=== PATIENT | female | born 1985 | race Caucasian/White ===

== ENCOUNTER 2016-09-26 00:20 | Inpatient (IN) ==
[2016-09-26 00:37] LABS: URINE SOURCE VOIDED
[2016-09-26 00:46] LABS: BILIRUBIN URINE NEGATIVE (NEGATIVE); BLOOD URINE 4+ (NEGATIVE); GLUCOSE URINE NEGATIVE (NEGATIVE); LEUKOCYTES URINE 2+ (NEGATIVE); NITRITE URINE NEGATIVE (NEGATIVE); PH URINE 6.5; PROTEIN URINE 1+(30 mg/dL) mg/dL (NEGATIVE); SP GRAVITY URINE 1.005; UROBILINOGEN URINE NORMAL
[2016-09-26 00:47] LABS: CLARITY SLIGHTLY CLOUDY (CLEAR); COLOR YELLOW
[2016-09-26 00:49] LABS: UR AMPHETAMINES QUAL NONE DETECTED (NONE DETECT); UR BARBITUATES QUAL NONE DETECTED (NONE DETECT); UR BENZODIAZEPIN QUAL NONE DETECTED (NONE DETECT); UR CANNABINOIDS QUAL NONE DETECTED (NONE DETECT); UR COCAINE QUAL NONE DETECTED (NONE DETECT); UR MDMA QUAL NONE DETECTED (NONE DETECT); UR METHADONE QUAL NONE DETECTED (NONE DETECT); UR METHAMPHETAMINE QUAL NONE DETECTED (NONE DETECT); UR OPIATES QUAL NONE DETECTED (NONE DETECT); UR OXYCODONE QUAL NONE DETECTED (NONE DETECT); UR PCP QUAL NONE DETECTED (NONE DETECT); UR TCA QUAL NONE DETECTED (NONE DETECT)
[2016-09-26] MEDS ORDERED: LR 3,000 ML ONE (00:49)
[2016-09-26] MEDS ORDERED: LR 1,000 ML IV SCH (01:10)
[2016-09-26] MEDS ORDERED: KEFZOL 1 GM/D5W 1 GM/50 ML IVPB IV PRN (01:10)
[2016-09-26] MEDS ORDERED: AMPICILLIN 2 GM/NS 2 GM/100 ML IVPB IV ONE (01:10)
[2016-09-26] MEDS ORDERED: BRETHINE SUBQ ONE (01:10)
[2016-09-26] MEDS ORDERED: PEPCID ONE (01:10)
[2016-09-26] MEDS ORDERED: REGLAN ONE (01:10)
[2016-09-26] MEDS ORDERED: STADOL IV ONE (01:10)
[2016-09-26] MEDS ORDERED: CELESTONE SOLUSPAN IM ONE (01:10)
[2016-09-26] MEDS ORDERED: BICITRA ONE (01:24)
[2016-09-26] MEDS ORDERED: SODIUM CHLORIDE 0.9% INJ ONE (01:25)
[2016-09-26] MEDS ORDERED: PEPCID IV ONE (01:25)
[2016-09-26] MEDS ORDERED: REGLAN IV ONE (01:25)
--- NOTE | 2016-09-26 01:25 | OB/GYN PROGRESS NOTE ---
Progress Note OB - . OB Progress Note: Laboratory Results - last 24 hr 09/26/16 09/26/16 00:36 00:36 Urine Source VOIDED Urine Color YELLOW Urine Clarity SLIGHTLY CLOUDY A Urine pH 6.5 Ur Specific [place] 1.005 Urine Protein 1+(30 mg/dL) A Urine Ketones NEGATIVE Urine Blood 4+ Urine Nitrite NEGATIVE Urine Bilirubin NEGATIVE Urine Urobilinogen NORMAL Urine WBC 2+ A Urine Glucose NEGATIVE Urine Opiates Screen NONE DETECTED Ur Oxycodone Screen NONE DETECTED Urine Methadone Screen NONE DETECTED Ur Barbituates Screen NONE DETECTED Ur Tricyclics Screen NONE DETECTED Ur Phencyclidine Scrn NONE DETECTED Ur Amphetamines Screen NONE DETECTED U Methamphetamines Scrn NONE DETECTED Urine MDMA Screen NONE DETECTED U Benzodiazepines Scrn NONE DETECTED Urine Cocaine Screen NONE DETECTED U Cannabinoids Screen NONE DETECTED Patient reports contractions that started last night. Reports vaginal bleeding that started at 6:00pm. Reports ultrasound with DB 10/13/16 by outside sono and a second sono with DB 10/27/16 done in [place]. She has not had care. H/o substance abuse. Currently on subutex. Reports being in a rehab for 6 months. Cervix: 2.5/70/0 A/P: 30yo @ 37w3d by patient reported DB, non-reassuring heart tracing -to OR for repeat Nayeli Joyner MD SILVERWARE BUFFING MACHINE OPERATOR
[2016-09-26 01:28] LABS: HEMATOCRIT 28.2 % (37.0-47.0); HEMOGLOBIN 9.1 g/dL (12.0-16.0); IMM GRAN# 0.14 X1000 (0.0-0.04); IMM GRAN% 0.7 % (0.0-0.5); LYMPH# 1.38 X1000 (1.2-3.4); LYMPH% 6.5 % (20.5-51.1); MANUAL DIFF NEEDED? YES; MCH 27.1 PG (27-31); MCHC 32.3 g/dL (33-37); MCV 83.9 FL (81-99); MONO# 1.38 X1000 (0.11-0.59); MONO% 6.5 % (1.7-9.3); MPV 11.7 FL (7.4-10.4); NEUT% 86.3 % (42.2-75.2); PLT 134 X1000 (130-400); RBC 3.36 XMIL (4.2-5.4)
[2016-09-26] MEDS ORDERED: FENTANYL ONE (01:31)
[2016-09-26] MEDS ORDERED: PITOCIN 20 UNITS/LR 20 UNITS/1,000 ML IV.SOLN ONE (01:31)
[2016-09-26] MEDS ORDERED: PITOCIN ONE (01:31)
[2016-09-26] MEDS ORDERED: DURAMORPH ONE (01:31)
[2016-09-26 01:55] LABS: BANDS 7 % (0-1); LYMPHS 9 % (21-51); MONO 1 % (1-9)
[2016-09-26 01:56] LABS: METAMYELOCYTES 2 %
[2016-09-26 01:57] LABS: RPR NON-REACTIVE (NONREACTIVE)
[2016-09-26 02:12] LABS: RAPID HIV PRESUMPTIVE NEGATIVE
[2016-09-26] MEDS ORDERED: VERSED ONE (02:35)
[2016-09-26 02:39] LABS: BLOOD TYPE VENOUS; PO2(98.6) 20 mmHg (30-55); SAMPLE BLOOD; SAO2 29.6 % (40.0-85.0)
[2016-09-26 02:40] LABS: PCO2(98.6) 127 mmHg (40-60); pH(98.6) < 6.80 (7.32-7.43)
[2016-09-26] MEDS ORDERED: METHERGINE IV ONE (03:31)
[2016-09-26 03:32] LABS: UR AMPHETAMINES QUAL NONE DETECTED (NONE DETECT); UR BARBITUATES QUAL NONE DETECTED (NONE DETECT); UR BENZODIAZEPIN QUAL NONE DETECTED (NONE DETECT); UR CANNABINOIDS QUAL NONE DETECTED (NONE DETECT); UR COCAINE QUAL NONE DETECTED (NONE DETECT); UR MDMA QUAL NONE DETECTED (NONE DETECT); UR METHADONE QUAL NONE DETECTED (NONE DETECT); UR METHAMPHETAMINE QUAL NONE DETECTED (NONE DETECT); UR OPIATES QUAL NONE DETECTED (NONE DETECT); UR OXYCODONE QUAL NONE DETECTED (NONE DETECT); UR PCP QUAL NONE DETECTED (NONE DETECT); UR TCA QUAL NONE DETECTED (NONE DETECT)
[2016-09-26] MEDS ORDERED: PITOCIN 20 UNITS/LR 20 UNITS/1,000 ML IV.SOLN IV ONE (03:36)
[2016-09-26] MEDS ORDERED: PITOCIN 10 UNITS/LR 10 UNIT/1,000 ML IV.SOLN IV SCH (03:36)
[2016-09-26] MEDS ORDERED: MOTRIN PO PRN (03:36)
[2016-09-26] MEDS ORDERED: DEMEROL IM PRN (03:36)
[2016-09-26] MEDS ORDERED: BOOSTRIX VACCINE IM ONE (03:36)
[2016-09-26] MEDS ORDERED: PHENERGAN IM PRN (03:36)
[2016-09-26] MEDS ORDERED: HYDROXYZINE PO PRN (03:36)
[2016-09-26] MEDS ORDERED: PITOCIN IM PRN (03:36)
[2016-09-26] MEDS ORDERED: CYTOTEC PO PRN (03:36)
[2016-09-26] MEDS ORDERED: DEMEROL PO PRN ×2 (03:36)
[2016-09-26] MEDS ORDERED: HYDROXYZINE IM PRN (03:36)
[2016-09-26] MEDS ORDERED: M-M-R II VACCINE SUBQ ONE (03:36)
[2016-09-26] MEDS ORDERED: HEMABATE IM ONE (04:27)
[2016-09-26 05:05] LABS: HEMATOCRIT 27.6 % (37.0-47.0); MCH 27.4 PG (27-31); MCHC 32.6 g/dL (33-37); MCV 83.9 FL (81-99); MPV 11.7 FL (7.4-10.4); RBC 3.29 XMIL (4.2-5.4)
[2016-09-26] MEDS ORDERED: ZOFRAN IV PRN (05:08)
[2016-09-26] MEDS ORDERED: DILAUDID IV PRN (05:08)
[2016-09-26] MEDS ORDERED: AMPICILLIN 1 GM/NS 1 GM/50 ML IVPB IV SCH (05:10)
[2016-09-26] MEDS ORDERED: CYTOTEC PR PRN (05:12)
[2016-09-26] MEDS ORDERED: CYTOTEC ONE (05:14)
[2016-09-26] MEDS ORDERED: ROBITUSSIN-DM PO PRN (06:47)
[2016-09-26] MEDS: TORADOL IV SCH ×2 (07:43→12:11)
[2016-09-26 08:49] LABS: RUBELLA SCREEN IMMUNE (IMMUNE)
[2016-09-26] MEDS: MYLICON PO SCH ×5 (09:49→20:14)
[2016-09-26] MEDS: SUBUTEX SL SCH ×2 (10:03→20:14)
[2016-09-26 10:34] LABS: METHB 1.2 % (0.0-1.5); O2(CT) 5.9 mL/dL (15.0-23.0); SAMPLE BLOOD; THB 14.8 g/dL (11.5-17.4)
[2016-09-26 10:40] LABS: pH(98.6) < 6.80 (7.35-7.45)
[2016-09-26 10:43] LABS: PCO2(98.6) 127 mmHg (35-45)
[2016-09-26 10:45] LABS: PO2(98.6) 20 mmHg (60-100)
[2016-09-26 10:47] LABS: ALLEN TEST NO; BLOOD TYPE CORD BLOOD; DRAW SITE UMBILICAL; MODALITY ROOM AIR; SAO2 29.6 % (95.0-100.0)
[2016-09-26] MEDS: NORCO-10 PO PRN ×2 (14:21→18:55)
[2016-09-26 17:23] LABS: HEMATOCRIT 16.5 % (37.0-47.0); MCHC 32.1 g/dL (33-37); MCV 84.2 FL (81-99); MPV 11.4 FL (7.4-10.4); RBC 1.96 XMIL (4.2-5.4)
[2016-09-26 17:27] LABS: HEMOGLOBIN 5.3 g/dL (12.0-16.0)
[2016-09-26] MEDS ORDERED: NS 1,000 ML ONE (17:53)
[2016-09-26] MEDS: PERICOLACE PO SCH (20:14)
[2016-09-27] MEDS: AMBIEN PO PRN ×2 (00:16→22:53)
[2016-09-27] MEDS: NORCO-10 PO PRN ×5 (00:17→20:39)
[2016-09-27] MEDS ORDERED: LR 1,000 ML IV SCH (03:03)
--- NOTE | 2016-09-27 03:38 | OPERATIVE NOTE ---
PROCEDURE DATE: 09/26/2016 PROCEDURE PERFORMED: Repeat section. PREOPERATIVE DIAGNOSES: 1. A 30-year-old, 4, para 3-0-0-3, at unsure gestation of 37 weeks and 3 days versus 35 weeks and 3 days. 2. No care. 3. History of drug abuse. 4. labor. 5. Vaginal bleeding, likely due to abruption. 6. Nonreassuring heart tracing. 7. Prior x3 POSTOPERATIVE DIAGNOSES: 1. A 30-year-old, 4, para 3-0-0-3, at unsure gestation of 37 weeks and 3 days versus 35 weeks and 3 days. 2. No care. 3. History of drug abuse. 4. labor. 5. Vaginal bleeding, likely due to abruption. 6. Nonreassuring heart tracing. 7. Prior x3 8. Status post high transverse section. SURGEON: Dr. Nayeli Joyner. ESTIMATED BLOOD LOSS: 300 mL. ANESTHESIA: Spinal. COMPLICATIONS: None. TECHNIQUE: This 30-year-old, G 4, P 3-0-0-3, at unsure gestation of 37 weeks and 3 days versus 35 weeks and 3 days presented to labor and delivery in labor with vaginal bleeding and nonreassuring heart tracing at which point, decision was made for emergent section. Patient has a history of x3. Patient was taken to the OR and a spinal was then placed. Patient was placed in the dorsal supine position. Patient was prepped and draped in the normal sterile fashion. Anesthesia was found to be adequate. A Pfannenstiel incision was then made through the skin, carried down through the subcutaneous tissue to the fascia. The fascia was then nicked in the middle and extended laterally with a knife and the Bernstein scissors. Zunilda clamps were then used to grasp the superior edge of the fascia. The rectus muscles were then dissected off of the fascia. The same was done to the inferior edge of the fascia. The rectus muscles were then in the midline using the scalpel. The peritoneum was identified and entered sharply using the Metzenbaum scissors. The peritoneum was then extended laterally, manually. A high transverse uterine incision was then made along with an inferior T incision. The was delivered atraumatically with good fundal pressure. The baby was delivered and bulb suctioned at delivery. The cord was clamped and cut, and the was passed off to the pediatrics team. Cord gas was obtained. However, unable to obtain cord blood due to minimum blood within the cord. The placenta was then delivered, meal- pieced out from the uterus. The uterus was exteriorized and cleared of clots and debris. The incision was then closed with running locked sutures of 0 Vicryl. A second layer of 0 Vicryl was used in an imbricating fashion. Then [id number] sutures of 0 Vicryl were used for good hemostasis. Good hemostasis was noted and the uterus was replaced into the abdominal cavity. Irrigation was performed until clear. Surgicel was placed over the uterine incision. The peritoneum was closed with running sutures of 3-0 Vicryl. The fascia was reapproximated with running sutures of 0 Vicryl and the skin was closed with running sutures of 3- 0 Monocryl. The patient was stable in the OR and the was stable in the nursery. FINDINGS: A 3 pound 12 ounce female with Apgars of 1, 7, and 9, with a likely gestation of 32 weeks. cc: Nayeli Joyner MD MTDD
[2016-09-27 07:49] LABS: BASO% 0.2 % (0.0-0.8); HEMATOCRIT 26.5 % (37.0-47.0); HEMOGLOBIN 8.9 g/dL (12.0-16.0); IMM GRAN# 0.11 X1000 (0.0-0.04); IMM GRAN% 0.6 % (0.0-0.5); LYMPH# 1.31 X1000 (1.2-3.4); LYMPH% 6.9 % (20.5-51.1); MANUAL DIFF NEEDED? YES; MCHC 33.6 g/dL (33-37); MCV 83.3 FL (81-99); MONO# 0.56 X1000 (0.11-0.59); MPV 11.6 FL (7.4-10.4); NEUT% 89.3 % (42.2-75.2); PLT 166 X1000 (130-400); RBC 3.18 XMIL (4.2-5.4)
[2016-09-27] MEDS: MYLICON PO SCH ×5 (08:27→20:39)
[2016-09-27] MEDS: SUBUTEX SL SCH ×2 (08:27→20:39)
[2016-09-27 09:08] LABS: BANDS 2 % (0-1); LYMPHS 7 % (21-51); MONO 3 % (1-9)
[2016-09-27 10:54] LABS: HEPATITIS B SURFACE ANTIGEN SEE COMMENTS
[2016-09-27 10:56] LABS: HIV ANTIBODY SCREEN SEE COMMENTS
--- NOTE | 2016-09-27 14:55 | OB/GYN PROGRESS NOTE ---
Progress Note OB - . Patient Problems: Current Active Problems Problem Status Onset No care in current Acute Hx of drug abuse Acute Intrauterine Acute OB Progress Note: Vital Signs - 24 hr 09/26/16 16:00 09/26/16 16:15 09/26/16 18:41 Temperature 98.2 F 97.6 F Pulse Rate 86 90 Respiratory Rate 18 20 Blood Pressure 89/41 95/51 O2 Sat by Pulse Oximetry 97 97 98 09/26/16 18:55 09/26/16 19:10 09/26/16 20:00 Temperature 97.7 F 98.5 F 98.2 F Pulse Rate 83 88 89 Respiratory Rate 18 18 Blood Pressure 93/50 106/59 108/61 O2 Sat by Pulse Oximetry 98 97 98 09/26/16 22:15 09/27/16 02:59 09/27/16 07:34 Temperature 98.8 F 99.4 F 99.5 F Pulse Rate 99 H 97 H 100 H Respiratory Rate 18 18 16 Blood Pressure 118/70 106/63 117/70 O2 Sat by Pulse Oximetry 99 96 95 09/27/16 07:45 09/27/16 11:15 Temperature 98.9 F Pulse Rate 92 H 88 Respiratory Rate 18 20 Blood Pressure 120/70 O2 Sat by Pulse Oximetry 96 97 Laboratory Results - last 24 hr 09/26/16 09/26/16 09/26/16 00:31 01:14 01:14 WBC RBC Hgb Hct MCV MCH MCHC RDW Std Deviation Plt Count MPV Immature Gran % (Auto) Neut % (Auto) Lymph % (Auto) Lassen % (Auto) Eos % (Auto) Baso % (Auto) Immature Gran # (Auto) Neut # (Auto) Lymph # (Auto) [place]assen # (Auto) Eos # (Auto) Baso # (Auto) Segmented Neutrophils Band Neutrophils Lymphocytes Monocytes Chlamydia/GC DNA Probe SEE COMMENTS Hep Bs Antigen SEE COMMENTS HIV 1&2 Antibody Screen Blood Type A POSITIVE Antibody Screen NEGATIVE Crossmatch See Detail 09/26/16 09/26/16 09/27/16 02:12 16:50 07:00 WBC 25.01 H 18.86 H RBC 1.96 L 3.18 L Hgb 5.3 L* D 8.9 L D Hct 16.5 L D 26.5 L D MCV 84.2 83.3 MCH 27.0 28.0 MCHC 32.1 L 33.6 RDW Std Deviation 15.7 H 15.3 H Plt Count 146 D 166 MPV 11.4 H 11.6 H Immature Gran % (Auto) 0.6 H Neut % (Auto) 89.3 H Lymph % (Auto) 6.9 L Lassen % (Auto) 3.0 Eos % (Auto) 0.0 Baso % (Auto) 0.2 Immature Gran # (Auto) 0.11 H Neut # (Auto) 16.85 H Lymph # (Auto) 1.31 Lassen # (Auto) 0.56 Eos # (Auto) 0.00 Baso # (Auto) 0.03 Segmented Neutrophils 88 H Band Neutrophils 2 H Lymphocytes 7 L Monocytes 3 Chlamydia/GC DNA Probe Hep Bs Antigen HIV 1&2 Antibody Screen SEE COMMENTS Blood Type Antibody Screen Crossmatch Patient reports pain is well controlled. She is ambulating and voiding without difficulty. Reports passing flatus. Tolerating diet. Baby is at [facility]. Patient reports that baby is doing well and breathing on his own. Reports baby has a feeding tube. Denies headache, SOB, RUQ or abdominal pain, or visual changes Gen: NAD, alert Abd: soft, appropriately tender, fundus is firm and at the umbilicus; incision is clean dry and intact with steri strips in place Pelvis: minimal lochia Ext: 1+ edema bilaterally in lower extremities; edema in right hand A/P: 30yo who is POD#1 s/p urgent Repeat high transverse , h/ o substance abuse, no care -continue routine care -continue subutex -continue regular diet -encourage ambulation Dispo: home POD#2 or POD#3 Nayeli Joyner MD DIESEL TECHNICIAN MECHANIC
[2016-09-27] MEDS ORDERED: LASIX PO ONE (16:30)
[2016-09-27] MEDS: NICODERM PATCH TD SCH (16:55)
[2016-09-27] MEDS: PERICOLACE PO SCH (20:39)
[2016-09-27] MEDS: FERROUS SULFATE PO SCH (20:39)
[2016-09-27] MEDS: DULCOLAX PR PRN (22:56)
[2016-09-28] MEDS: MYLICON PO PRN ×2 (03:38→18:54)
[2016-09-28] MEDS: NORCO-10 PO PRN ×5 (03:39→22:36)
[2016-09-28 06:54] LABS: BE 1.8 mmoll (-3.0-3.0); BLOOD TYPE ARTERIAL; DRAW SITE R RADIAL; METHB 1.3 % (0.0-1.5); O2(CT) 10.7 mL/dL (15.0-23.0); PCO2(98.6) 34 mmHg (35-45); PO2(98.6) 56 mmHg (60-100); SAMPLE BLOOD; SAO2 94.1 % (95.0-100.0); THB 8.4 g/dL (11.5-17.4); pH(98.6) 7.48 (7.35-7.45)
[2016-09-28 06:59] LABS: ALLEN TEST YES; MODALITY ROOM AIR
[2016-09-28 07:23] LABS: BASO% 0.1 % (0.0-0.8); HEMATOCRIT 24.1 % (37.0-47.0); HEMOGLOBIN 7.8 g/dL (12.0-16.0); IMM GRAN# 0.12 X1000 (0.0-0.04); IMM GRAN% 0.9 % (0.0-0.5); LYMPH# 1.22 X1000 (1.2-3.4); LYMPH% 8.8 % (20.5-51.1); MANUAL DIFF NEEDED? YES; MCH 27.3 PG (27-31); MCHC 32.4 g/dL (33-37); MCV 84.3 FL (81-99); MONO# 0.59 X1000 (0.11-0.59); MONO% 4.3 % (1.7-9.3); MPV 10.9 FL (7.4-10.4); NEUT% 85.9 % (42.2-75.2); PLT 127 X1000 (130-400); RBC 2.86 XMIL (4.2-5.4)
--- NOTE | 2016-09-28 07:46 | EKG Report ---
Test Performed on : 09/28/2016 06:38:16 AM Test Reason : fever, cough Blood Pressure : / mmHG Vent. Rate : 123 BPM Atrial Rate : 123 BPM P-R Int : 128 ms QRS Dur : 076 ms QT Int : 300 ms P-R-T Axes : 050 055 024 degrees QTc Int : 429 ms Sinus tachycardia. Possible Left atrial enlargement Borderline ECG No previous ECGs available Confirmed by Manuel Mansfield MD ([id number]) on 10/04/2016 10:01:49 PM
[2016-09-28 07:55] LABS: BANDS 1 % (0-1); LYMPHS 5 % (21-51); MONO 1 % (1-9)
[2016-09-28] MEDS: MYLICON PO SCH ×4 (08:19→20:17)
[2016-09-28] MEDS: FERROUS SULFATE PO SCH ×2 (08:19→20:17)
[2016-09-28] MEDS: NICODERM PATCH TD SCH ×2 (08:19→19:08)
[2016-09-28] MEDS: SUBUTEX SL SCH ×2 (08:19→20:17)
--- NOTE | 2016-09-28 08:58 | Diag Imaging Result Doc PS360 ---
EXAM: CHEST-2 VIEWS INDICATION: cough, decreased SaO2, fever TECHNIQUE: 2 views COMPARISON: None. FINDINGS: There is suggestion of mild infiltrate and/or subsegmental atelectasis at the lung bases, more prominent on the right. There is blunting of the costophrenic angles suggesting possible trace effusions. There is no evidence of pneumothorax. Cardiac silhouette and central vasculature are grossly unremarkable. IMPRESSION: Suggestion of mild bibasilar atelectasis and/or infiltrate, most prominent on the right, and questionable trace effusions. Electronically signed by Olvin Dietrich 09/28/2016 8:56 AM
[2016-09-28 09:06] LABS: AGAP 14; ALBUMIN 2.1 g/dL (3.5-5.0); ALKALINE PHOSPHATASE 167 U/L (32-104); BUN 13 mg/dL (8-22); CALCIUM 7.2 mg/dL (8.8-10.2); CHLORIDE 103 mmol/L (98-107); COSMO 274; GOT 9 U/L (10-30); GPT < 5 U/L (10-36); POTASSIUM 3.3 mmol/L (3.5-5.1); SODIUM 137 mmol/L (136-145); TCO2 21 mmol/L (25-35); TOTAL PROTEIN 4.8 g/dL (6.3-8.3)
--- NOTE | 2016-09-28 09:14 | CONSULTATION ---
DATE OF CONSULTATION: 09/28/2016 CHIEF COMPLAINT: Medical consultation for low-grade temp and leukocytosis. HISTORY OF PRESENTING ILLNESS: This is a 30-year-old female who was admitted on 09/26/2016 for a of her fourth baby. She did well with her procedure, but was noted to have elevation in her white blood cell count on 09/26/2016 of 25.01. It is down today to 13.83, but at 3:40 this a.m. on 09/28/2016, she had a low-grade temp of 100.3 degrees. This a.m., she is saturating 89% on room air. It is noted that she is a 1 to 2 pack a day smoker, and has been so since she was 14 years old, so we will obtain a chest x-ray. We have repeated her ABG, and we will follow along with this patient throughout the remainder of her hospitalization. We will now place her on O2 per protocol to keep saturations greater than 92%. Her site is clean and dry. No signs of infection noted at this time. PAST MEDICAL HISTORY: She had preeclampsia with this last , otherwise no medical problems. PAST SURGICAL HISTORY: x4. FAMILY HISTORY: Lung cancer in both of her grandparents. SOCIAL HISTORY: She currently lives with family. She is a 1 to 2 pack a day smoker, and has been so since she was 14 years old. No alcohol use and no illicit drug use. It is noted that she takes Subutex 8 mg sublingually b.i.d. IMAGING AND LABORATORY DATA: Laboratory data for today shows a white blood cell count of 13.83, hemoglobin 7.8, hematocrit 24.1. I do note here that she received 2 units of packed red blood cells on 09/26/2016 when she dropped her hemoglobin and hematocrit to 5.3 and 16.5, but that is improving. ABG this a.m. showed a pH of 7.48, pCO2 of 34, PO2 of 56, bicarb 26.2. Glucose 101. Chest x-ray is pending this morning. EKG this a.m. showed sinus tachycardia at 123. REVIEW OF SYSTEMS: She denies any blurred vision, dizziness, chest pain. She has had a productive cough, some mild shortness of breath. Denied any constipation, diarrhea, burning or hurting with urination. PHYSICAL EXAMINATION: Vital Signs: This a.m. with a temperature of 98.9 degrees, pulse 130, respirations 20, blood pressure 123/70. It is noted that around 3:40 a.m. today, she had a temperature of 100.3 degrees. General: This is a 30-year-old female who is lying in the bed, answers questions appropriately. HEENT: Normocephalic and atraumatic. Pupils are equal, round, and reactive to light. Extraocular movements are intact. The oropharynx and nares are clear. Neck: Supple. Lungs: Clear to auscultation bilaterally with equal lung expansion and chest wall movement. Heart: Regular rate and rhythm. No murmurs, rubs, or gallops. Abdomen: Soft, nontender, nondistended. Steri-Strips to incision, dry and intact. No erythema or edema noted. Extremities: There is no clubbing, cyanosis, or edema. Neurological: Cranial nerves II through XII are grossly intact. ASSESSMENT: 1. Hypoxemia. 2. Leukocytosis. 3. Tachycardia. 4. Tobacco abuse. 5. Status post section on 09/26/2016. PLAN: We will place her on O2 per protocol, incentive spirometry, check a CMP this a.m. and a UA. Chest x-ray again is pending. Her white cells, even though they are elevated, have improved as she is down to 13.83. At her highest on 09/26/2016, they were 25.01, so we will wait until we get the chest x-ray results and the UA back to see if there is truly any infection going on. Will give her some DuoNebs every 4 hours as this may strictly just be related to her tobacco use as she is again, a 1 to 2 pack a day smoker, and did not quit during her , and further orders after review of pending tests. Thank you for the opportunity to follow this patient throughout the remainder of her hospitalization. Dictated by ISA Nino for Tom Carlos MD cc: ISA Nino MD Emerald V. Screws, MD
[2016-09-28] MEDS: DUONEB (A & A) INH SCH ×4 (10:01→23:01)
[2016-09-28 11:21] LABS: BILIRUBIN URINE NEGATIVE (NEGATIVE); BLOOD URINE 4+ (NEGATIVE); CLARITY CLEAR (CLEAR); COLOR YELLOW; GLUCOSE URINE NEGATIVE (NEGATIVE); LEUKOCYTES URINE 2+ (NEGATIVE); NITRITE URINE NEGATIVE (NEGATIVE); PH URINE 6.5; PROTEIN URINE 1+(30 mg/dL) mg/dL (NEGATIVE); UROBILINOGEN URINE NORMAL
[2016-09-28 11:27] LABS: URINE CULTURE PL NEEDED? YES; URINE EPITHELIAL CELLS >10 /HPF (<10); URINE RBC 20-40 /HPF (<10); URINE SOURCE CLEAN CATCH
[2016-09-28] MEDS ORDERED: NS 500 ML IV ONE (13:56)
[2016-09-28] MEDS ORDERED: KLOR-CON PO ONE (13:58)
[2016-09-28] MEDS ORDERED: ZITHROMAX 500 MG/NS 500 MG/250 ML IVPB IV SCH (14:00)
[2016-09-28] MEDS ORDERED: ROCEPHIN 1 GM/NS 1 GM/50 ML IVPB IV SCH (14:00)
[2016-09-28] MEDS ORDERED: NS 250 ML ONE (17:52)
[2016-09-28] MEDS ORDERED: VANCOMYCIN IV PER PHARMACY MISC SCH (18:30)
[2016-09-28] MEDS ORDERED: VANCOMYCIN 1,500 MG in NS 250 ML IV ONE (20:00)
[2016-09-28] MEDS: PERICOLACE PO SCH (20:17)
[2016-09-28] MEDS: AMBIEN PO PRN (22:36)
--- NOTE | 2016-09-28 23:03 | OB/GYN PROGRESS NOTE ---
Progress Note OB - . Patient Problems: Current Active Problems Problem Status Onset Status post emergency section Acute No care in current Acute Hx of drug abuse Acute Intrauterine Acute OB Progress Note: Vital Signs - 24 hr 09/28/16 00:07 09/28/16 03:39 09/28/16 05:20 Temperature 99.0 F 100.3 F H 98.9 F Pulse Rate 111 H 128 H 130 H Respiratory Rate 20 20 Blood Pressure 115/70 123/70 O2 Sat by Pulse Oximetry 99 95 94 L 09/28/16 08:21 09/28/16 10:11 09/28/16 11:35 Temperature 99.6 F 98.5 F Pulse Rate 130 H 120 H 130 H Respiratory Rate 19 22 18 Blood Pressure 108/67 88/56 O2 Sat by Pulse Oximetry 89 L 90 L 95 09/28/16 19:28 09/28/16 20:14 Temperature 100.7 F H Pulse Rate 132 H 136 H Respiratory Rate 20 20 Blood Pressure 108/59 O2 Sat by Pulse Oximetry 86 L 96 09/28/16 06:50 - Final Blood 09/28/16 06:55 - Final Blood Laboratory Results - last 24 hr 09/28/16 09/28/16 09/28/16 06:33 06:55 06:55 WBC 13.83 H RBC 2.86 L Hgb 7.8 L Hct 24.1 L MCV 84.3 MCH 27.3 MCHC 32.4 L RDW Std Deviation 15.2 H Plt Count 127 L MPV 10.9 H Immature Gran % (Auto) 0.9 H Neut % (Auto) 85.9 H Lymph % (Auto) 8.8 L [place] % (Auto) 4.3 Eos % (Auto) 0.0 Baso % (Auto) 0.1 Immature Gran # (Auto) 0.12 H Neut # (Auto) 11.89 H Lymph # (Auto) 1.22 [place] # (Auto) 0.59 Eos # (Auto) 0.00 Baso # (Auto) 0.01 Segmented Neutrophils 93 H Band Neutrophils 1 Lymphocytes 5 L Monocytes 1 Specimen Type ARTERIAL Sample Site R RADIAL pH 7.48 H pCO2 34 L pO2 56 L HCO3 26.2 H Base Excess 1.8 Oxyhemoglobin 89.8 L* ABG O2 Sat (Calculated) 10.7 L ABG O2 Saturation 94.1 L ABG Carboxyhemoglobin 3.30 H ABG Methemoglobin 1.3 Davidson Test YES A-a O2 Difference 51.0 Total Hemoglobin 8.4 L Lactate 1.90 Blood Gas Modality ROOM AIR FiO2 % 21.0 Sodium 137 Potassium 3.3 L Chloride 103 Carbon Dioxide 21 L Anion Gap 14 BUN 13 Creatinine 0.8 Estimated GFR/1.73 m2 > 60 BUN/Creatinine Ratio 16 Glucose 92 Calculated Osmolality 274 Calcium 7.2 L Total Bilirubin 0.20 AST 9 L ALT < 5 L Alkaline Phosphatase 167 H Total Protein 4.8 L Albumin 2.1 L Globulin 3.0 Albumin/Globulin Ratio 1.0 Urine Source Urine Color Urine Clarity Urine Turbidity Urine pH Ur Specific [place] Urine Protein Ur Glucose (Stick) Urine Ketones Ur Ketones (Stick) Urine Blood Urine Nitrite Urine Bilirubin Urine Urobilinogen Urobilinogen Dipstick Urine Leukocytes Urine WBC (Auto) Urine RBC (Auto) U Epithel Cells (Auto) Urine Bacteria (Auto) Urine Microscopic RBC Urine WBC Urine Microscopic WBC Ur Epithelial Cells Urine Bacteria Urine Glucose 09/28/16 09/28/16 10:00 11:06 WBC RBC Hgb Hct MCV MCH MCHC RDW Std Deviation Plt Count MPV Immature Gran % (Auto) Neut % (Auto) Lymph % (Auto) [place] % (Auto) Eos % (Auto) Baso % (Auto) Immature Gran # (Auto) Neut # (Auto) Lymph # (Auto) [place] # (Auto) Eos # (Auto) Baso # (Auto) Segmented Neutrophils Band Neutrophils Lymphocytes Monocytes Specimen Type Sample Site pH pCO2 pO2 HCO3 Base Excess Oxyhemoglobin ABG O2 Sat (Calculated) ABG O2 Saturation ABG Carboxyhemoglobin ABG Methemoglobin Davidson Test A-a O2 Difference Total Hemoglobin Lactate Blood Gas Modality FiO2 % Sodium Potassium Chloride Carbon Dioxide Anion Gap BUN Creatinine Estimated GFR/1.73 m2 BUN/Creatinine Ratio Glucose Calculated Osmolality Calcium Total Bilirubin AST ALT Alkaline Phosphatase Total Protein Albumin Globulin Albumin/Globulin Ratio Urine Source CLEAN CATCH Cancelled Urine Color YELLOW Cancelled Urine Clarity CLEAR Urine Turbidity Cancelled Urine pH 6.5 Cancelled Ur Specific [place] 1.010 Cancelled Urine Protein 1+(30 mg/dL) A Cancelled Ur Glucose (Stick) Cancelled Urine Ketones NEGATIVE Ur Ketones (Stick) Cancelled Urine Blood 4+ Cancelled Urine Nitrite NEGATIVE Cancelled Urine Bilirubin NEGATIVE Cancelled Urine Urobilinogen NORMAL Urobilinogen Dipstick Cancelled Urine Leukocytes Cancelled Urine WBC (Auto) Cancelled Urine RBC (Auto) Cancelled U Epithel Cells (Auto) Cancelled Urine Bacteria (Auto) Cancelled Urine Microscopic RBC 20-40 A Urine WBC 2+ A Urine Microscopic WBC 10-20 A Ur Epithelial Cells >10 A Urine Bacteria 1+ Urine Glucose NEGATIVE Patient is without complaint. Continues to have trouble with coughing up phlegm. Denies chest pain or SOB. Gen: NAD, alert Abd: soft, appropriately tender, fundus firm and 1 finger breadth below umbilicus, incision clean dry and intact with steri strips in place Pelvis: minimal lochia Ext: 1+ edema bilaterally A/P: A/P: 30yo who is POD#2 s/p urgent Repeat high transverse C- section, hemorrhage s/p 2 units of pRBCs, h/o substance abuse, no care, febrile morbidity, tachycardia, positive blood cultures, pneumonia, atelectasis -continue routine care -patient is s/p Hospitalist consult; continue to follow recommendations -s/p chest x-ray -s/p EKG -incentive spirometer -encourage ambulation Dispo: remain hospitalized Nayeli Joyner MD MACHINE PRECISION ETCHER
[2016-09-29] MEDS: MOTRIN PO PRN (01:33)
[2016-09-29 03:04] LABS: UR AMPHETAMINES QUAL NONE DETECTED (NONE DETECT); UR BARBITUATES QUAL NONE DETECTED (NONE DETECT); UR BENZODIAZEPIN QUAL NONE DETECTED (NONE DETECT); UR COCAINE QUAL NONE DETECTED (NONE DETECT); UR MDMA QUAL NONE DETECTED (NONE DETECT); UR METHADONE QUAL NONE DETECTED (NONE DETECT)
[2016-09-29 03:05] LABS: UR CANNABINOIDS QUAL NONE DETECTED (NONE DETECT); UR METHAMPHETAMINE QUAL NONE DETECTED (NONE DETECT); UR OPIATES QUAL PRESUMPTIVE POSITIVE (NONE DETECT); UR OXYCODONE QUAL NONE DETECTED (NONE DETECT); UR PCP QUAL NONE DETECTED (NONE DETECT); UR TCA QUAL NONE DETECTED (NONE DETECT)
[2016-09-29] MEDS: DUONEB (A & A) INH SCH ×6 (03:59→22:49)
[2016-09-29 05:22] LABS: BILIRUBIN URINE NEGATIVE (NEGATIVE); CLARITY VERY CLOUDY (CLEAR); COLOR YELLOW; GLUCOSE URINE NEGATIVE (NEGATIVE); URINE SOURCE CLEAN CATCH
[2016-09-29 05:23] LABS: BLOOD URINE 4+ (NEGATIVE); LEUKOCYTES URINE 2+ (NEGATIVE); NITRITE URINE NEGATIVE (NEGATIVE); PROTEIN URINE 1+(30 mg/dL) mg/dL (NEGATIVE); UROBILINOGEN URINE NORMAL
[2016-09-29 05:28] LABS: URINE CULTURE PL NEEDED? YES; URINE EPITHELIAL CELLS <10 /HPF (<10)
[2016-09-29 05:29] LABS: URINE CAST NONE SEEN /LPF; URINE CRYSTAL NONE SEEN /HPF
[2016-09-29 07:07] LABS: BASO% 0.1 % (0.0-0.8); HEMATOCRIT 20.5 % (37.0-47.0); HEMOGLOBIN 6.6 g/dL (12.0-16.0); IMM GRAN# 0.21 X1000 (0.0-0.04); IMM GRAN% 1.2 % (0.0-0.5); LYMPH# 1.31 X1000 (1.2-3.4); LYMPH% 7.2 % (20.5-51.1); MANUAL DIFF NEEDED? YES; MCH 27.6 PG (27-31); MCHC 32.2 g/dL (33-37); MCV 85.8 FL (81-99); MONO# 1.14 X1000 (0.11-0.59); MONO% 6.3 % (1.7-9.3); MPV 11.7 FL (7.4-10.4); NEUT% 85.2 % (42.2-75.2); PLT 73 X1000 (130-400); RBC 2.39 XMIL (4.2-5.4)
[2016-09-29 07:08] LABS: AGAP 13; BUN 11 mg/dL (8-22); CALCIUM 7.1 mg/dL (8.8-10.2); CHLORIDE 104 mmol/L (98-107); COSMO 277; POTASSIUM 3.9 mmol/L (3.5-5.1); SODIUM 139 mmol/L (136-145); TCO2 22 mmol/L (25-35)
[2016-09-29] MEDS: FERROUS SULFATE PO SCH ×2 (09:22→21:26)
[2016-09-29] MEDS: SUBUTEX SL SCH ×2 (09:22→21:26)
[2016-09-29] MEDS: NORCO-10 PO PRN ×3 (09:22→19:55)
[2016-09-29] MEDS: MYLICON PO SCH ×4 (09:23→21:29)
[2016-09-29] MEDS: NICODERM PATCH TD SCH (09:29)
[2016-09-29] MEDS: ZOSYN 3.375 GM/NS 3.375 GM/50 ML IVPB IV SCH ×2 (10:05→19:35)
[2016-09-29] MEDS ORDERED: NS 100 ML ONE (10:08)
--- NOTE | 2016-09-29 11:37 | PROGRESS NOTE ---
DATE: 09/29/2016 SUBJECTIVE: Patient resting quietly in bed. Has now been transferred from the to the medical unit, to room 270. OBJECTIVE: Vital Signs: Temperature 97.7 degrees, pulse 108, respirations 20, blood pressure 118/74, saturating 95% on room air. General: This is a 30-year-old female, status post section on 09/26/2016. HEENT: Normocephalic and atraumatic. Pupils are equal, round, reactive to light. Extraocular movements are intact. Oropharynx and nares are clear. Neck: Supple. Lungs: Decreased breath sounds to bilateral lower lobes. Upper lobes are clear. There is equal lung expansion and chest wall movement. Heart: Regular rate and rhythm. No murmurs, rubs, or gallops. Abdomen: Soft. There is some tenderness to her section site. Steri- Strips dry and intact. Bowel sounds are present x4 quadrants. Extremities: No clubbing, cyanosis, or edema. Neurologic: The cranial nerves 2-12 appear grossly intact. LABORATORY DATA: White blood cell count of 18.23, hemoglobin of 6.6, hematocrit 20.5, and platelets 73,000. Sodium 139, potassium 3.9, chloride 104, CO2 of 22, BUN of 11 , creatinine 0.5, glucose 106. Urinalysis this a.m. showed 4+ blood, 2+ white blood cells, and 1 + bacteria. Urine drug screen showed presumptive positive for opiates. Blood cultures showed Gram -positive cocci with a presumptive positive for Methicillin-resistant Staphylococcus aureus, confirmation to follow, x2 sets. ASSESSMENT: 1. Presumptive positive Methicillin-resistant Staphylococcus aureus bacteremia. 2. Anemia. 3. Bilateral lower lobe pneumonia. 4. Tobacco abuse. PLAN: Again, she was transferred from to the medical unit. We will transfuse 2 units of packed red blood cells today. We will go ahead and place her on MRSA precautions, since it is a presumptive positive. We will remove those if she turns out to be negative. We will check an echocardiogram. We have consulted Infectious Disease, Dr. Baldwin. We will obtain a sputum culture. We will place her on vancomycin per pharmacy protocol and Zosyn 3.375 g IV q.6. Patient instructed that she cannot leave the floor, no smoking, and she verbalizes understanding. Will recheck a CBC and BMP in the a.m. Dictated by ISA Nino for [place] MD cc: ISA Nino MD Emerald V. Screws, MD pt examined , agree with above, will need to rule out endocarditis and follow closely APENOT MTDD
[2016-09-29] MEDS ORDERED: NS 250 ML ONE (12:12)
[2016-09-29 12:47] LABS: BANDS 1 % (0-1); HYPOCHROM OCCASIONAL; LYMPHS 6 % (21-51); MONO 2 % (1-9)
[2016-09-29] MEDS ORDERED: VANCOMYCIN 1 GM in NS 250 ML IV SCH (14:00)
--- NOTE | 2016-09-29 19:55 | CONSULTATION ---
DATE OF CONSULTATION: 09/29/2016 CONCLUSION: Patient has a methicillin-resistant Staph aureus bacteremia. She also may have a bibasilar pneumonia which would be due to the same organism i.e. methicillin- resistant Staph aureus. Exactly how this infection originated is somewhat uncertain. The patient could have developed pneumonia following her section and then the pneumonia was responsible for the patient's bacteremia. On echocardiogram there may be a vegetation on the tricuspid valve and if this is so then would appear that the patient developed endocarditis and then there was secondary pneumonia to that. If indeed she does have methicillin-resistant Staph aureus tricuspid valve endocarditis that would be very suspicious for IV drug use causing the infection. RECOMMENDATIONS: I agree with treating the patient for at least 2 weeks if she just has the bacteremia and possible pneumonia. If however it is determined that she has tricuspid valve endocarditis then she will require a 6 week treatment with IV vancomycin. I have written not to install the PICC until we are certain that the repeat blood cultures which were drawn today are negative. Specifically I would wait until the repeat blood cultures are negative at 48 hours which would mean the PICC at the earliest would be put in on SundayOctober 02. DISCUSSION: The patient had a section. She has developed fever and some cough. Her blood cultures are growing methicillin-resistant Staph. Her chest x-ray shows bibasilar infiltrates versus atelectasis. On the echocardiogram there may be a vegetation on the tricuspid valve although the [employer] certified network associate has not read the study yet. The patient's lab tests show a CBC the white count is 18,230, hemoglobin 6.6 and platelet count is 73,000. Creatinine is 0.5. GFR is greater than 60. Her liver function studies were normal except for the alkaline phosphatase which was 167. The patient urinalysis did show white cells and bacteria but the urine culture was negative. The patient's blood cultures as mentioned above are growing methicillin-resistant Staph aureus. The patient's drug screen was positive for opiates. PAST MEDICAL HISTORY/REVIEW OF SYSTEMS: Eyes and ears: She denies difficulty hearing or seeing. Neck: No stiffness. Respiratory: No cough or dyspnea. The patient now since she has been in the hospital is trying to cough to clear her lungs. Cardiovascular: No chest pain or palpitations. GI: No nausea, vomiting, or diarrhea. : No dysuria or flank pain. Endocrine: She is not a diabetic and she does not have thyroid disease. Neurologic: She does not have seizures and she does not report any motor or sensory loss. Integument: No rash. 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 She has delivered all her children by C- section. PREVIOUS HOSPITALIZATIONS AND OPERATIONS: The patient has had 4 C-sections. MEDICAL DISEASES: Positive for preeclampsia. INFECTIOUS DISEASE HISTORY: Positive for UTI. FAMILY HISTORY: Positive for diabetes mellitus and myocardial infarction. SOCIAL HISTORY: The patient is . She smokes cigarettes. She denies doing drug use or drinking alcoholic beverages. ALLERGIES: Chart shows no known drug allergies. Drug screen was positive for opiates. HOME MEDICATIONS: Include oxycodone, ferrous sulfate, Colace and Subutex. PHYSICAL EXAMINATION: Vital Signs: Temperature is 98.3 degrees, pulse 104, respirations 20, blood pressure 98/59. General: The patient looks somewhat ill. She is in no acute distress however Head, eyes, ears, nose, and Throat: No drainage noted from the nose or ears. Examination of the mouth did not show any white patches or ulcers. Neck: No meningismus. Thorax: No increased AP diameter of the chest. Lungs: There were a few bibasilar rales. Cardiovascular: Regular heart rate. I did not hear a murmur. The patient has a small amount of edema in both legs. Abdomen: Soft and nontender. The patient's incision was intact. There was no erythema. Neurologic: Patient is alert. She can move her extremities. There is no tremor. Her sensation was intact to touch. Her memory, as regarding her medical history was intact also. Integument: No rash noted. Thank you for the consult. ADDENDUM: Discussed with cardiology-patient has a vegetation on the tricuspid valve. PEG to be ordered by Dr. Raymundo. cc: MD Nayeli Davidson MD [facility] CENTERHugo
[2016-09-29] MEDS: PERICOLACE PO SCH (21:26)
[2016-09-29] MEDS: AMBIEN PO PRN (21:26)
[2016-09-29] MEDS ORDERED: BLISTEX MEDICATED BERRY LIP BALM TOP PRN (21:37)
[2016-09-30] MEDS: NORCO-10 PO PRN ×5 (00:26→21:41)
[2016-09-30] MEDS: DUONEB (A & A) INH SCH ×6 (04:04→23:09)
[2016-09-30] MEDS: MYLICON PO PRN (05:25)
[2016-09-30 07:27] LABS: MANUAL DIFF NEEDED? NO
[2016-09-30 07:31] LABS: BASO% 0.1 % (0.0-0.8); EOS# 0.02 X1000 (0.0-0.7); EOS% 0.1 % (0.0-10.0); HEMATOCRIT 31.3 % (37.0-47.0); HEMOGLOBIN 10.5 g/dL (12.0-16.0); IMM GRAN# 0.18 X1000 (0.0-0.04); IMM GRAN% 1.2 % (0.0-0.5); LYMPH# 1.28 X1000 (1.2-3.4); LYMPH% 8.6 % (20.5-51.1); MCH 28.1 PG (27-31); MCHC 33.5 g/dL (33-37); MCV 83.7 FL (81-99); MONO# 0.78 X1000 (0.11-0.59); MONO% 5.2 % (1.7-9.3); MPV 11.1 FL (7.4-10.4); NEUT% 84.8 % (42.2-75.2); PLT 89 X1000 (130-400); RBC 3.74 XMIL (4.2-5.4)
[2016-09-30 07:44] LABS: AGAP 14; BUN 9 mg/dL (8-22); CALCIUM 7.7 mg/dL (8.8-10.2); CHLORIDE 103 mmol/L (98-107); COSMO 278; POTASSIUM 3.8 mmol/L (3.5-5.1); SODIUM 140 mmol/L (136-145); TCO2 23 mmol/L (25-35)
[2016-09-30] MEDS: NICODERM PATCH TD SCH (08:57)
[2016-09-30] MEDS: SUBUTEX SL SCH ×2 (08:57→21:19)
[2016-09-30] MEDS: MYLICON PO SCH ×5 (08:57→21:19)
[2016-09-30] MEDS: FERROUS SULFATE PO SCH ×2 (08:57→21:19)
[2016-09-30] MEDS: VANCOMYCIN 1,500 MG in NS 250 ML IV SCH (08:57)
--- NOTE | 2016-09-30 12:36 | PROGRESS NOTE ---
DATE: 09/30/2016 SUBJECTIVE: Patient resting quietly in bed. States she is having some abdominal pain to her section insertion site. OBJECTIVE: It is noted that around midnight this a.m. she had a temperature of 102.9 degrees. Blood pressure 121/75. She as saturating 89% on 2 L via nasal cannula. This a.m. HEENT: Normocephalic and atraumatic. Pupils are equal, round, and reactive to light. The extraocular movements are intact. The oropharynx and nares are clear. Neck is supple. Lungs are clear to auscultation bilaterally with equal lung expansion and chest wall movement. Heart with regular rate and rhythm. No murmurs, rubs, or gallops. Abdomen soft. There is tenderness to her incision site. Bowel sounds are present in all 4 quadrants. The site is clean and dry at this time. Extremities: No clubbing, cyanosis, or edema. Neurological: Cranial nerves 2-12 are grossly intact. LABORATORY DATA: White blood cell count of 14.86. Hemoglobin 10.5, hematocrit 31.3, platelets 89,000. Sodium 140, potassium 3.8, chloride 103, CO2 of 23. BUN of 9. Creatinine 0.5, glucose 97. Her final blood culture results show a definite MRSA bacteremia. We repeated her blood cultures again yesterday. They are gram-positive cocci. Also, her urine culture has gram-positive cocci. We are waiting on the sensitivities for those two. ASSESSMENT AND PLAN: 1. Methicillin-resistant Staphylococcus aureus bacteremia. Per Infectious Diseases documentation, her echocardiogram showed the possibility of some vegetation. She will need a transesophageal echocardiography. She will continue her IV antibiotic treatment in hospital. Right now, she will need a PICC line placed once we get some clear blood cultures. We will recheck those again tomorrow. If she does have a vegetation, she will need 6 weeks of IV home antibiotic therapy. Otherwise, 2 weeks of IV antibiotic per Infectious Disease documentation. 2. Anemia, resolved, status post 2 units of packed red blood cells. 3. Bilateral lower lobe pneumonia. We will continue her antibiotics, breathing treatments. We are going to recheck her O2 saturation, continue O2 per protocol. 4. Tobacco abuse. The patient instructed she is not allowed to leave the floor , and she has a nicotine patch in place. Dictated by ISA Nino for [place] Ray[place]undo MD cc: ISA Nino MD Emerald V. Screws, MD pt has tricuspid endocarditis, per echo report, will need 6 weeks of IV abx, with IVDU hx, will be difiicult to manage at home, also pt has developed resp failure, will diurese and also pursue chest CT to rule out septic emboli APENOT MTDD
[2016-09-30] MEDS: LASIX IV SCH (15:03)
--- NOTE | 2016-09-30 17:08 | ECHO REPORT ---
ORDER DATE: 09/29/2016 MEASUREMENTS: Left ventricular end-diastolic diameter 5.2, end systolic diameter 3.4, posterior wall thickness 0.7, septal thickness 0.7, left atrium 3.9, aortic root 2.7. SUMMARY: 1. Adequate quality study. 2. Aortic valve is trileaflet and opens normally on 2-dimensional images. Peak instantaneous gradient across the aortic valve is approximately 11 mmHg. There is trace aortic insufficiency. Mitral valve without structural abnormality or Doppler evidence of dysfunction. Tricuspid valve is abnormal with relatively small mobile echodensity suspicious for vegetation of endocarditis with some possible associated torn cord. There is mild to moderate tricuspid regurgitation. Estimated systolic PA pressure by Doppler 65 mmHg suggesting moderate to severe pulmonary hypertension. The pulmonic valve without structural abnormality with mild pulmonic insufficiency. 3. Normal left ventricular dimensions demonstrated. Estimated left ejection fraction appears to be at least 60%. No regional wall motion abnormalities evident. Left atrium, right atrium, and right ventricle normal size with normal right ventricular systolic function. 4. No pericardial effusion. 5. Appearance of inferior vena cava suggests elevated central venous pressure. CONCLUSIONS: 1. Mobile echodensity on tricuspid valve is describe suspicious for vegetation and possible associated torn cord with mild to moderate tricuspid regurgitation and moderate to severe pulmonary hypertension. 2. Normal left ventricular systolic function without wall motion abnormality evident. 3. Appearance of inferior vena cava suggests elevated central venous pressure. cc: MD Agustín Morocho MD Emerald V. Screws, MD
[2016-09-30] MEDS: PERICOLACE PO SCH (21:18)
[2016-09-30] MEDS: MOTRIN PO PRN (21:18)
[2016-09-30] MEDS: AMBIEN PO PRN (21:19)
--- NOTE | 2016-09-30 22:09 | OB/GYN PROGRESS NOTE ---
Progress Note OB - . Patient Problems: Current Active Problems Problem Status Onset Status post emergency section Acute No care in current Acute Hx of drug abuse Acute Intrauterine Acute OB Progress Note: Vital Signs - 24 hr 09/29/16 22:50 09/30/16 00:00 09/30/16 01:39 Temperature 102.9 F H 99.9 F H Pulse Rate 56 L 90 Respiratory Rate 16 20 Blood Pressure 121/75 O2 Sat by Pulse Oximetry 99 92 L 09/30/16 04:05 09/30/16 08:40 09/30/16 12:30 Temperature Pulse Rate 94 H 98 H 98 H Respiratory Rate 16 20 18 Blood Pressure O2 Sat by Pulse Oximetry 96 89 L 82 L 09/30/16 14:00 09/30/16 16:06 09/30/16 19:46 Temperature 98.2 F Pulse Rate 101 H 101 H 102 H Respiratory Rate 18 20 16 Blood Pressure 114/68 O2 Sat by Pulse Oximetry 92 L 92 L 92 L 09/29/16 11:50 - Final Blood Laboratory Results - last 24 hr 09/29/16 09/30/16 09/30/16 09:07 07:20 07:20 WBC RBC Hgb Hct MCV MCH MCHC RDW Std Deviation Plt Count MPV Immature Gran % (Auto) Neut % (Auto) Lymph % (Auto) [place] % (Auto) Eos % (Auto) Baso % (Auto) Immature Gran # (Auto) Neut # (Auto) Lymph # (Auto) [place] # (Auto) Eos # (Auto) Baso # (Auto) Sodium 140 Potassium 3.8 Chloride 103 Carbon Dioxide 23 L Anion Gap 14 BUN 9 Creatinine 0.5 Estimated GFR/1.73 m2 > 60 BUN/Creatinine Ratio 18 Glucose 97 Calculated Osmolality 278 Calcium 7.7 L Random Vancomycin 8.50 Crossmatch See Detail 09/30/16 07:20 WBC 14.86 H RBC 3.74 L Hgb 10.5 L D Hct 31.3 L D MCV 83.7 MCH 28.1 MCHC 33.5 RDW Std Deviation 15.0 H Plt Count 89 L MPV 11.1 H Immature Gran % (Auto) 1.2 H Neut % (Auto) 84.8 H Lymph % (Auto) 8.6 L Florence % (Auto) 5.2 Eos % (Auto) 0.1 Baso % (Auto) 0.1 Immature Gran # (Auto) 0.18 H Neut # (Auto) 12.58 H Lymph # (Auto) 1.28 [place] # (Auto) 0.78 H Eos # (Auto) 0.02 Baso # (Auto) 0.02 Sodium Potassium Chloride Carbon Dioxide Anion Gap BUN Creatinine Estimated GFR/1.73 m2 BUN/Creatinine Ratio Glucose Calculated Osmolality Calcium Random Vancomycin Crossmatch Patient is without complaint. Reports she wants the steri strips on the right of incision changed. Gen: NAD, alert Abd: soft, appropriately tender, fundus firm and 2 finger breadth below umbilicus, incision clean dry and intact with steri strips in place Pelvis: minimal lochia Ext: 1+ edema bilaterally A/P: 30yo who is POD#4 s/p urgent Repeat high transverse , hemorrhage s/p 2 units of pRBCs, anemia with an additional 2 units of pRBCs, h/o substance abuse, no care, febrile morbidity, tachycardia , positive blood cultures for MRSA, pneumonia, atelectasis, positive urine cultures, possible endocarditis -steri strips given to nurse to replace on right edge of incision -continue to follow recommendations per Hospitalist and ID Dispo: remain hospitalized per Hospitalist and ID Nayeli Joyner MD IRON WORK[employer]
[2016-10-01] MEDS: DUONEB (A & A) INH SCH ×6 (04:12→22:59)
[2016-10-01] MEDS ORDERED: LASIX IV ONE (05:15)
[2016-10-01] MEDS: LASIX IV SCH (05:42)
[2016-10-01] MEDS: NORCO-10 PO PRN ×3 (06:30→19:56)
[2016-10-01 08:32] LABS: MANUAL DIFF NEEDED? NO
[2016-10-01] MEDS: SUBUTEX SL SCH ×3 (08:33→23:56)
[2016-10-01] MEDS: FERROUS SULFATE PO SCH ×3 (08:33→23:55)
[2016-10-01] MEDS: MYLICON PO SCH ×5 (08:33→23:56)
[2016-10-01] MEDS: NICODERM PATCH TD SCH (08:33)
[2016-10-01] MEDS: VANCOMYCIN 1,500 MG in NS 250 ML IV SCH (08:34)
[2016-10-01 08:44] LABS: BASO% 0.1 % (0.0-0.8); EOS# 0.16 X1000 (0.0-0.7); EOS% 1.1 % (0.0-10.0); HEMATOCRIT 34.1 % (37.0-47.0); HEMOGLOBIN 11.2 g/dL (12.0-16.0); IMM GRAN# 0.11 X1000 (0.0-0.04); IMM GRAN% 0.8 % (0.0-0.5); LYMPH# 1.24 X1000 (1.2-3.4); LYMPH% 8.7 % (20.5-51.1); MCH 27.6 PG (27-31); MCHC 32.8 g/dL (33-37); MONO# 0.69 X1000 (0.11-0.59); MONO% 4.8 % (1.7-9.3); NEUT% 84.5 % (42.2-75.2); PLT 152 X1000 (130-400); RBC 4.06 XMIL (4.2-5.4)
--- NOTE | 2016-10-01 08:44 | Diag Imaging Result Doc PS360 ---
EXAM: CT THORAX W/CONTRAST HISTORY: pneumonia TECHNIQUE: Dose reduction protocol COMPARISON: None. FINDINGS: There are small bilateral pleural effusions measuring just under 1.5 cm posteriorly and inferiorly in the midline. The heart is not enlarged. There are dense multifocal bilateral nodular infiltrates. A tiny amount of cavitation is found within several of these. There is also a small amount of basilar atelectasis. Mildly prominent mediastinal and hilar lymph nodes in addition to calcified right hilar lymph nodes and a granuloma in the right lower lobe. IMPRESSION: Dense multifocal bilateral nodular infiltrates with cavitation. Electronically signed by Justin San 10/01/2016 8:41 AM
[2016-10-01 08:52] LABS: AGAP 15; BUN 13 mg/dL (8-22); CALCIUM 8.8 mg/dL (8.8-10.2); CHLORIDE 99 mmol/L (98-107); COSMO 275; POTASSIUM 3.5 mmol/L (3.5-5.1); SODIUM 138 mmol/L (136-145); TCO2 24 mmol/L (25-35)
[2016-10-01] MEDS ORDERED: GENTAMICIN IV PER PHARMACY MISC SCH (16:15)
[2016-10-01] MEDS ORDERED: GENTAMICIN IV SCH (17:00)
[2016-10-01] MEDS ORDERED: NS IV SCH (17:00)
--- NOTE | 2016-10-01 17:24 | PROGRESS NOTE ---
DATE: 10/01/2016 SUBJECTIVE: Patient has no focal complaints except for just kind of some shortness of breath intermittently, abdominal cramping. OBJECTIVE: Vital signs: Blood pressure 104/60, heart rate 11/04/2016, respiratory rate 18, temperature 99 degrees, temperature maximum 102.9, but that was last midnight. Cardiovascular: Regular rate and rhythm. Pulmonary: Diffuse rhonchi. GI: Soft, nontender, nondistended. Bowel sounds are positive. LABORATORY DATA: White count down to 14, hemoglobin and hematocrit 11 and 34, platelets 152,000. Chemistries look okay. Last set of blood cultures is positive. PROBLEM LIST: 1. Tricuspid valve endocarditis. [place] valve methicillin-resistant Staphylococcus aureus associated with IV drug use. We will continue vancomycin. At this point, her bloodstream is not clear of bacteria. I attempted to add gentamicin to her mix just to aid in clearance. I think I am going to go ahead and do that just because she has got a high-grade bacteremia, tricuspid endocarditis. She also has evidence of septic embolization and cavitary pneumonia now. 2. Cavitary pneumonia presumably due to Staphylococcus. We will do the gold test. In any case, I really think this is cavitary pneumonia secondary to tricuspid endocarditis, septic embolization. We will continue treatment and follow. 3. Methicillin-resistant Staphylococcus aureus urinary tract infection which is again probably secondary to her embolization. 4. Status post section. Monitor per [employer]CHANICAL LEAD as far as the care. 5. Disposition. She will need 6 weeks of IV antibiotics. I am not really sure if this is going to be a good idea to pursue home IV therapy because I am suspicious she is going to be high risk for abusing her PICC line. She wants to go home "to see her children", but unclear that she actually has custody of her children and I am not sure if the current child she just had will be released back to her care, so we will have to follow closely. cc: MD Nayeli Calabrese MD
[2016-10-01] MEDS: DULCOLAX PR PRN (18:25)
[2016-10-01] MEDS ORDERED: TUBERSOL ID ONE (19:03)
[2016-10-01] MEDS: VANCOMYCIN 1,200 MG in NS 250 ML IV SCH (19:55)
[2016-10-01] MEDS: AMBIEN PO PRN (19:56)
[2016-10-01] MEDS: PERICOLACE PO SCH ×2 (19:56→23:56)
--- NOTE | 2016-10-02 00:18 | OB/GYN PROGRESS NOTE ---
Progress Note OB - . Patient Problems: Current Active Problems Problem Status Onset Status post emergency section Acute No care in current Acute Hx of drug abuse Acute Intrauterine Acute OB Progress Note: Vital Signs - 24 hr 10/01/16 06:00 10/01/16 08:28 10/01/16 11:30 Temperature 99.0 F Pulse Rate 118 H 112 H 106 H Respiratory Rate 18 20 19 Blood Pressure 128/69 O2 Sat by Pulse Oximetry 99 86 L 94 L 10/01/16 13:08 10/01/16 16:00 10/01/16 19:50 Temperature 99.0 F Pulse Rate 117 H 104 H 100 H Respiratory Rate 18 20 16 Blood Pressure 104/60 O2 Sat by Pulse Oximetry 92 L 94 L 92 L 10/01/16 22:00 Temperature 99.2 F Pulse Rate 86 Respiratory Rate 18 Blood Pressure 141/90 O2 Sat by Pulse Oximetry 98 Laboratory Results - last 24 hr 10/01/16 10/01/16 08:10 08:10 WBC 14.24 H RBC 4.06 L Hgb 11.2 L Hct 34.1 L MCV 84.0 MCH 27.6 MCHC 32.8 L RDW Std Deviation 15.3 H Plt Count 152 D MPV 12.0 H Immature Gran % (Auto) 0.8 H Neut % (Auto) 84.5 H Lymph % (Auto) 8.7 L [place] % (Auto) 4.8 Eos % (Auto) 1.1 Baso % (Auto) 0.1 Immature Gran # (Auto) 0.11 H Neut # (Auto) 12.02 H Lymph # (Auto) 1.24 [place] # (Auto) 0.69 H Eos # (Auto) 0.16 Baso # (Auto) 0.02 Sodium 138 Potassium 3.5 Chloride 99 Carbon Dioxide 24 L Anion Gap 15 BUN 13 Creatinine 0.6 Estimated GFR/1.73 m2 > 60 BUN/Creatinine Ratio 22 Glucose 84 Calculated Osmolality 275 Calcium 8.8 Called by nurse stating that patient had drainage on incision and that the skin was . Patient's partner stated that he placed tape over the incision Gen: NAD, alert Abd: soft, appropriately tender, fundus firm and 2 finger breadth below umbilicus, incision with 2cm skin separation on the right edge, no erythema, no induration, no drainage or pus noted, no signs of infection Pelvis: minimal lochia Ext: 1+ edema bilaterally A/P: 30yo who is POD#5 s/p urgent Repeat high transverse , hemorrhage s/p 2 units of pRBCs, anemia with an additional 2 units of pRBCs, h/o substance abuse, no care, febrile morbidity, tachycardia , bacteremia with MRSA, pneumonia, atelectasis, positive urine cultures, tricuspid valve endocarditis, skin separation of incision -steri strips removed. incision cleaned with normal saline. steri strips reapplied followed by pressure dressing -Patient and partner instructed not to touch the incision. Patient is not to pick at incision. Patient is not to pull on abdomen in order to look at incision as this pulls the skin apart. Discussed wound healing will be slow due to bacteremia. -continue to follow recommendations per Hospitalist and ID Dispo: remain hospitalized per Hospitalist and ID Nayeli Joyner MD BULL WHEEL WORKER
[2016-10-02] MEDS: NORCO-10 PO PRN ×5 (02:00→22:30)
[2016-10-02] MEDS: MYLICON PO PRN (02:01)
[2016-10-02] MEDS: DUONEB (A & A) INH SCH ×6 (03:42→23:27)
--- NOTE | 2016-10-02 06:14 | PROGRESS NOTE ---
DATE: 10/02/2016 The patient continues to have positive blood cultures as noted by Dr. Raymundo. I think another agent should be added to the vancomycin but I would prefer to add rifampin rather than gentamicin because the combination of gentamicin and vancomycin is terribly nephrotoxic whereas rifampin does not cause nephrotoxicity, although it can cause elevated liver function tests. I will be sending the patient's isolette off for testing against rifampin also. cc: MD Nayeli Davidson MD
[2016-10-02 06:51] LABS: HEMATOCRIT 33.1 % (37.0-47.0); HEMOGLOBIN 10.5 g/dL (12.0-16.0); MCH 27.1 PG (27-31); MCHC 31.7 g/dL (33-37); MCV 85.3 FL (81-99); RBC 3.88 XMIL (4.2-5.4)
[2016-10-02 07:12] LABS: AGAP 14; BUN 10 mg/dL (8-22); CALCIUM 8.5 mg/dL (8.8-10.2); CHLORIDE 99 mmol/L (98-107); COSMO 274; SODIUM 138 mmol/L (136-145); TCO2 25 mmol/L (25-35)
[2016-10-02 07:16] LABS: INR 1.04 (0.86-1.15); PROTIME 13.9 Seconds (12.1-15.5)
[2016-10-02] MEDS ORDERED: RIFAMPIN PO SCH (08:00)
[2016-10-02] MEDS: MYLICON PO SCH ×4 (09:14→20:34)
[2016-10-02] MEDS: FERROUS SULFATE PO SCH ×2 (09:14→20:34)
[2016-10-02] MEDS: VANCOMYCIN 1,200 MG in NS 250 ML IV SCH ×2 (09:14→20:34)
[2016-10-02] MEDS: NICODERM PATCH TD SCH (09:14)
[2016-10-02] MEDS: SUBUTEX SL SCH ×2 (09:14→20:34)
[2016-10-02] MEDS: MOTRIN PO PRN ×2 (09:14→20:55)
[2016-10-02] MEDS: RIFAMPIN PO SCH (11:15)
--- NOTE | 2016-10-02 15:31 | PROGRESS NOTE ---
DATE: 10/02/2016 SUBJECTIVE: The patient has no complaints. She looks a little bit better today. OBJECTIVE: Vital Signs: Blood pressure 124/67, heart rate of 85, respiratory rate 20, temperature 98.2 degrees, 101.6 temperature. Cardiovascular: Regular rate and rhythm. Pulmonary: Bilateral breath sounds. Clear to auscultation. Gastrointestinal: Soft, nontender, nondistended. Bowel sounds were positive. Extremities: No clubbing or cyanosis. Lymphatics: No peripheral edema. Neurological: Nonfocal. LABORATORY DATA: Blood cultures from yesterday are still positive. As described. White count 13.5, hemoglobin and hematocrit 10 and 33, platelets 174,000. Again, the last set of blood cultures is positive for MRSA, which has been positive this whole time. Interestingly enough, there are 2 different resistance patterns. Urine culture slightly different than the blood, but the blood is all consistent. ASSESSMENT AND PLAN: 1. MRSA, tricuspid valve endocarditis. She is still bacteremic. I added gentamicin yesterday. That may have been discontinued. I think Dr. Baldwin has put her on rifampin, and explained to her about possible side effects. She is still persistently febrile and persistently bacteremic, so I am holding on her PICC line for right now because she is still bacteremic. 2. Cavitary pneumonia, presumably due to Staphylococcus. We will continue similar antibiotics. She is on vancomycin and not rifampin. 3. MRSA urinary tract infection, which is actually likely secondary. Still waiting on getting that situated. DISPOSITION: Pending her resolution of her multiple issues. We will continue to follow. cc: MD Nayeli Calabrese MD
[2016-10-02] MEDS: AMBIEN PO PRN (20:34)
[2016-10-02] MEDS: PERICOLACE PO SCH (20:34)
[2016-10-03] MEDS ORDERED: MAALOX PLUS LIQUID PO PRN (00:33)
[2016-10-03] MEDS: NORCO-10 PO PRN ×2 (04:23→09:34)
[2016-10-03] MEDS: DUONEB (A & A) INH SCH ×5 (04:27→19:43)
[2016-10-03] MEDS: RIFAMPIN PO SCH (08:00)
[2016-10-03] MEDS: NICODERM PATCH TD SCH (08:00)
[2016-10-03] MEDS: FERROUS SULFATE PO SCH ×2 (08:01→20:45)
[2016-10-03] MEDS: MYLICON PO SCH ×4 (08:01→20:45)
[2016-10-03] MEDS: SUBUTEX SL SCH ×2 (08:01→20:45)
[2016-10-03 08:03] LABS: AGAP 14; BUN 11 mg/dL (8-22); CALCIUM 8.1 mg/dL (8.8-10.2); CHLORIDE 99 mmol/L (98-107); COSMO 271; POTASSIUM 3.5 mmol/L (3.5-5.1); SODIUM 136 mmol/L (136-145); TCO2 24 mmol/L (25-35)
[2016-10-03 08:08] LABS: HEMATOCRIT 30.6 % (37.0-47.0); MCH 28.2 PG (27-31); MCHC 32.7 g/dL (33-37); MCV 86.4 FL (81-99); MPV 10.9 FL (7.4-10.4); RBC 3.54 XMIL (4.2-5.4)
[2016-10-03] MEDS: MOTRIN PO PRN ×2 (11:45→17:18)
[2016-10-03] MEDS: NORCO-5 PO PRN ×3 (14:39→22:29)
--- NOTE | 2016-10-03 15:03 | PROGRESS NOTE ---
DATE: 10/03/2016 SUBJECTIVE: Patient has no focal complaints. She is complaining of hemoptysis, but she has had that for the last several days. OBJECTIVE: Vital signs: Blood pressure 107/51, heart rate of 87, respiratory rate of 16, temperature 98.4 degrees, 98% on room air, but did drop to 91% earlier today. General: As described. Cardiovascular: Regular rate and rhythm. Pulmonary: Bilateral breath sounds. Clear to auscultation. GI: Soft, nontender, nondistended. Bowel sounds are positive. LABORATORY STUDIES: White count up to 16. Hemoglobin and hematocrit of 10 and 30. Platelets of 208,000. Chemistries are unremarkable. Repeat blood culture from the is still positive for MRSA. That will make 6 positive blood cultures. We are waiting on her QuantiFERON test tomorrow because of her hemoptysis, although I think this is just from cavitary pneumonia. PROBLEM LIST: 1. Tricuspid valve endocarditis, positive for methicillin-resistant Staphylococcus aureus associated with IV drug use. She is on vancomycin and rifampin per Dr. Baldwin' recommendations. There is concern with aminoglycoside that it will be too nephrotoxic. Kidney function thus far is stable, but she still has a very high-grade bacteremia. Plan is to pursue PEG just visualize other valves, make sure there are no issues. 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 2. Cavitary pneumonia presumably also associated with methicillin-resistant Staphylococcus aureus. Continue empiric antibiotics. She is on breathing treatments. We will continue to follow. 3. Methicillin-resistant Staphylococcus aureus urinary tract infection. Continue antibiotics and follow. 4. Disposition. Plan will be probably for home IV antibiotic. She is high risk because of her IV drug use, but we will continue to follow. cc: MD Nayeli Calabrese MD
[2016-10-03] MEDS: MIRALAX PO SCH (17:18)
--- NOTE | 2016-10-03 18:01 | CONSULTATION ---
DATE OF CONSULTATION: 10/03/2016 INDICATION FOR THE CONSULTATION: Possible tricuspid endocarditis. HISTORY OF PRESENT ILLNESS: Ms. Kirk is a 30-year-old white female who was admitted on 09/26/2016 for of her 4th baby. She apparently did well during the procedure but had elevated white cell count and a reduced O2 saturation and a temperature of a 100.3 degrees. She subsequently underwent CT scanning as well as an echocardiograms. CT scan suggested cavitary lesions and echo suggested tricuspid valve endocarditis. We are referred for evaluation of possible PEG. PAST MEDICAL HISTORY: Significant for preeclampsia with 1 . Otherwise no medical history. SOCIAL HISTORY: She is a 1-2 pack per day smoker and has been so since 14 years old. No alcohol use. She reportedly say she has not used illicit drugs in the last roughly 8-9 months but there is some question about this. FAMILY HISTORY: Significant for lung cancer in both grandparents. PHYSICAL EXAMINATION: Vital Signs: She was last febrile on the th to 101.6. Heart rate 85, blood pressure of 130/81. General: No acute distress. HEENT: Oropharynx is moist. She has very poor dentition. On eye examination, pink conjunctivae. White sclerae. Neck: Examination shows no obvious thyromegaly or thyroid tenderness. Cardiovascular: She sounds to be in a regular rate and rhythm with no obvious murmurs. She has no S3. She has no lower extremity edema. Chest: Clear to auscultation bilaterally. She has no increased work of breathing. Abdomen: Soft, nontender, nondistended. No obvious organomegaly. Skin Exam: Warm and dry throughout any rashes. Neurological: Moving all extremities well. Cranial nerves II through XII are intact without any sensation deficits. Psychiatric: Alert, oriented, pleasant. She has normal mood and affect. PERTINENT DATA: Chest CT as listed above. Echocardiogram suggested mobile echodensity on the tricuspid valve suspicious for vegetation with possible associated torn cord. She has mild to moderate TR with moderate to severe pulmonary hypertension with a measured pressure of 65 mmHg. Normal LV systolic function was noted. Her laboratory data shows a white count is 16.1, hematocrit 30.6, platelet count 208,000. Sodium 136, potassium 3.5, BUN 11, creatinine 0.5. ASSESSMENT: 1. 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 2. Polysubstance abuse. PLAN: Risks, benefits, and alternatives of transesophageal echocardiogram were explained to the patient appeared. It will be reasonable to proceed to evaluate her other valve structures as well as to further evaluate the tricuspid valve. We will likely transfer her over in the morning for the procedure. cc: MD Nayeli Walker MD
[2016-10-03] MEDS: VANCOMYCIN 1 GM/NS 1 GM/250 ML IVPB IV SCH (18:45)
--- NOTE | 2016-10-03 19:41 | OB/GYN PROGRESS NOTE ---
Progress Note OB - . Patient Problems: Current Active Problems Problem Status Onset Endocarditis of tricuspid valve Acute Pneumonia Acute Status post emergency section Acute No care in current Acute Hx of drug abuse Acute Intrauterine Acute OB Progress Note: Vital Signs - 24 hr 10/02/16 19:47 10/02/16 22:00 10/02/16 23:27 Temperature 98.1 F Pulse Rate 89 96 H 91 H Respiratory Rate 16 18 16 Blood Pressure 115/70 O2 Sat by Pulse Oximetry 92 L 94 L 94 L 10/03/16 04:27 10/03/16 06:00 10/03/16 08:14 Temperature 98.4 F Pulse Rate 88 56 L 71 Respiratory Rate 16 18 16 Blood Pressure 107/51 O2 Sat by Pulse Oximetry 96 97 91 L 10/03/16 11:04 10/03/16 14:00 10/03/16 15:47 Temperature 98.5 F Pulse Rate 87 85 85 Respiratory Rate 16 20 20 Blood Pressure 130/81 O2 Sat by Pulse Oximetry 98 94 L 94 L Laboratory Results - last 24 hr 10/03/16 10/03/16 10/03/16 07:45 07:45 07:45 WBC 16.12 H RBC 3.54 L Hgb 10.0 L Hct 30.6 L MCV 86.4 MCH 28.2 MCHC 32.7 L RDW Std Deviation 15.1 H Plt Count 208 MPV 10.9 H Sodium 136 Potassium 3.5 Chloride 99 Carbon Dioxide 24 L Anion Gap 14 BUN 11 Creatinine 0.5 Estimated GFR/1.73 m2 > 60 BUN/Creatinine Ratio 22 Glucose 90 Calculated Osmolality 271 Calcium 8.1 L Random Vancomycin 20.20 Patient states that she wants to shower. She hasn't felt any pulling on her incision. She feels bloated. Gen: NAD, alert Abd: soft, nontender, fundus firm, incision with 2cm skin separation on the right edge, no erythema, no induration, clear drainage, healthy granulation tissue, no pus noted, no signs of infection Pelvis: minimal lochia Ext: nontender, no edema bilaterally A/P: 30yo who is POD#7 s/p urgent Repeat high transverse , hemorrhage s/p 2 units of pRBCs, anemia with an additional 2 units of pRBCs, h/o substance abuse, no care, febrile morbidity, tachycardia , bacteremia with MRSA, pneumonia, atelectasis, positive urine cultures, tricuspid valve endocarditis, skin separation of incision -incision cleaned and redressed -patient may shower -continue to follow recommendations per Hospitalist and ID Dispo: remain hospitalized per Hospitalist and ID Nayeli Joyner MD GUITAR INSTRUCTOR
[2016-10-03] MEDS: PERICOLACE PO SCH (20:45)
[2016-10-03] MEDS: AMBIEN PO PRN (20:52)
[2016-10-04] MEDS: DUONEB (A & A) INH SCH ×6 (00:12→16:43)
[2016-10-04] MEDS: VANCOMYCIN 1 GM/NS 1 GM/250 ML IVPB IV SCH ×2 (05:23→18:09)
[2016-10-04 06:56] LABS: HEMATOCRIT 33.4 % (37.0-47.0); HEMOGLOBIN 10.5 g/dL (12.0-16.0); MCH 27.2 PG (27-31); MCHC 31.4 g/dL (33-37); MCV 86.5 FL (81-99); MPV 10.8 FL (7.4-10.4); RBC 3.86 XMIL (4.2-5.4)
[2016-10-04 07:06] LABS: AGAP 15; BUN 8 mg/dL (8-22); CALCIUM 8.5 mg/dL (8.8-10.2); CHLORIDE 99 mmol/L (98-107); COSMO 275; POTASSIUM 3.8 mmol/L (3.5-5.1); SODIUM 139 mmol/L (136-145); TCO2 25 mmol/L (25-35)
[2016-10-04] MEDS: FERROUS SULFATE PO SCH ×2 (09:17→14:07)
[2016-10-04] MEDS: RIFAMPIN PO SCH ×2 (09:17→14:08)
[2016-10-04] MEDS: MIRALAX PO SCH (09:18)
[2016-10-04] MEDS: MYLICON PO SCH ×3 (09:18→18:23)
[2016-10-04] MEDS: SUBUTEX SL SCH ×2 (09:20→14:07)
[2016-10-04 10:16] LABS: INR 1.05 (0.86-1.15)
[2016-10-04] MEDS ORDERED: XYLOCAINE 2% VISCOUS ONE (10:25)
[2016-10-04] MEDS ORDERED: SODIUM CHLORIDE 0.9% 20 ML ONE (10:27)
[2016-10-04] MEDS ORDERED: ANESTHESIA PB SET 88 IN 5742 ONE (10:41)
[2016-10-04] MEDS ORDERED: NS 1,000 ML ONE (10:41)
[2016-10-04] MEDS ORDERED: DIPRIVAN 1% ONE (11:55)
[2016-10-04] MEDS ORDERED: VERSED ONE (12:00)
--- NOTE | 2016-10-04 12:17 | ECHO REPORT ---
ORDER DATE: 10/03/2016 PROCEDURE: Transesophageal echocardiogram. INDICATION: Suspected right-sided endocarditis in a patient with multiple pulmonary emboli with MRSA in the blood and a history of drug abuse. DESCRIPTION: After obtaining informed consent the patient was brought to the cardiac botany laboratory assistant. She received intravenous propofol under the supervision of the anesthesia services of [facility]. Her throat was anesthetized with lidocaine and HurriCaine. The esophagus was intubated without difficulty. Multiple views of the cardiac structures were obtained. The left atrium and its appendage are normal. The interatrial septum is normal. Agitated saline was injected and there was no obvious crossing of valves from right to left. The right atrium appeared to be normal. The inferior vena cava was slightly prominent suprahepatically and that appeared to be dilated. The tricuspid valve is abnormal. There is evidence of vegetation or oscillating mass attached to the tricuspid valve which appears to be disrupted in its inferolateral aspect. Color flow mapping reveals a moderately severe degree of regurgitation. The pulmonary pressure appears to be slightly elevated. The right ventricle appears to be normal in function. The pulmonic valve was well visualized and appears to be normal. The aortic valve is normal with three cusps. Color flow mapping is unremarkable. The aortic root is not dilated. The left ventricle is normal in size and function. The mitral valve looks normal. Color flow mapping indicates no significant regurgitation. No vegetation was noted attached to the mitral valve. The ascending thoracic aorta appears to be normal. Some degree of left pleural effusion was noted. SUMMARY: In summary, this transesophageal echocardiogram is positive for the presence of tricuspid valve endocarditis with vegetation noted and disruption of the tricuspid valve with moderately severe degree of regurgitation. The pulmonic, aortic, and mitral valves appear to be unremarkable. The left ventricle is normal in size and function. The patient tolerated the procedure well without any obvious complications. cc: MD Quinn Prieto MD Emerald V. Screws, MD
--- NOTE | 2016-10-04 12:33 | PROGRESS NOTE ---
DATE: 10/04/2016 SUBJECTIVE: Patient has no focal complaints. OBJECTIVE: Vital signs: Blood pressure 127/79, heart rate 109, respiratory rate 18, temperature 98 degrees, 95% on 2 L. Cardiovascular: Regular rate and rhythm. Pulmonary: Bilateral breath sounds. Clear to auscultation. GI: Soft, nontender, nondistended. Bowel sounds are positive. LABORATORY DATA: White count of 14.4, hemoglobin and hematocrit are 10 and 33. BMP was fine. PROBLEM LIST: 1. Tricuspid valve endocarditis. She his on vancomycin and rifampin with persistent positive blood cultures. Her repeat blood cultures were drawn this morning so I do not have those yet. Hopefully they will be negative and we can progress towards a PICC line and disposition. 2. Methicillin-resistant Staphylococcus aureus cavitary pneumonia. Continue IV antibiotics. 3. Methicillin-resistant Staphylococcus aureus urinary tract infection. She is doing okay but her pH is down a little bit too. 4. Disposition. Pending multiple issues. cc: MD Nayeli Calabrese MD
[2016-10-04] MEDS ORDERED: XYLOCAINE-MPF 2% ONE (12:59)
[2016-10-04] MEDS: NORCO-5 PO PRN ×2 (13:55→18:09)
[2016-10-04] MEDS: MOTRIN PO PRN (13:56)
[2016-10-04] MEDS: NICODERM PATCH TD SCH (14:08)
[2016-10-04 18:50] VITALS: BP 132/82
--- NOTE | 2016-10-04 22:38 | OB/GYN PROGRESS NOTE ---
Progress Note OB - . OB Progress Note: Vital Signs - 24 hr 10/04/16 06:00 10/04/16 07:11 10/04/16 08:11 Temperature 98.7 F 99.7 F H Pulse Rate 76 85 79 Respiratory Rate 18 18 20 Blood Pressure 134/77 111/74 O2 Sat by Pulse Oximetry 95 92 L 10/04/16 11:12 10/04/16 12:30 10/04/16 12:45 Temperature 98 F 99.2 F Pulse Rate 109 H 76 78 Respiratory Rate 18 18 18 Blood Pressure 127/79 147/83 140/80 O2 Sat by Pulse Oximetry 95 96 96 10/04/16 13:00 10/04/16 13:20 10/04/16 13:30 Temperature 100.2 F H 100.7 F H Pulse Rate 78 78 79 Respiratory Rate 18 16 18 Blood Pressure 136/72 148/80 141/82 O2 Sat by Pulse Oximetry 96 94 L 90 L 10/04/16 14:00 10/04/16 14:27 10/04/16 14:56 Temperature 100 F H 99.6 F 99.2 F Pulse Rate 78 78 76 Respiratory Rate 18 18 18 Blood Pressure 140/76 150/92 136/72 O2 Sat by Pulse Oximetry 97 97 97 10/04/16 15:30 10/04/16 16:15 10/04/16 16:16 Temperature 100.2 F H 98.8 F Pulse Rate 76 76 78 Respiratory Rate 18 18 18 Blood Pressure 140/76 136/86 O2 Sat by Pulse Oximetry 93 L 98 95 10/04/16 17:22 10/04/16 18:00 10/04/16 18:49 Temperature 99.2 F 98.6 F 98.4 F Pulse Rate 76 76 76 Respiratory Rate 18 18 18 Blood Pressure 140/80 136/82 132/82 O2 Sat by Pulse Oximetry 95 96 97 10/01/16 08:10 - Final Blood Blood Culture - Final Staphylococcus Aureus Laboratory Results - last 24 hr 10/02/16 10/04/16 10/04/16 06:15 06:00 06:00 WBC 14.64 H RBC 3.86 L Hgb 10.5 L Hct 33.4 L MCV 86.5 MCH 27.2 MCHC 31.4 L RDW Std Deviation 15.0 H Plt Count 272 D MPV 10.8 H PT INR Sodium 139 Potassium 3.8 Chloride 99 Carbon Dioxide 25 Anion Gap 15 BUN 8 Creatinine 0.5 Estimated GFR/1.73 m2 > 60 BUN/Creatinine Ratio 16 Glucose 89 Calculated Osmolality 275 Calcium 8.5 L TB Test (QFT) SEE COMMENTS 10/04/16 09:12 WBC RBC Hgb Hct MCV MCH MCHC RDW Std Deviation Plt Count MPV PT 14.0 INR 1.05 Sodium Potassium Chloride Carbon Dioxide Anion Gap BUN Creatinine Estimated GFR/1.73 m2 BUN/Creatinine Ratio Glucose Calculated Osmolality Calcium TB Test (QFT) Informed by Dr. Raymundo as well as nurse that patient wanted to leave AMA. Spoke over the phone with patient regarding the risks of her leaving and pleaded with her to stay. Asked patient would she stay at least until blood cultures were negative but she refused. I told patient that I would come to the hospital to see her. She stated that she probably wouldn't be there when I arrived. Upon arrival to the hospital, nurse told me that patient had signed out AMA. -Nayeli Joyner, LABORATORY AP[employer] BLOWER
--- NOTE | 2016-11-07 21:13 | DISCHARGE SUMMARY ---
ADMISSION DATE: 09/26/2016 DISCHARGE DATE: 10/04/2016 PROCEDURE: Repeat high transverse section with a T-incision. ADMISSION DIAGNOSES: 1. 30-year-old, G4, P3-0-0-3 with reported unsure gestation of 37 weeks and 3 days versus 35 weeks and 3 days. 2. No care. 3. History of drug abuse. 4. labor. 5. Vaginal bleeding likely due to abruption. 6. Nonreassuring heart tracing. 7. Prior section x3. DISCHARGE DIAGNOSES: 1. 30-year-old, G4, P3-0-0-3 at likely gestation of 32 weeks status post repeat high transverse section with T-incision. 2. No care. 3. History of drug abuse. 4. labor. 5. Vaginal bleeding likely due to abruption. 6. Nonreassuring heart tracing. 7. Prior section x3. 8. hemorrhage status post 4 units of packed red blood cells. 9. Anemia. 10. Febrile morbidity. 11. Tachycardia. 12. Positive blood cultures for methicillin-resistant Staphylococcus aureus. 13. Pneumonia. 14. Atelectasis. 15. Positive urine cultures. 16. Endocarditis. SURGEON: Dr. Nayeli Joyner. HOSPITAL COURSE: This 30-year-old, G4, P3-0-0-3 at unknown gestation which was likely 32 weeks of gestation presented to labor and delivery with vaginal bleeding and nonreassuring tracing and labor. Decision was made to proceed with an emergent repeat section. Patient underwent an uncomplicated repeat high transverse with a T-incision. Patient's hospital course was complicated by febrile morbidity, anemia, history of substance abuse, tachycardia, bacteremia with MRSA, pneumonia, atelectasis, positive urine cultures, positive blood cultures, tricuspid valve endocarditis, skin separation of incision. Patient was treated with antibiotics by the hospitalist as well as the Infectious Disease team. The patient had several blood cultures which were drawn showing positive for MRSA. However patient was not willing to remain in the hospital for continued treatment. Patient was unable to receive antibiotic treatment at home due to risks of having a PICC line with h/o substance abuse. Postop day #8 patient decided that she no longer wanted to stay in the hospital and decided that she wanted to sign out AMA. The hospitalist spoke with her and discussed the risks of mortality with leaving the hospital with positive MRSA cultures and letting her know that she could without treatment. The patient stated that she still wanted to sign out AMA. I spoke with the patient on the day she decided to leave and tried to encourage her to stay. I pleaded with her to stay however she refused and the patient signed out AMA on postop day #8. A full discharge was not given to the patient due to her leaving AMA and discharge was handled per hospital protocol. cc: MD SAUL Meyers
== END 2016-10-04 19:10 | disposition left against medical advice (07) ==
LOC: P.NBC 00:20 → P.LD 00:27 → P.WC 15:51 → P.MEDSURG 09-29 11:06
PROVIDERS: ADMIT Student in an Organized Health Care Education/Training Program; ATTEND Student in an Organized Health Care Education/Training Program

== ENCOUNTER 2016-10-14 | Inpatient (IN) ==
[2016-10-14] MEDS ORDERED: ASPIRIN PO STA (00:19)
--- NOTE | 2016-10-14 00:33 | EKG Report ---
Test Performed on : 10/14/2016 00:31:47 AM Test Reason : CHEST PAIN Blood Pressure : / mmHG Vent. Rate : 119 BPM Atrial Rate : 119 BPM P-R Int : 136 ms QRS Dur : 072 ms QT Int : 310 ms P-R-T Axes : 063 030 -10 degrees QTc Int : 436 ms Sinus tachycardia. Possible Left atrial enlargement Low voltage QRS Nonspecific ST and T wave abnormality Abnormal ECG When compared with ECG of 28-SEP-2016 06:38, Inverted T waves have replaced nonspecific T wave abnormality in Inferior leads Inverted T waves have replaced nonspecific T wave abnormality in Lateral leads Unconfirmed Result
[2016-10-14 00:52] LABS: BASO% 0.1 % (0.0-0.8); EOS# 0.04 X1000 (0.0-0.7); EOS% 0.3 % (0.0-10.0); HEMATOCRIT 28.5 % (37.0-47.0); HEMOGLOBIN 9.1 g/dL (12.0-16.0); IMM GRAN# 0.05 X1000 (0.0-0.04); IMM GRAN% 0.4 % (0.0-0.5); LYMPH# 0.85 X1000 (1.2-3.4); LYMPH% 6.5 % (20.5-51.1); MANUAL DIFF NEEDED? NO; MCH 27.2 PG (27-31); MCHC 31.9 g/dL (33-37); MCV 85.1 FL (81-99); MONO# 0.49 X1000 (0.11-0.59); MONO% 3.7 % (1.7-9.3); MPV 9.3 FL (7.4-10.4); PLT 311 X1000 (130-400); RBC 3.35 XMIL (4.2-5.4)
[2016-10-14 01:12] LABS: INR 1.28 (0.86-1.15); PROTIME 16.3 Seconds (12.1-15.5)
[2016-10-14 01:13] LABS: PTT PL 42.1 Seconds (22.6-43.9)
[2016-10-14 01:48] LABS: AGAP 19; ALBUMIN 2.4 g/dL (3.5-5.0); ALKALINE PHOSPHATASE 182 U/L (32-104); BUN 13 mg/dL (8-22); CHLORIDE 96 mmol/L (98-107); CK PROFILE 12 U/L (24-173); COSMO 267; GOT 10 U/L (10-30); GPT < 5 U/L (10-36); MAGNESIUM 1.6 mg/dL (1.5-2.7); POTASSIUM 2.7 mmol/L (3.5-5.1); SODIUM 133 mmol/L (136-145); TCO2 18 mmol/L (25-35); TOTAL PROTEIN 7.4 g/dL (6.3-8.3)
[2016-10-14] MEDS ORDERED: KLOR-CON PO ONE (02:00)
[2016-10-14] MEDS ORDERED: VANCOMYCIN 1 GM/NS 1 GM/250 ML IVPB IV ONE (02:14)
[2016-10-14] MEDS ORDERED: MORPHINE IV PRN ×2 (02:15→07:27)
[2016-10-14] MEDS ORDERED: ZOFRAN IV PRN (02:15)
[2016-10-14] MEDS ORDERED: NS 1,000 ML IV ONE (02:15)
--- NOTE | 2016-10-14 02:27 | PROVIDER DOCUMENTATION ---
This chart was entered by Gage Rabago Scribe, acting as scribe for Rudolph Vargas DO. HPI-General Adult - General Chief Complaint: General Adult Stated Complaint: "MERSA" Time Seen by Provider: 10/14/16 00:15 Source: patient Allergies/Adverse Reactions: Patient Allergies Allergy/AdvReac Type Severity Reaction Status Date / Time No Known Allergies Allergy Verified 10/14/16 00:15 Home Medications: Home Medication List Medication Instructions Recorded Confirmed Last Taken Type Buprenorphine S.l. [Subutex] 1 tab PO BID #60 tablet 09/27/16 10/14/16 Unknown Rx - History of Present Illness -Gen Adult Nature of Presenting Problems: 30 yo F presents to the ER with complaint of having fever. Pt was dx with MRSA by Dr. Paz on September 26 and left against medical advice. Pt states she came back because her fever was getting higher and got scared. Location of Pain/Injury: reports: none Pain Radiation: reports: no radiation Quality of Pain: reports: none Severity: reports: mild Onset/Duration: reports: this afternoon Timing: reports: still present Associated Symptoms: reports: fever/chills Review of Systems - Adult - REVIEW OF SYSTEMS - ADULT Constitutional: reports: fever. denies: chills Cardiovascular: denies: chest pain, palpitations Gastrointestinal: denies: abdominal pain, nausea, vomiting All Other Systems: Reviewed and Negative Past History - Adult - PAST MEDICAL HISTORY-ADULT Review of Records: reports: Old Records Reviewed, Nursing Assessment Review, Medications Reviewed Other Conditions: reports: MRSA - IMMUNIZATION STATUS Childhood Immunizations: See Nurse Assessment Flu Vaccine: See Nurse Assessment Physical Exam-General - PHYSICAL EXAM-ADULT Initial Vital Signs Reviewed: Yes - CONSTITUTIONAL General Appearance: appears well, alert, no apparent distress - EYES Eyes: PERRL/EOMI, pink conjunctivae - RESPIRATORY Respiratory: chest non-tender, lungs clear, normal breath sounds - GASTROINTESTINAL (ABDOMEN) Abdominal Exam: normal bowel sounds, non tender, soft - MUSCULOSKELETAL Extremity: normal range of motion, non-tender - SKIN Integumentary: normal color, normal turgor, warm/dry Progress - PLAN OF CARE/RESULTS Progress/Plan/Lab Results: Vital Signs - 8 hr 10/14/16 00:06 Temperature 98.8 F Pulse Rate 131 H Respiratory Rate 18 Blood Pressure 88/51 O2 Sat by Pulse Oximetry 100 Result Diagrams: 10/14/16 00:33 10/14/16 00:33 - EKG 1 Time of EKG reading by physician:: 00:31 EKG Read and Signed by:: Rudolph Vargas EKG Interpretation (*Must complete 3 of following elements*): Abnormal (non specific ST and T wave abnormalities) Rate: 119 Rhythm: sinus tachycardia [place]: normal QRS: normal Comments: poss L atrial enlargement, low voltage QRS - CONSULTS/PCP/HOSPITALIST Notification #1 *Consult/PCP/Hospitalist*: Hospitalist Time Discussed: 02:15 Reason/Comments: admit Consult Disposition: Admit Departure - Departure Date of Disposition Decision: 10/14/16 Time of Disposition Decision: 02:15 DIAGNOSIS: Staph infection Leukocytosis Qualifiers: Leukocytosis type: unspecified Qualified Code(s): D72.829 - Elevated white blood cell count, unspecified Disposition: ADMITTED INPATIENT 09 Certified Medical Emergency: Emergent Condition: Stable Referrals and Follow-Ups: None,PCP [Primary Care Provider] - - Critical Care Note This patient required my direct & personal management of CC.: No This chart was documented by the indicated scribe, (Gage Rabago Scribe) and accurately reflects the services I performed and decisions made by me, Rudolph Vargas, , as attested by the provider's signature.
[2016-10-14] MEDS ORDERED: VANCOMYCIN IV PER PHARMACY MISC SCH (02:30)
[2016-10-14 02:57] LABS: BE -2.6 mmoll (-3.0-3.0); BLOOD TYPE ARTERIAL; DRAW SITE L RADIAL; METHB 1.4 % (0.0-1.5); O2(CT) 9.3 mL/dL (15.0-23.0); PCO2(98.6) 31 mmHg (35-45); PO2(98.6) 51 mmHg (60-100); SAMPLE BLOOD; SAO2 91.3 % (95.0-100.0); THB 7.6 g/dL (11.5-17.4); pH(98.6) 7.44 (7.35-7.45)
[2016-10-14 03:00] LABS: MODALITY ROOM AIR
[2016-10-14 03:01] LABS: ALLEN TEST YES
--- NOTE | 2016-10-14 05:51 | Diag Imaging Result Doc PS360 ---
EXAM: CHEST-2 VIEWS HISTORY: CP TECHNIQUE: COMPARISON: 09/28/2016 FINDINGS: A moderate-sized left-sided effusion has developed since the prior exam. There is basilar atelectasis and possibly and underlying infiltrate. There is also a small infiltrate in the mid right lung. The heart is not enlarged. The vessels are not distended. No right-sided pleural effusion. IMPRESSION: Bilateral infiltrates in addition to left pleural effusion and basilar atelectasis. Electronically signed by Justin San 10/14/2016 5:49 AM
[2016-10-14] MEDS ORDERED: BLISTEX MEDICATED BERRY LIP BALM TOP PRN (07:46)
[2016-10-14] MEDS: TYLENOL PO PRN ×2 (07:57→20:51)
[2016-10-14] MEDS: NS 1,000 ML IV SCH ×2 (11:40→20:51)
[2016-10-14] MEDS: NICODERM PATCH TD SCH (11:40)
[2016-10-14] MEDS: SUBUTEX SL SCH ×2 (12:57→17:52)
--- NOTE | 2016-10-14 13:38 | HISTORY AND PHYSICAL ---
PRIMARY CARE PHYSICIAN: None. CHIEF COMPLAINT: Fever, chills. HISTORY OF PRESENTING ILLNESS: This is a 30-year-old female who was admitted to this facility on 09/26/2016. During that hospitalization, was diagnosed with a MRSA UTI, an MRSA cavitary pneumonia and a tricuspid valve endocarditis. She left A on 10/04/2016 despite encouragement by her COMPUTER GAME DESIGNER and hospitalist. She now returns to the emergency room with persistent fevers, chills. When she arrived she had a heart rate of 131, a blood pressure of 88/51. This a.m. she had a temperature of 103.1 degrees. She remains tachycardic and septic so she was admitted for further evaluation and treatment. PAST MEDICAL HISTORY: Of an MRSA UTI, MRSA cavitary pneumonia, tricuspid valve endocarditis. PAST SURGICAL HISTORY: x4. She had a section on 09/26/2016 of a 3-pound 12- ounce female who had been transferred to [facility] after delivery due to decreased scores. FAMILY HISTORY: Lung cancer in her grandparents. SOCIAL HISTORY: She currently lives with family. Smokes 1-2 packs of cigarettes a day and has done so since the age of 14. Denied any alcohol use and has a history of polysubstance abuse. HOME MEDICATIONS: She takes Subutex 8 mg 1 sublingually p.o. t.i.d. LABORATORY DATA: Showed a white blood cell count of 13.16, hemoglobin 9.1, hematocrit 28.5, platelets 311,000. PT and INR of 16.3 and 1.28 with a D-dimer of 6.24, pH of 7.44, pCO2 of 31, PO2 51, bicarb 22.8. Sodium of 133, potassium 2.7, chloride 96, CO2 18, BUN of 13, creatinine 1.3, glucose 113, magnesium 1.6, creatine kinase of 12, troponin less than 0.010, proBNP of 4378. Chest x-ray showed an impression of bilateral infiltrates in addition to the left pleural effusion and basilar atelectasis. EKG showed sinus tachycardia at 119. REVIEW OF SYSTEMS: She was positive for subjective fever, chills. Denied blurred vision, dizziness, chest pain, coughing, shortness of breath, abdominal pain, nausea, vomiting, diarrhea, constipation, or burning or hurting with urination. PHYSICAL EXAMINATION: VITAL SIGNS: On arrival, she had a temperature of 98.8 degrees, pulse was 131, respirations 18, blood pressure 88/51, saturating 100% on room air. This a.m. she is noted to have a temperature of 103.1 degrees, pulse 118, blood pressure is up to 105/64 saturating 94% on room air. GENERAL: This is a 30-year-old female who is lying in the bed, answers questions appropriately. HEENT: Normocephalic and atraumatic. Pupils are equal, round, and reactive to light. The extraocular movements are intact. The oropharynx and nares are clear. NECK: Supple. LUNGS: Clear to auscultation bilaterally with equal lung expansion and chest wall movement. HEART: With regular rate and rhythm. No murmurs, rubs, or gallops. ABDOMEN: Soft, nontender, nondistended. Bowel sounds are present x4 quadrants. EXTREMITIES: No clubbing, cyanosis, or edema. NEUROLOGICAL: The cranial nerves 2-12 appear grossly intact. ASSESSMENT: 1. Bilateral pneumonia with sepsis. 2. Acute kidney injury. 3. Hypokalemia. 4. Hypotension. 5. All of the history that she had prior to admission when she left against medical advice which includes an methicillin-resistant Staphylococcus aureus urinary tract infection, an methicillin-resistant Staphylococcus aureus cavitary pneumonia and a tricuspid valve endocarditis. 6. Tobacco abuse. 7. Elevated D-dimer. We did not have a previous D-dimer on her previous admission. PLAN: She was admitted to the medical unit at [facility], placed on telemetry, regular diet. Will consult Infectious Disease Dr. Baldwin. Will also consult cardiology. Will obtain another echocardiogram today per cardiology request. We will continue her at this time on vancomycin per pharmacy protocol and she did receive a dose in the emergency room. Keep her on normal saline at 100 mL an hour. Continue her home medications. Place on a nicotine patch. We will check a CTA of pulmonary arteries today and bilateral lower extremity venous Doppler due to the fact that she left AMA and has continued to smoke and has poor health at this time. We will recheck a CBC and a CMP in the a.m. Dictated by ISA Nino for Tom Carlos MD cc: Doris LitoISA davis MD
--- NOTE | 2016-10-14 14:08 | CONSULTATION ---
DATE OF CONSULTATION: 10/14/2016 DIAGNOSIS: Endocarditis. HISTORY OF PRESENT ILLNESS: Ms. Kinjal Kirk was in the hospital here on 10/03/2016 and underwent a transesophageal echocardiogram which revealed tricuspid valve endocrine endocarditis, vegetations, with a severe degree of regurgitation. She is an IV drug abuser as well as using oral pills. She left and went to see her child in [facility], did not take any medications, and the diagnosis was endocarditis with methicillin-resistant Staphylococcus aureus, cavitary pneumonia, and methicillin-resistant Staphylococcus aureus urinary tract infection. At that time, she was on vancomycin and Rifampicin with persistent positive blood cultures. She came back again with increasing fevers and shortness of breath. She came in and was started on vancomycin. There are no palpitations. There is no syncope. REVIEW OF SYSTEM: A 14-point review of systems was done.Gastrointestinal: There is no history of nausea, vomiting, diarrhea. There is no history of hemoptysis or melena. Central nervous system: No focal weakness to suggest a CVA or TIA. Genitourinary: There is no dysuria or hematuria. PAST MEDICAL HISTORY: Recent diagnosis of methicillin-resistant Staphylococcus aureus infection, pneumonia, and urinary tract infection as well as tricuspid valve vegetation endocarditis. The patient has been noncompliant with medications. SOCIAL HISTORY: IV drug abuse and illicit drug abuse. Smoker of 1-2 packs of cigarettes a day since the age of 14. No alcohol. Does not drink. PHYSICAL EXAMINATION: Vital Signs: Blood pressure 105/64. Cardiovascular System: First and second heart sounds were heard. Jugular sinus pressure mildly elevated. There was systolic murmur. Abdomen: Soft, nontender. There was no guarding or rigidity. Bowel sounds were heard. Central nervous system: Alert, oriented, and was moving all 4 extremities. Extremities: Examination of extremities revealed no pedal edema. Respiratory System: Bibasilar crepitations. LABORATORY EXAMINATION: Revealed a sodium of 133, potassium 2.7, BUN 13, creatinine 1.3. The proBNP was 4378. Hematology: Hemoglobin 13, hematocrit 28, platelet count of 311,000. ASSESSMENT AND PLAN: 1. Ms Kinjal Kirk is a 30-year-old lady who has Methicillin-resistant Staphylococcus aureus endocarditis with pneumonia and urinary tract infection. She was recently diagnosed on 10/04/2016, discharged herself against medical advice, and has come back with increasing fevers. We will get an echocardiogram to reassess cardiac and valvular function. This is ongoing untreated Methicillin-resistant Staphylococcus aureus infection and Dr. Agustín Baldwin has been consulted. 2. She is hypokalemic, which has been treated. We will recommend checking her BMP in the morning. Thank you for the consult. We will follow hospital course. cc: Reno Carpenter MD
--- NOTE | 2016-10-14 15:58 | Extremity Venous Study ---
EXAM: Venous U/S Bilateral Legs HISTORY: elevated ddimer TECHNIQUE: COMPARISON: None. FINDINGS: Right: There is good flow and compressibility of the veins of the right lower extremity. No thrombus. Normal augmentation. Left: There is good flow and compressibility of the veins of the left lower extremity. No thrombus. Normal augmentation. IMPRESSION: No evidence of deep venous thrombosis within either lower extremity. Electronically signed by Justin San 10/14/2016 3:56 PM
[2016-10-14 16:16] LABS: URINE SOURCE CATH
[2016-10-14 16:21] LABS: UR AMPHETAMINES QUAL NONE DETECTED (NONE DETECT); UR BARBITUATES QUAL NONE DETECTED (NONE DETECT); UR BENZODIAZEPIN QUAL NONE DETECTED (NONE DETECT); UR CANNABINOIDS QUAL NONE DETECTED (NONE DETECT); UR COCAINE QUAL NONE DETECTED (NONE DETECT); UR MDMA QUAL NONE DETECTED (NONE DETECT); UR METHADONE QUAL NONE DETECTED (NONE DETECT); UR METHAMPHETAMINE QUAL NONE DETECTED (NONE DETECT); UR OPIATES QUAL NONE DETECTED (NONE DETECT); UR OXYCODONE QUAL NONE DETECTED (NONE DETECT); UR PCP QUAL NONE DETECTED (NONE DETECT); UR TCA QUAL NONE DETECTED (NONE DETECT)
[2016-10-14 17:00] LABS: BILIRUBIN URINE NEGATIVE (NEGATIVE); BLOOD URINE 1+ (NEGATIVE); CLARITY VERY CLOUDY (CLEAR); COLOR YELLOW; GLUCOSE URINE NEGATIVE (NEGATIVE); LEUKOCYTES URINE TRACE (NEGATIVE); NITRITE URINE NEGATIVE (NEGATIVE); PH URINE 6.5; PROTEIN URINE 1+(30 mg/dL) mg/dL (NEGATIVE); SP GRAVITY URINE 1.015; URINE MICROSCOPIC NEEDED? YES; UROBILINOGEN URINE NORMAL
[2016-10-14 17:01] LABS: URINE EPITHELIAL CELLS <10 /HPF (<10); URINE RBC <10 /HPF (<10)
[2016-10-14] MEDS ORDERED: RIFAMPIN PO ONE (20:00)
[2016-10-14] MEDS ORDERED: MAXIPIME 1 GM/D5W 1 GM/50 ML IVPB IV ONE (20:00)
[2016-10-14] MEDS ORDERED: PRILOSEC PO ONE (20:34)
[2016-10-14] MEDS: DIFLUCAN PO SCH (20:51)
[2016-10-15] MEDS: VANCOMYCIN 1 GM/NS 1 GM/250 ML IVPB IV SCH (02:30)
[2016-10-15] MEDS: PRILOSEC PO SCH (06:12)
[2016-10-15] MEDS: NS 1,000 ML IV SCH ×2 (06:12→16:57)
[2016-10-15] MEDS ORDERED: MAXIPIME 1 GM/D5W 1 GM/50 ML IVPB IV SCH (08:00)
[2016-10-15] MEDS: RIFAMPIN PO SCH (08:10)
[2016-10-15] MEDS: MAXIPIME 1 GM in NS 50 ML IV SCH ×2 (08:10→20:32)
[2016-10-15] MEDS: NICODERM PATCH TD SCH (08:10)
[2016-10-15] MEDS: SUBUTEX SL SCH ×3 (08:11→20:32)
[2016-10-15] MEDS: TYLENOL PO PRN (10:11)
--- NOTE | 2016-10-15 13:30 | ECHO REPORT ---
ORDER DATE: 10/14/2016 PROCEDURE: 2D echocardiogram. ECHOCARDIOGRAPHIC MEASUREMENTS: 1. Interventricular septum 0.8. 2. Left ventricular posterior wall 0.8. 3. Diastolic diameter 4.1. 4. Left atrium 4.1. 5. Aorta 2.7. 6. Aortic valve leaflets are trileaflet. Mitral valve was normal. Tricuspid valve revealed a thickened vegetation noted in the tricuspid valve leaflets. There were 2 vegetations noted in the septal leaflet as well. 7. Pulmonic valve was normal. 8. Normal left ventricular cavity size. Estimated ejection fraction of 60%. 9. Doppler studies revealed there is moderate tricuspid regurgitation. Peak velocity across the tricuspid valve was 3.6 m/sec. Pulmonary artery systolic pressure of 61 mmHg. 10. There is no aortic stenosis or regurgitation. There is trace mitral regurgitation. 11. There is a no pericardial effusion. Pleural effusion was noted. cc: MD Doris Rg CRNP
--- NOTE | 2016-10-15 14:26 | PROGRESS NOTE ---
DATE: 10/15/2016 SUBJECTIVE: Patient without complaints this morning. OBJECTIVE: Vital Signs: Temperature 97, respiratory rate 18, blood pressure 118/74, saturating 96% on room air. General: Patient is awake alert, oriented. She is currently in no respiratory distress. Speech is regular. Memory is intact. Neck: Supple. Cardiovascular: Regular rate. Chest: Clear. Abdomen: Soft. Neurologic: Patient is awake, alert, oriented. She is standing up by the bedside waiting to take a shower. LABORATORY DATA: Currently still pending. ASSESSMENT: 1. Leukocytosis. 2. Hyponatremia and hypokalemia. 3. Acute renal failure. 4. Bilateral pneumonia with sepsis. 5. 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 6. Chronic tobacco abuse. 7. Medical noncompliance. As noted, the patient left against medical advice and only came back because her fever started spiking. PLAN: We will continue patient on antibiotics. We will discuss with Dr. Baldwin length of time. Further orders as needed. cc: Tom Carlos MD
[2016-10-15 14:28] LABS: BASO% 0.7 % (0.0-0.8); EOS# 0.49 X1000 (0.0-0.7); EOS% 4.6 % (0.0-10.0); HEMOGLOBIN 7.5 g/dL (12.0-16.0); IMM GRAN% 1.9 % (0.0-0.5); LYMPH# 1.69 X1000 (1.2-3.4); MANUAL DIFF NEEDED? YES; MCH 26.9 PG (27-31); MCHC 31.3 g/dL (33-37); MONO# 0.67 X1000 (0.11-0.59); MONO% 6.3 % (1.7-9.3); MPV 10.4 FL (7.4-10.4); NEUT% 70.5 % (42.2-75.2); PLT 257 X1000 (130-400); RBC 2.79 XMIL (4.2-5.4)
[2016-10-15 14:48] LABS: AGAP 17; BUN 12 mg/dL (8-22); CALCIUM 7.6 mg/dL (8.8-10.2); CHLORIDE 106 mmol/L (98-107); COSMO 281; POTASSIUM 3.5 mmol/L (3.5-5.1); SODIUM 140 mmol/L (136-145); TCO2 17 mmol/L (25-35)
[2016-10-15 14:54] LABS: EOS 5 % (1-10); LYMPHS 16 % (21-51); MONO 6 % (1-9)
--- NOTE | 2016-10-15 15:03 | PROGRESS NOTE ---
DATE: 10/15/2016 PRESENT ILLNESS: The patient has methicillin-resistant Staph aureus tricuspid valve endocarditis. She is bacteremic at this time. She also has most likely a bilateral pneumonia , but it could be there could be a component of vascular congestion also. The pneumonia most likely would be as a result of her tricuspid valve endocarditis with bacteremia rather than another organism causing the pneumonia, but that still is a possibility. MEDICATIONS: The patient is on a combination of vancomycin, rifampin and Cefepime. PHYSICAL EXAMINATION: Vital Signs: Temperature is 99.6 degrees, pulse 76, respirations 18, blood pressure 117/76. Generally: This is a somewhat ill-appearing, young female. She is in no acute distress. Ears, nose and throat: She can hear my spoken words and see near objects. Neck: No meningismus. Lungs: Clear to auscultation. Cardiovascular: Regular heart rate. I did not hear a murmur. Abdomen: Soft and nontender. LABORATORY AND X-RAY: Patient's CBC shows a white count 13,160, hemoglobin 9.1 , and platelet count 311,000. Creatinine is 1.3. The GFR is 48. The patient's blood gases revealed a pH of 7.44, PO2 of 51, a pCO2 of 31. Chest x-ray shows bilateral infiltrates. Repeat blood cultures are growing g+rods. Echocardiogram shows tricuspid valve vegetation is larger. ASSESSMENT AND PLAN: 1. The patient has as mentioned above methicillin-resistant Staph aureus tricuspid valve endocarditis with probable pneumonia. The condition is worse because the patient signed out AMA and had not had any antibiotic treatment for at least 7 days. The plan is to treat the patient with vancomycin and rifampin. During the patient's last admission both those antibiotics were needed to clear the patient's bloodstream. In any event, we will be starting with those two antibiotics and both will need to be given for a total of 6 weeks. I am going to continue with cefepime until we feel fairly certain that the patient's pneumonia is due to the patient's tricuspid valve endocarditis, which I think certainly would be the most likely explanation. 2. The two biggest comorbidities in this patient are: 1) She is noncompliant with treatment. 2) She does intravenous drug abuse. cc: Agustín Baldwin MD MTDHugo
[2016-10-15] MEDS: DIFLUCAN PO SCH (16:59)
[2016-10-16] MEDS: VANCOMYCIN 1 GM/NS 1 GM/250 ML IVPB IV SCH (02:19)
[2016-10-16] MEDS: NS 1,000 ML IV SCH ×2 (02:20→18:58)
--- NOTE | 2016-10-16 03:55 | PROGRESS NOTE ---
DATE: 10/15/2016 ADDENDUM: Patient is noted to have a moderate left pleural effusion. I think at a minimum some of the specimen should be aspirated to make sure she does not have an empyema and if she has an empyema then certainly chest tube would be needed. cc: Agustín Baldwin MD
[2016-10-16] MEDS: PRILOSEC PO SCH (06:11)
[2016-10-16] MEDS: TYLENOL PO PRN ×3 (06:11→18:50)
--- NOTE | 2016-10-16 08:14 | PROGRESS NOTE ---
DATE: 10/16/2016 SUBJECTIVE: The patient denies any current complaints, although states that she wants to go home. Does not want to stay in the hospital for medications. OBJECTIVE: Vital signs: Temperature 98, pulse 62, respiratory 16, BP 127/86, saturating 96% on room air. General: Patient is awake, alert. She is currently in no respiratory distress. She is lying in bed. HEENT: Normocephalic, atraumatic. KRISSY. Neck: Supple. CV: Regular rate. Chest: Clear. Abdomen: Soft. Extremities: Moves all extremities. LABS: Chest x-ray with pleural effusion. ASSESSMENT: 1. 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 2. Pneumonia, also likely secondary to methicillin-resistant Staphylococcus. 3. Pleural effusion, uncertain etiology. May again be related to methicillin-resistant Staphylococcus. 4. Intentional medical noncompliance. Patient was in the hospital just recently and decided she no longer wanted to stay for treatment and left AMA. 5. Current history of intravenous drug abuse which prevents PICC line and home IV antibiotics. PLAN: As noted by Dr. Baldwin. Patient needs to be on antibiotics for a total of 6 weeks she currently is on cefepime because of her pneumonia. We will repeat her chest x-ray to ensure that the pleural effusion is improving. If not, certainly may need to have interventional radiology assist with obtaining fluid from her effusion to make sure that this is not an actual empyema. Until that can be determined, discussed with patient that she needs to stay in the hospital on IV cefepime as well as rifampin and vancomycin for her MRSA. Further orders as needed. cc: Tom Carlos MD
[2016-10-16] MEDS: NICODERM PATCH TD SCH (08:15)
[2016-10-16] MEDS: RIFAMPIN PO SCH (08:16)
[2016-10-16] MEDS: MAXIPIME 1 GM in NS 50 ML IV SCH ×2 (08:16→20:45)
[2016-10-16] MEDS: SUBUTEX SL SCH ×3 (08:16→20:45)
[2016-10-16 08:23] LABS: HEMATOCRIT 21.5 % (37.0-47.0); MCH 27.9 PG (27-31); MCHC 32.6 g/dL (33-37); MCV 85.7 FL (81-99); MPV 10.4 FL (7.4-10.4); RBC 2.51 XMIL (4.2-5.4)
[2016-10-16 08:45] LABS: AGAP 16; ALKALINE PHOSPHATASE 158 U/L (32-104); BUN 10 mg/dL (8-22); CALCIUM 7.7 mg/dL (8.8-10.2); CHLORIDE 107 mmol/L (98-107); COSMO 276; GOT 11 U/L (10-30); GPT 6 U/L (10-36); POTASSIUM 3.9 mmol/L (3.5-5.1); SODIUM 139 mmol/L (136-145); TCO2 17 mmol/L (25-35); TOTAL PROTEIN 5.7 g/dL (6.3-8.3)
--- NOTE | 2016-10-16 08:49 | Diag Imaging Result Doc PS360 ---
EXAM: CHEST-2 VIEWS HISTORY: pleural effusion TECHNIQUE: COMPARISON: 10/14/2016 FINDINGS: There is persistence of the small to moderate-sized left-sided pleural effusion and in the small right-sided pleural. There is atelectasis in the left base. Heart is not enlarged and the vessels are not distended. Nodular density in the left apex and in the mid right lung remain. IMPRESSION: No interval improvement. Electronically signed by Justin San 10/16/2016 8:47 AM
--- NOTE | 2016-10-16 09:38 | Diag Imaging Result Doc PS360 ---
EXAM: CHEST-2 VIEWS HISTORY: POST LEFT THORACENTESIS TECHNIQUE: Inspiratory and expiratory chest, two views COMPARISON: Compared to films taken earlier in the morning FINDINGS: Interval decrease in the size of the left pleural effusion. A small effusion remains as does atelectasis and infiltrates in the left base. Questionable tiny lateral pneumothorax. No apical pneumothorax. IMPRESSION: Questionable tiny pneumothorax following thoracentesis. Follow-up films will be performed in several hours. Electronically signed by Justin San 10/16/2016 9:36 AM
--- NOTE | 2016-10-16 09:43 | Diag Imaging Result Doc PS360 ---
EXAM: THORACENTESIS W/IMAGE GUIDANCE HISTORY: Left pleural effusion TECHNIQUE: Ultrasound-guided left-sided thoracentesis COMPARISON: None. FINDINGS: Prior to the procedure I discussed the risk and benefits with the patient. Primary risks include: Bleeding, infection, and a pneumothorax which could require chest tube. Questions were answered. Consent was given. Permit was signed. The skin was cleaned in the normal fashion. Lidocaine was used as a local anesthetic. Needle and catheter were advanced into the lower left pleural effusion without difficulty on the first try. Needle was withdrawn. Catheter was hooked to tubing. Approximately 700 cc of thin reddish fluid was withdrawn without difficulty. This was sent to the laboratory for analysis. The patient had no complaints during or following the procedure. IMPRESSION: Ultrasound-guided thoracentesis with no immediate postprocedural complications. Electronically signed by Justin San 10/16/2016 9:40 AM
--- NOTE | 2016-10-16 14:12 | Diag Imaging Result Doc PS360 ---
EXAM: CHEST-2 VIEWS HISTORY: 2:00 CHEST AFTER THORACENTESIS TECHNIQUE: COMPARISON: Inspiratory and expiratory chest films taken earlier FINDINGS: The appearance of the chest is unchanged from films taken earlier. Questionable tiny amount of air laterally in the mid left lung is unchanged. If this does represent a tiny amount of air may have been introduced during the procedure. There is no apical pneumothorax. IMPRESSION: Stable chest. Electronically signed by Justin San 10/16/2016 2:10 PM
[2016-10-16] MEDS: DIFLUCAN PO SCH (18:48)
[2016-10-16] MEDS ORDERED: VANCOMYCIN 1,250 MG in NS 250 ML IV SCH (22:00)
[2016-10-17] MEDS: NS 1,000 ML IV SCH (05:24)
[2016-10-17] MEDS: TYLENOL PO PRN ×2 (06:33→08:16)
[2016-10-17] MEDS: PRILOSEC PO SCH (06:33)
[2016-10-17 07:53] VITALS: BP 151/100
[2016-10-17] MEDS: SUBUTEX SL SCH (08:16)
[2016-10-17] MEDS: MAXIPIME 1 GM in NS 50 ML IV SCH (08:17)
[2016-10-17] MEDS: NICODERM PATCH TD SCH (08:17)
[2016-10-17] MEDS: RIFAMPIN PO SCH (08:17)
--- NOTE | 2016-10-17 08:24 | PROGRESS NOTE ---
DATE: 10/17/2016 SUBJECTIVE: Patient without new complaints, although states she does not want stay in the hospital. PHYSICAL: Vital Signs: Temperature 99, pulse 66, respiratory rate 16, BP 151/100, saturation 94% on room air. General: Patient is awake, alert. She is in no respiratory distress. Her memory is intact. Neck: Supple. CV: Regular rate. Chest: Clear. Abdomen: Soft. Extremities: Moves all extremities. LABS: No labs today as patient refused to allow them to be drawn. ASSESSMENT: 1. Methicillin-resistant Staph aureus endocarditis with tricuspid valve involved. 2. Pneumonia. likely secondary to methicillin-resistant Staph. 3. Pleural effusion, status post thoracentesis yesterday. 4. Intentional noncompliance. Patient left the hospital against medical advice on the last admission. 5. Current IV drug abuse and drug use which prevents home IV antibiotics. PLAN: Ms. Kirk this morning stated that she wanted to go home and that she was not going to stay in the hospital. I discussed with her as did Dr. Baldwin and each staff member that has been in the room that she will if she goes home. She states that she wants to think about it. At that point, I discussed with her that I was not actually clear how that would be an option to think about going home and dying versus staying in the hospital and getting IV antibiotics. Discussed with her there is no option for her to go home with a PICC line. Given her history, there is no option for oral antibiotics. There is no option for her not taking antibiotics. She states that her father is going to take her to a deputy chief sheriff. Discussed with her again that Cardiology would simply say you need to be in the hospital on IV antibiotics. Again, discussed with patient the perils of leaving AMA. Discussed with her that we cannot discharge her given her history. Discussed with her that if she decides to stay, that we can place a PICC line, but she has to make that decision. However, if she does decide to stay to get a PICC line and then leave AMA, it will have to be removed. If she leaves without letting the staff know, we will have to get to the police department involved to find her and bring her back for PICC line removal. cc: Tom Carlos MD
--- NOTE | 2016-10-17 08:44 | Diag Imaging Result Doc PS360 ---
EXAM: CHEST-2 VIEWS - 10/17/2016 HISTORY: hypoxia TECHNIQUE: Chest two views COMPARISON: 10/16/2016 FINDINGS: There are bilateral infiltrates with some nodularity. Infiltrate is most prominent at the left base, where it appears grossly stable. There is been interval decrease in infiltrate in the right base. There are stable cysts small right a medium left pleural effusions. There is possible tiny loculated pneumothorax at the lateral left mid chest similar to the previous exam. There is no other pneumothorax identified. Heart size appears upper normal. IMPRESSION: Stable exam compared to prior except for some decrease in infiltrate at the right base. Electronically signed by Vik Cr 10/17/2016 8:42 AM
--- NOTE | 2016-10-17 17:45 | DISCHARGE SUMMARY ---
ADMISSION DATE: 10/14/2016 DISCHARGE DATE: 10/17/2016 DATE LEFT AMA: 10/17/2016. DIAGNOSES: 1. Methicillin-resistant Staphylococcus aureus endocarditis with tricuspid valve involvement. 2. Pneumonia likely secondary to methicillin-resistant Staphylococcus. 3. Pleural effusion status post thoracentesis 10/16/2016. 4. Intentional noncompliance having left the hospital; this being the second time. 5. Current IV drug abuse and drug use which prevents home IV antibiotics. MICROBIOLOGY: 1. Blood cultures revealed methicillin resistant Staphylococcus aureus. 2. Thoracentesis, ultrasound-guided, 10/16/2016 with 700 mL of thin reddish fluid withdrawn. Analysis pending. 3. Extremity venous study of bilateral legs revealed no evidence of deep venous thrombosis. 4. Echocardiogram 10/14/2016 revealed tricuspid valve, thickened vegetation in the tricuspid valve leaflets with two vegetations noted in the septal leaflet. Normal pulmonic valve. Normal left ventricular cavity size with EF of 60%. Moderate tricuspid regurgitation. No aortic stenosis or regurgitation but trace mitral regurgitation and pleural effusion. CONSULTATIONS: 1. Dr. Reno Carpenter, Cardiology. 2. Dr. Agustín Baldwin, Infectious Disease. HOSPITAL COURSE: Ms. Kirk presented to the emergency room complaining of fever and chills having known MRSA UTI, cavitary pneumonia, and tricuspid valve endocarditis leaving AMA on 10/04/2016. She returned with fever, chills of 103.1 with a blood pressure of 88/51 and sepsis. Blood cultures, of course, revealed MRSA. She was given IV hydration, antibiotic coverage of vancomycin, cefepime and rifampin. She underwent ultrasound-guided thoracentesis with 700 mL of fluid which she tolerated well. Chest x-rays revealed no pneumothorax. White count was 13 on admission; it was 10 yesterday. We did replete her potassium and trended electrolytes. She requested a PICC line from admission and was told multiple times per Dr. Carlos as well as Dr. Baldwin, that given her history, there is no option for her to go home with a PICC line. She did allow peripheral IV to be started, and she did receive antibiotics until this morning, and last night she refused for IV to be restarted. She refused labs to be drawn stating that she wanted a PICC line. Once again, this was discussed per Dr. Carlos with the patient that a PICC line was not an option, neither was going home on any sort of any IV antibiotics due to her continued IV drug use and that there was no option for oral antibiotics. She discussed going AMA. Dr. Carlos had a long discussion with her this morning reminding her that she will if she goes home. She did state that she wanted to think about it. He discussed with her that he was not clear how there would be an option to think about going home when dying versus stay in the hospital and getting IV antibiotics. She, at that time, stated that she would think about it and within about 2 hours it was found that the patient was not in her room. The hospital staff as well as security looked for the patient. She could not be found anywhere in the hospital or on the hospital grounds. After looking for approximately an hour, it was clear that the patient had eloped against medical advice. Of note, she did not have an IV in place at this time. Dictated by ISA Joseph for Tom Carlos MD cc: ISA Joseph MD
== END 2016-10-17 09:30 | disposition left against medical advice (07) ==
LOC: P.ED → P.MEDSURG 02:37
PROVIDERS: ATTEND Family Medicine

== ENCOUNTER 2016-10-29 02:28 | Inpatient (IN) ==
--- NOTE | 2016-10-29 03:12 | PROVIDER DOCUMENTATION ---
HPI-General Adult - General Chief Complaint: General Adult Stated Complaint: "WEAK" Time Seen by Provider: 10/29/16 02:52 Source: patient Allergies/Adverse Reactions: Patient Allergies Allergy/AdvReac Type Severity Reaction Status Date / Time No Known Allergies Allergy Verified 10/29/16 03:58 Home Medications: Home Medication List Medication Instructions Recorded Confirmed Last Taken Type Buprenorphine S.l. [Subutex] 1 tab PO TID 10/14/16 10/29/16 Unknown History - History of Present Illness -Gen Adult Nature of Presenting Problems: Presents with c/o malaise, generalized weakness for 2 days. Nonproductive cough , and feet swelling. She had a on 09/26, complicated afterward by MRSa bacteremia, endocarditis, and pneumonia. Was Tx with Vancomycin. At her last Cardiology check-up, she was told to come to ED if she started feeling bad. She also says her incision is still open, but saw her OB this week, and they were pleased with the healing Location of Pain/Injury: reports: none Pain Radiation: reports: no radiation Quality of Pain: reports: none Severity: reports: moderate Onset/Duration: reports: 2 days ago Timing: reports: still present Modifying Factors: improves with: nothing Associated Symptoms: reports: cough, fever/chills (chills, no fever), malaise, weakness Similar Symptoms Previously?: No Recently seen or treated by another doctor?: Yes Review of Systems - Adult - REVIEW OF SYSTEMS - ADULT Constitutional: reports: see HPI Eyes: reports: no symptoms reported Ears, Nose, Mouth & Throat: reports: no symptoms reported Cardiovascular: reports: see HPI, edema Respiratory: reports: see HPI, cough, excessive sputum production Genitourinary: reports: no symptoms reported Musculoskeletal: reports: no symptoms reported Integumentary: reports: no symptoms reported Neurological: reports: no symptoms reported Psychiatric: reports: no symptoms reported Endocrine: reports: no symptoms reported Hematologic/Lymphatic: reports: no symptoms reported Allergic/Immunologic: reports: no symptoms reported Past History - Adult - PAST MEDICAL HISTORY-ADULT Review of Records: reports: Medications Reviewed Cardiovascular: reports: other (endocarditis) Respiratory: reports: pneumonia Obstetrical/Gynecological: reports: other (C-S x 4) Neurological: reports: denies history Psychiatric: reports: denies history Endocrine/Immune: reports: denies history Other Conditions: reports: MRSA - PRIOR SURGERIES/PROCEDURES Surgical/Procedure History: reports: (x4) - IMMUNIZATION STATUS Childhood Immunizations: See Nurse Assessment Flu Vaccine: See Nurse Assessment - SOCIAL HISTORY Smoking: cigarettes Provider spent 3-5 mins advising pt. on dangers of tobacco.: says PCP told her would rather she smoke than relapse into drug abuse Physical Exam-General - PHYSICAL EXAM-ADULT Initial Vital Signs Reviewed: Yes - CONSTITUTIONAL General Appearance: appears well, alert, no apparent distress - EYES Eyes: PERRL/EOMI, pink conjunctivae - HEAD, EARS, NOSE, MOUTH & THROAT HENMT: normocephalic/atraumatic, moist mucous membranes, normal ENT inspection, pharynx normal - NECK Neck: full range of motion, supple - RESPIRATORY Respiratory: lungs clear, normal breath sounds, no pleuratic chest pain, no respiratory distress, no accessory muscle use - CARDIOVASCULAR Cardiovascular: normal peripheral pulses, regular rate, rhythm, other (2-3+ edema to feet) - GASTROINTESTINAL (ABDOMEN) Abdominal Exam: non tender, soft - MUSCULOSKELETAL Back Exam: normal inspection, no CVA tenderness, no vertebral tenderness Extremity: normal range of motion, non-tender, normal gait, normal inspection - SKIN Integumentary: normal color, normal turgor, warm/dry, other (healing incision) - NEUROLOGIC Neurologic: manager operating II-XII nml as tested, grossly normal, no motor/sensory deficits - PSYCHIATRIC Psych/Mental Status: normal mood/affect, normal thought content, normal thought process, oriented x 3 Progress - PLAN OF CARE/RESULTS Progress/Plan/Lab Results: Vital Signs - 8 hr 10/29/16 02:32 Temperature 98.9 F Pulse Rate 121 H Respiratory Rate 16 Blood Pressure 107/67 O2 Sat by Pulse Oximetry 99 Orders Category Date Time Status CHEST-2 VIEWS [RAD] Stat Exams 10/29/16 03:05 Ordered BLOOD CULTURE [BLDCUL] Stat Lab 10/29/16 03:05 Uncollected CBC WITH DIFF [HEME] Stat Lab 10/29/16 03:05 Ordered COMPREHENSIVE METABOLIC PANEL [CHEM] Stat Lab 10/29/16 03:05 Uncollected EKG [EKG] Stat Ther 10/29/16 03:05 Ordered Result Diagrams: 10/29/16 03:11 10/29/16 03:11 - XRAY 1 XRAY Study: Chest Impression: Abnormal XRAY Interpretation: Diffuse infilt, R>L - CONSULTS/PCP/HOSPITALIST Notification #1 *Consult/PCP/Hospitalist*: Declan Time Discussed: 04:50 Consult Disposition: Will see in ED, Admit Departure - Departure Date of Disposition Decision: 10/29/16 Time of Disposition Decision: 04:49 DIAGNOSIS: Bilateral pneumonia Qualifiers: Pneumonia type: due to unspecified organism Lung location: unspecified part of lung Qualified Code(s): J18.9 - Pneumonia, unspecified organism Anemia Qualifiers: Anemia type: unspecified type Qualified Code(s): D64.9 - Anemia, unspecified Disposition: ADMITTED INPATIENT 09 Certified Medical Emergency: Emergent Condition: Good - Critical Care Note This patient required my direct & personal management of CC.: No
[2016-10-29] MEDS ORDERED: NS 1,000 ML IV ONE (03:16)
[2016-10-29 03:39] LABS: BASO% 0.1 % (0.0-0.8); EOS# 0.06 X1000 (0.0-0.7); EOS% 0.4 % (0.0-10.0); HEMATOCRIT 20.8 % (37.0-47.0); HEMOGLOBIN 6.6 g/dL (12.0-16.0); IMM GRAN# 0.27 X1000 (0.0-0.04); IMM GRAN% 1.6 % (0.0-0.5); LYMPH# 1.42 X1000 (1.2-3.4); LYMPH% 8.4 % (20.5-51.1); MANUAL DIFF NEEDED? NO; MCH 26.1 PG (27-31); MCHC 31.7 g/dL (33-37); MCV 82.2 FL (81-99); MONO# 0.74 X1000 (0.11-0.59); MONO% 4.4 % (1.7-9.3); NEUT% 85.1 % (42.2-75.2); PLT 125 X1000 (130-400); RBC 2.53 XMIL (4.2-5.4)
[2016-10-29 04:01] LABS: AGAP 21; ALBUMIN 2.3 g/dL (3.5-5.0); ALKALINE PHOSPHATASE 176 U/L (32-104); BUN 13 mg/dL (8-22); CALCIUM 7.5 mg/dL (8.8-10.2); CHLORIDE 85 mmol/L (98-107); COSMO 259; GOT 32 U/L (10-30); GPT 11 U/L (10-36); POTASSIUM 4.1 mmol/L (3.5-5.1); SODIUM 129 mmol/L (136-145); TCO2 23 mmol/L (25-35); TOTAL PROTEIN 6.6 g/dL (6.3-8.3)
[2016-10-29] MEDS ORDERED: ZOSYN 3.375 GM/NS 3.375 GM/50 ML IVPB IV ONE (04:47)
[2016-10-29] MEDS ORDERED: VANCOMYCIN 1 GM/NS 1 GM/250 ML IVPB IV ONE (04:47)
--- NOTE | 2016-10-29 06:26 | HISTORY AND PHYSICAL ---
PRIMARY CARE PHYSICIAN: No primary care physician. REASON FOR ADMISSION: One-week history of progressive weakness, fever, and chills. HISTORY OF PRESENT ILLNESS: Ms. Kinjal Kirk is a 30-year-old lady with a recent history of MRSA cavitary pneumonia and tricuspid valve endocarditis with MRSA UTI. She was admitted on 09/26/2016, signed out against medical advice a week later, and then readmitted on 10/14/2016 and left against medical advice three days later. The bone of contention was that she wanted a PICC line placed but due to the young judgement of my colleagues and her past medical history of IV drug abuse this was declined and this upset the patient. She comes in today complaining of generalized weakness in addition to the pre-existing fever and chills and night sweats. She says she has been feeling also dizzy and noticed that her legs have been swelling for the last 2 days. No orthopnea or chest pain. No palpitations. She is having a cough productive of occasionally clear sputum. She denies any hematuria or any genitourinary or GI complaints. No focal neurological complaints or headaches or visual problems. She denies any evidence of any bleeding from any orifice. REVIEW OF SYSTEMS: A 12 system review is negative. Positive findings per HPI. MEDICATIONS: She takes Subutex 8 mg t.i.d. PAST SURGICAL HISTORY: Four C-sections. SOCIAL HISTORY: States that she does not use any IV drugs. Smokes 1 pack a day. No alcohol or illicit drug use. She is . FAMILY HISTORY: Notable for lung cancer in her grandparents. No heart disease or diabetes in her parents or siblings. LABORATORY WORK: Notable for white count of 16,000, hemoglobin and hematocrit of 6 and 20, platelet count 125,000, 85% neutrophils noted. Sodium 129 with a BUN of 13, creatinine of 0.9, calcium 7.5. AST is 32, ALT 11, alkaline phosphatase 176, albumin 2.3. Chest film reviewed by me is a well penetrated film. No overt infiltrates noted. Questionable right middle lobe infiltrate but the patient appears to have more of a slightly increased vascular markings. PHYSICAL EXAMINATION: GENERAL: Thin, partially emaciated young woman who appears older than stated age. VITAL SIGNS: Blood pressure is 107/67. She reports her blood pressure being in low 80s at home and that concerned her. However, it is 121. Temperature is 98.9, respirations 18, O2 saturation 99% on room air. GENERAL: She is alert and oriented to person, time. Normal mood and affect. HEENT: Head is normocephalic, atraumatic. Eyes, PERRL, EOMI. She is anicteric but pale. ENT exam is grossly normal. No central cyanosis. NECK: Neck is supple. No JVD or carotid bruit. No thyromegaly. No hepatojugular reflux. LYMPH NODE: Exam is negative. CHEST: Few bibasilar crepitations heard but good air entry both lung retana. CARDIOVASCULAR: First and second heart sounds heard. Two to 3 over 6 ejection systolic murmur is heard in the tricuspid area. Rhythm is regular. ABDOMEN: Scaphoid, soft, nontender. No mass, megaly. Bowel sounds hypoactive. RECTAL: Deferred. EXTREMITIES: She has 1+ pitting edema of lower extremities. Pulses distally of lower extremities are intact. No evidence of any splinter hemorrhages, Osler's or Janeway lesions on palms or on the plantar surface of feet. NEUROLOGICAL: No focal deficits. SKIN: Negative other than being pale. MUSCULOSKELETAL: Grossly normal. ASSESSMENT: 1. Methicillin-resistant Staphylococcus aureus tricuspid valve endocarditis that may have precipitated antecedent methicillin-resistant Staphylococcus aureus pneumonia. 2. Anemia, probably secondary to hypoproliferative bone marrow secondary to current chronic inflammatory disorder, i.e., endocarditis. 3. Pneumonia. 4. Moderate malnutrition. 5. Anemic heart failure. PLAN: At this time, had lengthy discussion with the patient who is now agreeable and willing to stay at least 4 weeks for complete treatment of her endocarditis. Will do an extensive anemia workup. Start patient on vancomycin and Zosyn. Transfuse patient 2 units of packed red blood cells. The patient is manifesting early signs of anemic heart failure. We will give patient Lasix in between the blood transfusions. Consult Dr. Agustín Baldwin regarding the said endocarditis. No need for echocardiogram at this point in time, but if the patient still shows florid signs of congestive heart failure then we need to repeat one. If there is any evidence of valve dehiscence or damage, I have informed the patient that she may end up having prostatic prosthetic valve replacement. This seems to concern the patient a lot. cc: Haylee Manriquez MD
[2016-10-29] MEDS ORDERED: ZOFRAN IV PRN (06:48)
[2016-10-29] MEDS ORDERED: LASIX IV ONE (06:48)
[2016-10-29] MEDS ORDERED: VANCOMYCIN IV PER PHARMACY MISC SCH ×2 (06:48→16:15)
[2016-10-29 07:12] LABS: RETIC% 0.74 % (0.8-2.1); RETIC-HE 22.4 PG (28.2-36.6)
[2016-10-29] MEDS: ICAR-C PLUS PO SCH (08:29)
[2016-10-29] MEDS: ZOSYN 3.375 GM/NS 3.375 GM/50 ML IVPB IV SCH ×2 (08:29→19:09)
[2016-10-29] MEDS: SUBUTEX SL SCH ×3 (08:29→17:24)
[2016-10-29] MEDS: LOVENOX SUBQ SCH (08:30)
[2016-10-29 08:34] LABS: FERRITIN 470 ng/mL (13-150)
--- NOTE | 2016-10-29 09:03 | Diag Imaging Result Doc PS360 ---
CHEST-2 VIEWS - 10/29/2016 INDICATION: COUGH TECHNIQUE: COMPARISON: 10/17/2016 FINDINGS: There is significant decrease in the left basilar pleural effusion, with trace residual effusion on both sides. There are some ill-defined infiltrates diffusely and bilaterally. These appear patchy and alveolar. Heart size is top normal. IMPRESSION: 1. Improvement in the pleural effusions. 2. No change in the patchy bilateral alveolar infiltrates, indeterminate. The patient has been treated for tricuspid valvular myocarditis with resulting septic emboli. Electronically signed by Devante Chew 10/29/2016 9:01 AM
[2016-10-29] MEDS ORDERED: PRILOSEC PO ONE (12:59)
[2016-10-29] MEDS: TYLENOL PO PRN (13:17)
[2016-10-29] MEDS: NICODERM PATCH TD PRN (13:22)
[2016-10-29 18:07] LABS: URINE CULTURE NEEDED? NO; URINE MICRO REVIEW NEEDED? NO; URINE SOURCE CLEAN CATCH
[2016-10-29 18:20] LABS: BILIRUBIN URINE NEGATIVE (NEGATIVE); BLOOD URINE NEGATIVE (NEGATIVE); COLOR YELLOW; GLUCOSE URINE NEGATIVE (NEGATIVE); LEUKOCYTES URINE NEGATIVE (NEGATIVE); NITRITE URINE NEGATIVE (NEGATIVE); PROTEIN URINE NEGATIVE (NEGATIVE); TURBIDITY URINE CLEAR (CLEAR); UROBILINOGEN URINE NORMAL (NORMAL)
[2016-10-29 18:27] LABS: SP GRAVITY URINE 1.004; UR EPITHELIAL CELLS <10 /HPF (<10); URINE BACTERIA NEGATIVE /HPF; URINE RBC <10 /HPF (<10); URINE WBC <10 /HPF (<10)
[2016-10-29 18:34] LABS: UR AMPHETAMINES QUAL NONE DETECTED (NONE DETECT); UR BARBITUATES QUAL NONE DETECTED (NONE DETECT); UR BENZODIAZEPIN QUAL NONE DETECTED (NONE DETECT); UR CANNABINOIDS QUAL NONE DETECTED (NONE DETECT); UR COCAINE QUAL NONE DETECTED (NONE DETECT); UR METHADONE QUAL NONE DETECTED (NONE DETECT); UR OPIATES QUAL NONE DETECTED (NONE DETECT); UR OXYCODONE QUAL NONE DETECTED (NONE DETECT); UR PCP QUAL NONE DETECTED (NONE DETECT)
[2016-10-29] MEDS: VANCOMYCIN 1 GM/NS 1 GM/250 ML IVPB IV SCH (20:08)
[2016-10-29] MEDS: KLONOPIN PO PRN (22:33)
--- NOTE | 2016-10-30 04:28 | PROGRESS NOTE ---
DATE: 10/29/2016 PRESENT ILLNESS: The patient has methicillin-resistant Staph aureus, tricuspid valve endocarditis, with probable methicillin-resistant Staph aureus pneumonia secondary to septic emboli from the tricuspid valve. MEDICATIONS: The patient has been treated with vancomycin and rifampin. She has left against medical advice twice from the hospital. PHYSICAL EXAMINATION: Vital Signs: Temperature is 98.2 degrees, pulse 94, respirations 19, blood pressure is 95/67. The patient weighs 99 pounds. General: This is a thin malnourished- appearing ill young female. She is in no acute distress. Head, Eyes, Ears, Nose, and Throat: She can hear my spoken words. She can see near objects. She has poor oral high hygiene. Cavities are present. Neck: No meningismus. Lungs: Clear to auscultation. Cardiovascular: Regular heart rate, with a systolic murmur. Abdomen: Soft and not tender. Neurologic: Patient is awake. She can move her extremities. There is no tremor. LABORATORY STUDIES AND X-RAYS: Chest x-ray shows bilateral alveolar infiltrates and a decreasing left pleural effusion. Patient's urinalysis did not show white cells or bacteria. Her drug screen was negative. The patient's other laboratory studies showed a CBC with a white count of 16,880, hemoglobin 6.6, and platelet count 125,000. Patient's creatinine is 0.9. The GFR is greater than 60. The patient's liver function studies show an alkaline phosphatase of 176, and an AST of 32. Urinalysis shows no white cells or bacteria, and as mentioned above, the patient's drug screen is entirely negative. ASSESSMENT AND PLAN: The patient has endocarditis of the tricuspid valve due to methicillin- resistant Staph aureus, and an associated pneumonia. We have told the patient that she will require a 6-week treatment course with vancomycin. If the blood cannot be cleared of the infection with just vancomycin, I will add rifampin. I have ordered an echocardiogram to be performed tomorrow. Patient's biggest comorbidity is that she does IV drugs, and she is noncompliant regarding antibiotic treatment. cc: Agustín Baldwin MD
[2016-10-30] MEDS: TYLENOL PO PRN ×2 (04:35→13:35)
[2016-10-30] MEDS: PRILOSEC PO SCH (06:43)
[2016-10-30] MEDS: LOVENOX SUBQ SCH (06:44)
[2016-10-30 07:38] LABS: BASO% 0.1 % (0.0-0.8); EOS# 0.08 X1000 (0.0-0.7); EOS% 0.5 % (0.0-10.0); HEMATOCRIT 24.8 % (37.0-47.0); HEMOGLOBIN 8.1 g/dL (12.0-16.0); IMM GRAN# 0.11 X1000 (0.0-0.04); IMM GRAN% 0.7 % (0.0-0.5); LYMPH# 1.79 X1000 (1.2-3.4); LYMPH% 11.7 % (20.5-51.1); MANUAL DIFF NEEDED? YES; MCH 27.6 PG (27-31); MCHC 32.7 g/dL (33-37); MCV 84.4 FL (81-99); MONO# 1.26 X1000 (0.11-0.59); MONO% 8.2 % (1.7-9.3); NEUT% 78.8 % (42.2-75.2); PLT 123 X1000 (130-400); RBC 2.94 XMIL (4.2-5.4)
[2016-10-30 07:49] LABS: AGAP 13; ALBUMIN 2.3 g/dL (3.5-5.0); ALKALINE PHOSPHATASE 159 U/L (32-104); BUN 7 mg/dL (8-22); CALCIUM 7.4 mg/dL (8.8-10.2); CHLORIDE 94 mmol/L (98-107); COSMO 265; GOT 14 U/L (10-30); GPT 7 U/L (10-36); POTASSIUM 3.1 mmol/L (3.5-5.1); SODIUM 133 mmol/L (136-145); TCO2 26 mmol/L (25-35); TOTAL BILIRUBIN 0.74 mg/dL (0.20-1.00); TOTAL PROTEIN 6.2 g/dL (6.3-8.3)
[2016-10-30 07:53] LABS: LYMPHS 8 % (21-51); MONO 4 % (1-9)
[2016-10-30] MEDS: ICAR-C PLUS PO SCH (09:40)
[2016-10-30] MEDS: SUBUTEX SL SCH ×2 (09:40→20:34)
[2016-10-30] MEDS: KLONOPIN PO PRN ×2 (11:19→22:15)
[2016-10-30] MEDS ORDERED: BLISTEX MEDICATED BERRY LIP BALM TOP PRN (13:31)
[2016-10-30] MEDS: NICODERM PATCH TD PRN (13:34)
--- NOTE | 2016-10-30 14:36 | ECHO REPORT ---
ORDER DATE: 10/30/2016 ECHOCARDIOGRAPHIC MEASUREMENTS: 1. Interventricular septum 0.8, left ventricular posterior wall 0.8, diastolic diameter 4.6, left atrium 3.3, aorta 2.4, normal left ventricular cavity size. Estimated ejection fraction of 65%. Right ventricle is dilated with reduced right ventricular systolic function. 2. There is large 2 vegetations noted on the anterior tricuspid valve as well as the septal valve leaflet associated with severe tricuspid regurgitation. 3. Mitral valve leaflets are normal. 4. Aortic valve leaflets are trileaflet. 5. There is mild mitral regurgitation. 6. Peak velocity across the tricuspid valve was 3.1 m/sec. 7. Pulmonary artery systolic pressure of 47 mmHg. 8. There is no pericardial effusion. 9. There is no aortic stenosis or regurgitation. There is no pericardial effusion. cc: MD Agustín Rg MD
[2016-10-30] MEDS ORDERED: SUBUTEX SL SCH (15:00)
[2016-10-30] MEDS: DUONEB (A & A) INH SCH ×2 (15:47→22:36)
--- NOTE | 2016-10-30 17:05 | PROGRESS NOTE ---
DATE: 10/30/2016 SUBJECTIVE: The patient has no focal complaints. OBJECTIVE: Vital Signs: Blood pressure 92/52, heart rate of 107, respiratory rate 16, temperature 98.5 degrees, T-max was 102.6 degrees. Micro for blood cultures positive. PROBLEM LIST: 1. Endocarditis with tricuspid who was not been completely treated because of lack of compliance with her medications. We will continue to follow. ID is following. She all obviously need 6 weeks of IV therapy and then further evaluation. 2. Anemia. Likely chronic inflammation. Hemoglobin and hematocrit are stabilized. 3. Cavitary methicillin-resistant Staphylococcus aureus pneumonia. We will continue empiric antibiotics, breathing treatments and follow. 4. History of significant IV drug use. The patient is requesting some control of pain. We will give her some medications, although we are not going to give any narcotic medications at this point and follow. 5. Disposition. Pending her issues, although because of her drug history she will likely be a long-term IV therapy inpatient because there is no safe disposition for her as an outpatient. cc: Lake Raymundo MD
--- NOTE | 2016-10-30 19:00 | PROGRESS NOTE ---
DATE: 10/30/2016 PRESENT ILLNESS: The patient has a methicillin-resistant Staph aureus tricuspid valve endocarditis with probable methicillin-resistant Staph aureus pneumonia secondary to septic emboli from the valve. MEDICATIONS: The patient is being treated with vancomycin. PHYSICAL EXAMINATION: Vital Signs: Temperature was 102.4, now it is 99.6, pulse is 110, respirations 20, blood pressure 107/65. General: This is a thin, malnourished-appearing female. She is in no acute distress. Lungs: Clear to auscultation. Cardiovascular: Regular heart rate. Abdomen: Soft and nontender. Neurologic: Patient is alert. She can move her extremities. Ears, nose, and throat: No drainage was noted from the nose or ears. As I mentioned yesterday, she does have poor oral hygiene. LAB AND X-RAY: CBC shows a white count of 15,350, hemoglobin 8.1, and platelet count 123,000. Creatinine 0.7. GFR is greater than 60. Echocardiogram shows 2 vegetations on the tricuspid valve. ASSESSMENT AND PLAN: The patient has tricuspid valve endocarditis due to methicillin-resistant Staph aureus and an associated pneumonia. I plan to treat the patient for 6 weeks with vancomycin and tonight I have added rifampin in view of the fact that the patient is still spiking fevers. Once we get a negative blood culture then I will insert a PICC in the patient. As mentioned above, I tend to treat the patient for 6 weeks with vancomycin but the start of the 6 weeks will be the 1st time that the blood cultures are sterile. The patient's comorbidities are that she does IV drugs and she has been noncompliant with our treatment for her endocarditis. cc: Agustín Baldwin MD
[2016-10-30] MEDS: VANCOMYCIN 1 GM/NS 1 GM/250 ML IVPB IV SCH (20:32)
[2016-10-30] MEDS: RIFAMPIN PO SCH (20:34)
[2016-10-30] MEDS: MUCOMYST 20% INH SCH (22:36)
[2016-10-31] MEDS: DUONEB (A & A) INH SCH ×4 (03:39→21:39)
[2016-10-31] MEDS: KLONOPIN PO PRN ×2 (06:00→23:50)
[2016-10-31] MEDS: PRILOSEC PO SCH (06:00)
[2016-10-31] MEDS: LOVENOX SUBQ SCH (06:01)
[2016-10-31] MEDS: TYLENOL PO PRN ×2 (09:16→20:21)
[2016-10-31] MEDS: RIFAMPIN PO SCH (09:17)
[2016-10-31] MEDS: ICAR-C PLUS PO SCH (09:17)
[2016-10-31] MEDS: MUCOMYST 20% INH SCH ×2 (09:25→19:26)
[2016-10-31] MEDS: SUBUTEX SL SCH ×3 (09:37→23:50)
[2016-10-31 10:26] LABS: HEMATOCRIT 24.8 % (37.0-47.0); HEMOGLOBIN 7.9 g/dL (12.0-16.0); MCH 27.7 PG (27-31); MCHC 31.9 g/dL (33-37); MPV 13.8 FL (7.4-10.4); RBC 2.85 XMIL (4.2-5.4)
[2016-10-31 10:49] LABS: AGAP 14; BUN 6 mg/dL (8-22); CALCIUM 7.5 mg/dL (8.8-10.2); CHLORIDE 94 mmol/L (98-107); COSMO 267; SODIUM 134 mmol/L (136-145); TCO2 26 mmol/L (25-35)
--- NOTE | 2016-10-31 11:44 | PROGRESS NOTE ---
DATE: 10/31/2016 Today Ms. Kirk refers to be doing fine. She says she has been having some on and off fevers and also that her legs have been getting slightly swollen since she got a transfusion. OBJECTIVE: Vital signs: Blood pressure is 101/60, pulse of 122, respiration is 18, temperature is 102.1 degrees. General: Ms. Kirk is a 40-year-old female. She is in bed, not in any remarkable distress. HEENT: Mucosa is pink and moist. Anicteric. Acyanotic. Has a very poor dentition. Neck: Supple. Did not appreciate any JVD. Chest: Good air entry bilaterally. A few bibasilar crepitations. Cardiovascular: Regular rate and rhythm. There is about 3/6 TR murmur. Abdomen: Soft, mildly tender on the lower abdomen. Patient has a sterile dressing over the wounds. I did not open it. Extremities: About 1+ pedal edema limited to the feet. PLANING MACHINE OPERATOR: Patient is alert and oriented x4. There is no focal neurological deficit. LABORATORY DATA: WBC is 14.82, hemoglobin is 7.9, platelet count of 127,000. Chemistry is reviewed. Sodium is 134, potassium is 4.0, chloride 94, bicarb is 26. Blood cultures so far up to the of this month shows positive for Staphylococcus aureus. An echocardiogram done on the shows and 2 large vegetations noted on anterior tricuspid valve as well as the septal valve leaflet associated with severe tricuspid regurgitation. CURRENT MEDICATIONS INCLUDE: 1. Clonazepam. 2. Lovenox 30 subcutaneous. 3. Vancomycin. 4. Rifampin. ASSESSMENT: 1. Tricuspid valve endocarditis. Likely due to IV drug abuse. 2. MRSA bacteremia. 3. Cavitary pneumonia likely associated with septic emboli from the endocarditis. 4. History of IV drug abuse. 5. Recent with a wound. 6. Anemia of chronic disease. Patient is status post 2 PRBC transfusions and hemoglobin and hematocrit is relatively stable. So, in general Ms. Kirk is relatively stable. Continues to have on and off fever. A repeat blood culture was done today. Will be pending on that final blood culture. For now patient will continue with the IV vancomycin and p.o. rifampin. I think the long-term plan for discharge will be that the patient will need to go to an LTAC to complete the treatment of IV antibiotics for the endocarditis since it is going to be a huge risk for her to go home with a PICC line knowing her background history of IV drug abuse. cc: Gabo Oliveira MD
[2016-10-31] MEDS: NICODERM PATCH TD PRN (11:53)
[2016-10-31] MEDS: VANCOMYCIN 1 GM/NS 1 GM/250 ML IVPB IV SCH (20:21)
[2016-11-01] MEDS: DUONEB (A & A) INH SCH ×4 (03:31→22:30)
[2016-11-01] MEDS: PRILOSEC PO SCH (06:11)
[2016-11-01] MEDS: LOVENOX SUBQ SCH (06:20)
[2016-11-01 06:38] LABS: MANUAL DIFF NEEDED? NO
[2016-11-01 06:58] LABS: BASO% 0.2 % (0.0-0.8); EOS# 0.27 X1000 (0.0-0.7); HEMATOCRIT 23.5 % (37.0-47.0); HEMOGLOBIN 7.2 g/dL (12.0-16.0); IMM GRAN# 0.09 X1000 (0.0-0.04); IMM GRAN% 0.7 % (0.0-0.5); LYMPH# 2.16 X1000 (1.2-3.4); LYMPH% 15.6 % (20.5-51.1); MCH 26.9 PG (27-31); MCHC 30.6 g/dL (33-37); MCV 87.7 FL (81-99); MONO# 1.11 X1000 (0.11-0.59); MPV 13.4 FL (7.4-10.4); NEUT% 73.5 % (42.2-75.2); PLT 128 X1000 (130-400); RBC 2.68 XMIL (4.2-5.4)
[2016-11-01 07:53] LABS: AGAP 13; BUN 8 mg/dL (8-22); CALCIUM 7.2 mg/dL (8.8-10.2); CHLORIDE 94 mmol/L (98-107); COSMO 267; POTASSIUM 5.4 mmol/L (3.5-5.1); SODIUM 134 mmol/L (136-145); TCO2 27 mmol/L (25-35)
[2016-11-01] MEDS: RIFAMPIN PO SCH (09:48)
[2016-11-01] MEDS: SUBUTEX SL SCH ×3 (09:48→23:08)
[2016-11-01] MEDS: ICAR-C PLUS PO SCH (09:48)
[2016-11-01] MEDS: MUCOMYST 20% INH SCH ×2 (09:56→22:30)
[2016-11-01] MEDS: KLONOPIN PO PRN (15:29)
--- NOTE | 2016-11-01 16:47 | PROGRESS NOTE ---
DATE: 11/01/2016 PRESENT ILLNESS: The patient has methicillin-resistant Staph aureus tricuspid valve endocarditis with embolic involvement of lungs causing a bibasilar pneumonia. MEDICATIONS: This is the first day of treatment with vancomycin and rifampin. PHYSICAL EXAMINATION: Vital Signs: Temperature is 100.8 degrees, pulse 118, respiration is 14, blood pressure 106/71. Generally: This is a chronically ill and malnourished appearing, young female. When I was in the room she was coughing and producing a yellowish to white sputum. Lungs: Clear to auscultation. Cardiovascular: Regular heart rate. Abdomen: Soft and nontender. ENT: Patient has very poor oral hygiene. Caries are present. LAB AND X-RAY STUDIES: There is no new x-ray. Repeat blood cultures are showing gram positive cocci almost certainly to be identified as methicillin-resistant Staph aureus. Creatinine is 0.7. GFR is greater than 60. CBC shows a white count of 13,830, hemoglobin 7.2, and platelet count 128,000. ASSESSMENT AND PLAN: Patient has methicillin-resistant Staph aureus, tricuspid endocarditis with septic emboli to the lung causing pneumonia. The plan is to treat the patient for 6 weeks with vancomycin and rifampin. The patient is receiving antibiotic treatment at this time. However when I treat her for 6 weeks, the start of the count for the 6 weeks treatment is when the first blood culture becomes sterile. Also a PICC will not be placed until the blood cultures are sterile. COMORBIDITIES: The patient's comorbidity is IV drug abuse and noncompliance with treatment with medical illnesses such as her endocarditis. cc: Agustín Baldwin MD
--- NOTE | 2016-11-01 16:51 | PROGRESS NOTE ---
DATE: 11/01/2016 SUBJECTIVE: Today Ms. Kirk refers to be doing fine. She was actually sitting up in the recliner when I went for the airport ramp attendant interview with her. The was also at the bedside with her. OBJECTIVE: Vital signs: Blood pressure is 106/71, pulse of 118, respiration is 14, temperature is 100.8 degrees. General: Ms. Kirk is a 30-year-old female. She was sitting up in the recliner and was not in any distress. HEENT: Mucosa is pink and moist. Anicteric. Acyanotic. Neck: Supple. Chest: Good air entry bilateral. Cardiovascular: Regular rate and rhythm. There is about 3-4/6 TR murmur. Abdomen: Soft, nontender. Extremities: About 1+ pedal edema limited to the feet. BEVERAGE STEWARD: Patient was alert and oriented. There is no focal neurological deficit. LABORATORY DATA: WBC is 13.83, hemoglobin is 7.2, platelet count of 128,000. Chemistry is reviewed, sodium is 134, potassium is 5.4, chloride is 94, bicarb is 27. ASSESSMENT: 1. Tricuspid valve endocarditis due to underlying IV drug abuse. 2. MRSA bacteremia, and we think this is the same bug that has seeded the tricuspid valve. 3. Cavitary pneumonia likely associated with septic emboli from the endocarditis. 4. Anemia of chronic disease. Patient is status post 2 PRBC transfusions. Hemoglobin and hematocrit is slightly low. We would continue observing, if it continues to drop we would re- transfuse her tomorrow. 5. History of IV drug abuse. We did discuss extensively about the possibility of her going home with an IV, with a PICC line, and she does promise in the presence of her that she is not going to be doing any more drugs, and the also will give her the maximum support to take very good care of the line. cc: Gabo Oliveira MD
[2016-11-01] MEDS: TYLENOL PO PRN (18:09)
[2016-11-01] MEDS ORDERED: VANCOMYCIN 1 GM/NS 1 GM/250 ML IVPB IV SCH (20:00)
[2016-11-01] MEDS ORDERED: VANCOMYCIN 1.35 GM in NS 250 ML IV SCH (21:00)
[2016-11-01] MEDS: VANCOMYCIN 1 GM/NS 1 GM/250 ML IVPB IV SCH (23:08)
[2016-11-02] MEDS: KLONOPIN PO PRN (01:17)
[2016-11-02] MEDS: DUONEB (A & A) INH SCH ×4 (03:12→20:13)
[2016-11-02] MEDS: TYLENOL PO PRN (03:52)
[2016-11-02] MEDS: PRILOSEC PO SCH (06:32)
[2016-11-02] MEDS: LOVENOX SUBQ SCH (06:33)
[2016-11-02 08:42] LABS: MANUAL DIFF NEEDED? NO
[2016-11-02] MEDS: ICAR-C PLUS PO SCH (09:00)
[2016-11-02] MEDS: SUBUTEX SL SCH ×3 (09:00→21:16)
[2016-11-02] MEDS: RIFAMPIN PO SCH (09:00)
[2016-11-02 09:06] LABS: BASO% 0.3 % (0.0-0.8); EOS# 0.42 X1000 (0.0-0.7); EOS% 3.4 % (0.0-10.0); HEMATOCRIT 24.6 % (37.0-47.0); HEMOGLOBIN 7.8 g/dL (12.0-16.0); IMM GRAN# 0.08 X1000 (0.0-0.04); IMM GRAN% 0.6 % (0.0-0.5); MCH 28.1 PG (27-31); MCHC 31.7 g/dL (33-37); MCV 88.5 FL (81-99); MONO# 1.04 X1000 (0.11-0.59); MONO% 8.3 % (1.7-9.3); MPV 13.3 FL (7.4-10.4); NEUT% 71.4 % (42.2-75.2); PLT 144 X1000 (130-400); RBC 2.78 XMIL (4.2-5.4)
[2016-11-02] MEDS: VANCOMYCIN 1 GM/NS 1 GM/250 ML IVPB IV SCH (09:11)
[2016-11-02] MEDS: MUCOMYST 20% INH SCH ×2 (09:23→20:12)
[2016-11-02 09:41] LABS: AGAP 13; ALBUMIN 2.1 g/dL (3.5-5.0); ALKALINE PHOSPHATASE 137 U/L (32-104); BUN 8 mg/dL (8-22); CALCIUM 7.3 mg/dL (8.8-10.2); CHLORIDE 97 mmol/L (98-107); COSMO 270; GOT 7 U/L (10-30); GPT < 5 U/L (10-36); POTASSIUM 4.5 mmol/L (3.5-5.1); SODIUM 136 mmol/L (136-145); TCO2 26 mmol/L (25-35); TOTAL BILIRUBIN 1.38 mg/dL (0.20-1.00); TOTAL PROTEIN 5.9 g/dL (6.3-8.3)
--- NOTE | 2016-11-02 17:48 | PROGRESS NOTE ---
DATE: 11/02/2016 SUBJECTIVE: Today Ms. Kirk refers to be doing fine. Denies any complaint. She was actually resting in her recliner when I saw. OBJECTIVE: Vital Signs: Her vitals have been stable. Blood pressure is 106/74, pulse 97, respirations 21, temperature 98.7 degrees. Patient was saturating 95% on room air. General Appearance: Ms. Kirk is a 27-year-old female. She was lying in the recliner in no distress. HEENT: Mucosa is pink and moist. Anicteric. Acyanotic. Chest: Air entry was bilaterally reduced. There are some crepitations. Cardiovascular: Regular rate and rhythm. There is a 3 to 4/6 TR murmur auscultated. Abdomen: Soft. Extremities: About 1+ pedal edema. DEVELOPMENTAL MATHEMATICS INSTRUCTOR: Patient is alert and oriented x4. LABORATORY DATA: WBC is 12.47, hemoglobin is 7.8, platelet count of 144,000. Chemistry is reviewed. Sodium is 136, potassium 4.5, chloride 97. ASSESSMENT: 1. Tricuspid valve endocarditis due to underlying drug abuse. Patient is currently on IV antibiotics. 2. Methicillin resistant staph aureus bacteremia from the endocarditis. Blood cultures done on the is still positive for gram-positive cocci, which I think is probably the same methicillin resistant staph aureus. Vancomycin level is low, so the dose has been increased by the pharmacy to b.i.d. 3. Cavitary pneumonia likely associated with septic emboli from endocarditis. We will continue with the current antibiotics. 4. Anemia of chronic disease. Patient is status post 2 packed red blood cells transfusion. Hemoglobin and hematocrit is stable. 5. History of IV drug abuse. Has been discussed. For now, we will continue with the current IV antibiotics and the adjustment made by ID and pharmacy. We will repeat her blood cultures maybe tomorrow or the day after. We cannot put in a line until blood cultures has been negative. If patient continues to be bacteremic with methicillin resistant staph aureus, I think the next thing will be for cardiovascular to evaluate her for possible intervention. cc: Gabo Oliveira MD
[2016-11-03] MEDS: KLONOPIN PO PRN ×2 (02:43→22:29)
[2016-11-03] MEDS: NICODERM PATCH TD PRN (02:44)
[2016-11-03] MEDS: DUONEB (A & A) INH SCH ×4 (04:05→19:50)
[2016-11-03] MEDS: DUONEB (A & A) INH PRN (05:00)
[2016-11-03] MEDS: VANCOMYCIN 1 GM/NS 1 GM/250 ML IVPB IV SCH ×3 (06:11→13:59)
[2016-11-03] MEDS: PRILOSEC PO SCH (06:12)
[2016-11-03] MEDS: LOVENOX SUBQ SCH (06:12)
--- NOTE | 2016-11-03 06:16 | Diag Imaging Result Doc PS360 ---
EXAM: CHEST-PORTABLE HISTORY: dyspnea TECHNIQUE: Portable COMPARISON: 10/29/2016 FINDINGS: There are infiltrates in the mid and lower lungs bilaterally. These are more prominent on the right. Small pleural effusions. The heart is not enlarged. IMPRESSION: Worsening bilateral infiltrates. Electronically signed by Justin San 11/03/2016 6:13 AM
[2016-11-03] MEDS: SUBUTEX SL SCH ×3 (09:34→20:49)
[2016-11-03] MEDS: RIFAMPIN PO SCH (09:34)
[2016-11-03] MEDS: ICAR-C PLUS PO SCH (09:34)
[2016-11-03] MEDS: TYLENOL PO PRN ×2 (09:37→21:48)
[2016-11-03] MEDS: MUCOMYST 20% INH SCH ×2 (10:14→19:49)
--- NOTE | 2016-11-03 15:33 | PROGRESS NOTE ---
DATE: 11/03/2016 SUBJECTIVE: Today Ms. Kirk referred to be doing fine. She did not have any major complaints. She says she just had her line better placed by IR. OBJECTIVE: Vital Signs: Stable. Blood pressure is 107/72, pulse is now down to 91, respiration is 16, temperature is 100.2 degrees early this morning. The patient is saturating 96% on room air. General Appearance: Ms. Kirk is a 27-year-old female. She is in bed, not in any distress. HEENT: Mucosa is pink and moist. Anicteric. Acyanotic. Neck: Supple. Chest: Air entry is bilaterally reduced. There are some crepitations in the posterior lung retana. Cardiovascular: Regular rate and rhythm. Sounds slightly tachycardic .there is 2-4/6 TR murmur. Abdomen: Soft. Extremities: About 1+ pedal edema. ANIMAL HUMANE AGENT SUPERVISOR: Patient is alert and oriented x4. LAB WORK: There is not any lab work for today because of poor line. ASSESSMENT: 1. Tricuspid valve endocarditis due to underlying drug abuse. 2. Methicillin-resistant Staphylococcus aureus bacteremia. Blood cultures were positive, october 31. The patient is supposed to be due for a repeat blood culture today. However she did mention that she did not get any of her IV antibiotic yesterday because of poor line, so I will postpone the repeat blood culture to a later date. 3. Cavitary pneumonia secondary to septic emboli from endocarditis. 4. Anemia of chronic disease. The patient is status post 2 PRBC transfusions. Hemoglobin and hematocrit was stable up to yesterday. 5. History of IV drug abuse noted. So in general, I think Ms. Kirk seems to be stable. We do not have any lab work on her today because of poor Lyme. A new line has been secured today by PICC line team. Patient will not have a PICC line or central line until the blood cultures are negative. We will continue to monitor her vitals and continue with the current IV antibiotics. If patient continues to have blood culture positive for the MRSA even on adequate antibiotics, we would have to evaluate for cardiovascular consult. cc: Gabo Oliveira MD MTDD
--- NOTE | 2016-11-03 15:43 | PROGRESS NOTE ---
DATE: 11/03/2016 PRESENT ILLNESS: The patient has methicillin-resistant Staph aureus tricuspid valve endocarditis with embolic involvement of the lungs resulting in a bibasilar pneumonia. MEDICATIONS: This patient is receiving vancomycin IV and rifampin p.o. PHYSICAL EXAMINATION: Vital Signs: Temperature is 100.2 degrees, pulse 91, respirations 16, blood pressure 107/72. General: This is a chronically ill and somewhat malnourished-appearing young female. She seems to be coughing much less. Lungs: Clear to auscultation. Cardiovascular: Regular heart rate. Abdomen: Soft and nontender. ENT: Patient has poor oral hygiene with caries being present. LAB AND X-RAY: There is no new x-ray. The lab for today shows a CBC with a white count of 12,470, hemoglobin 7.8 and platelet count 144,000. Creatinine is 0.6. GFR is greater than 60. Alkaline phosphatase is 137. There is no new radiographic study today. ASSESSMENT AND PLAN: The patient has endocarditis with pneumonia. My plan is to continue vancomycin and rifampin. She will need to be treated for 6 weeks with the first day of treatment being the first time that the blood cultures are negative. COMORBIDITIES: The patient's comorbidities are that she has IV drug abuse, and she has been noncompliant with treatment of her endocarditis. cc: Agustín Baldwin MD
[2016-11-04] MEDS: VANCOMYCIN 1 GM/NS 1 GM/250 ML IVPB IV SCH ×2 (00:28→14:00)
[2016-11-04] MEDS: DUONEB (A & A) INH SCH ×4 (04:15→21:00)
[2016-11-04] MEDS: PRILOSEC PO SCH (06:18)
[2016-11-04] MEDS: LOVENOX SUBQ SCH (06:19)
[2016-11-04 06:34] LABS: BASO% 0.4 % (0.0-0.8); EOS# 0.55 X1000 (0.0-0.7); EOS% 4.6 % (0.0-10.0); HEMATOCRIT 27.8 % (37.0-47.0); HEMOGLOBIN 8.5 g/dL (12.0-16.0); IMM GRAN# 0.11 X1000 (0.0-0.04); IMM GRAN% 0.9 % (0.0-0.5); LYMPH# 1.84 X1000 (1.2-3.4); LYMPH% 15.4 % (20.5-51.1); MANUAL DIFF NEEDED? YES; MCH 27.2 PG (27-31); MCHC 30.6 g/dL (33-37); MCV 89.1 FL (81-99); MONO# 0.73 X1000 (0.11-0.59); MONO% 6.1 % (1.7-9.3); NEUT% 72.6 % (42.2-75.2); PLT 130 X1000 (130-400); RBC 3.12 XMIL (4.2-5.4)
[2016-11-04 06:57] LABS: BANDS 8 % (0-1); EOS 2 % (1-10); HYPOCHROM 1+; LYMPHS 6 % (21-51); MONO 6 % (1-9)
[2016-11-04 07:18] LABS: AGAP 15; BUN 4 mg/dL (8-22); CALCIUM 7.8 mg/dL (8.8-10.2); CHLORIDE 100 mmol/L (98-107); COSMO 272; POTASSIUM 4.8 mmol/L (3.5-5.1); SODIUM 138 mmol/L (136-145); TCO2 23 mmol/L (25-35)
[2016-11-04] MEDS: TYLENOL PO PRN ×2 (07:48→14:36)
[2016-11-04] MEDS: SUBUTEX SL SCH ×4 (07:48→22:19)
[2016-11-04] MEDS: ICAR-C PLUS PO SCH ×2 (07:48→09:31)
[2016-11-04] MEDS: MUCOMYST 20% INH SCH ×2 (09:24→20:11)
[2016-11-04] MEDS: RIFAMPIN PO SCH (10:05)
[2016-11-04] MEDS: NS 1,000 ML IV SCH ×2 (10:05→23:53)
--- NOTE | 2016-11-04 13:51 | PROGRESS NOTE ---
DATE: 11/04/2016 SUBJECTIVE: Today Ms. Kirk referred to be doing a little better. Denies any acute problem. No chest pain. Continues to be coughing and spitting up some yellowish sputum. OBJECTIVE: Vital signs: Blood pressure is 116/75, pulse is 101, respiration is 18, temperature 101.5 degrees. General: Ms. Kirk is a 30-year-old female. She is in bed, not seemingly distressed. HEENT: Mucosa is pink and moist. Anicteric. Acyanotic. Neck: Supple. Chest: Air entry bilaterally reduced. There are some crepitations in the posterior lung retana. Cardiovascular: Regular rate and rhythm. Tachycardic, there is about 3 to 4/6 TR murmur. Extremities: 1+ pedal edema. PILL MACHINE OPERATOR: Patient is awake, alert and oriented x4. No focal neurological deficit. LABORATORY DATA: WBC is down to 11.95, hemoglobin is 8.5, platelet count of 130,000. Chemistry is reviewed. Sodium is 138, potassium is 4.8, chloride is 100, bicarb is 23. ASSESSMENT: 1. 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 2. Methicillin-resistant Staphylococcus aureus bacteremia. 3. Cavitary pneumonia secondary to septic emboli from endocarditis. 4. Anemia of chronic disease. The patient is status post 2 packed red blood cell transfusion. 5. History of intravenous drug abuse. 6. Sepsis secondary to underlying endocarditis. We are going to give the patient gentle IV fluid to improve on his hydration status and also help with the borderline blood pressure. The patient continues to be febrile so my guess is probably still bacteremic. We will however repeat the blood cultures maybe on Sunday. cc: Gabo Oliveira MD
[2016-11-04] MEDS: NICODERM PATCH TD PRN (14:36)
[2016-11-04] MEDS: KLONOPIN PO PRN (18:34)
[2016-11-05] MEDS: VANCOMYCIN 1 GM/NS 1 GM/250 ML IVPB IV SCH ×3 (01:31→23:47)
[2016-11-05] MEDS: KLONOPIN PO PRN (02:56)
[2016-11-05] MEDS: TYLENOL PO PRN ×3 (02:56→21:12)
[2016-11-05] MEDS: DUONEB (A & A) INH SCH ×4 (04:13→22:39)
[2016-11-05] MEDS: LOVENOX SUBQ SCH (06:43)
[2016-11-05] MEDS: PRILOSEC PO SCH (06:43)
[2016-11-05] MEDS: SUBUTEX SL SCH ×3 (08:36→21:13)
[2016-11-05] MEDS: ICAR-C PLUS PO SCH (08:36)
[2016-11-05] MEDS: RIFAMPIN PO SCH (08:36)
[2016-11-05] MEDS: MUCOMYST 20% INH SCH ×2 (09:40→22:39)
[2016-11-05] MEDS: NS 1,000 ML IV SCH (13:56)
--- NOTE | 2016-11-05 14:46 | PROGRESS NOTE ---
DATE: 11/05/2016 SUBJECTIVE: Today Ms. Kirk referred to be doing a little better, continues to have some productive cough. OBJECTIVE: Vital signs: Blood pressure is 98/54, pulse of 115, respiration is 18, temperature 99.1 degrees, patient had a T-max of 101.5 degrees time 0740 yesterday had another slight spike of 100.2 at 1420. General: Ms. Kirk is a 30-year-old female. She looks malnourished. She is in bed, no distress. HEENT: Mucosa is pink and moist. Anicteric. Acyanotic. Neck: Supple. Chest: Air entry is bilaterally reduced. There are some crepitations in the posterior lung retana. Cardiovascular: Regular rate and rhythm. Slightly tachycardic. There is a 3/6 TR murmur. Extremity: 1+ pedal edema. STEWARD/STEWARDESS THIRD: Patient is oriented. LABORATORY DATA: None. ASSESSMENT: 1. 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 2. Methicillin-resistant Staphylococcus aureus bacteremia. 3. Cavitary pneumonia secondary to septic emboli from endocarditis. 4. Anemia of chronic disease status post 2 packed red blood cell transfusion. 5. Sepsis secondary to underlying endocarditis. 6. History of intravenous drug abuse. PLAN: Patient continues to be febrile. Wanted to do a CT scan of the chest to make sure that the lung infection is not getting any worse or it has not form any complicated empyema that needs to be drained. She is also refusing to get blood drawn to check on her white counts especially. We are going to repeat her blood culture for tomorrow if she allows. We will continue with the current vancomycin dose. cc: Gabo Oliveira MD [facility]
[2016-11-05] MEDS ORDERED: VANCOMYCIN 1 GM/NS 1 GM/250 ML IVPB IV SCH (18:00)
[2016-11-05] MEDS ORDERED: VANCOMYCIN IV PER PHARMACY MISC SCH (19:30)
[2016-11-06] MEDS: NICODERM PATCH TD PRN (00:06)
[2016-11-06] MEDS: KLONOPIN PO PRN (00:06)
[2016-11-06] MEDS: DUONEB (A & A) INH SCH ×4 (04:05→21:51)
[2016-11-06] MEDS: NS 1,000 ML IV SCH ×2 (04:37→13:34)
[2016-11-06] MEDS: PRILOSEC PO SCH (06:57)
[2016-11-06] MEDS: LOVENOX SUBQ SCH (06:57)
[2016-11-06] MEDS: TYLENOL PO PRN ×2 (07:34→18:55)
[2016-11-06] MEDS: SUBUTEX SL SCH ×3 (08:21→22:10)
[2016-11-06] MEDS: ICAR-C PLUS PO SCH (08:21)
[2016-11-06] MEDS: RIFAMPIN PO SCH (08:21)
[2016-11-06] MEDS: MUCOMYST 20% INH SCH ×2 (08:35→21:50)
[2016-11-06] MEDS: VANCOMYCIN 1 GM/NS 1 GM/250 ML IVPB IV SCH ×2 (10:11→22:54)
--- NOTE | 2016-11-06 15:38 | PROGRESS NOTE ---
DATE: 11/06/2016 SUBJECTIVE: Today Ms. Kirk referred to be doing fine. Still continues to have some productive cough. OBJECTIVE: Vital signs: Blood pressure is 88/59, pulse 104, temperature is 100.4 degrees, patient had a temperature of 101.3 degrees. She continues to decline to do a CT scan. General: Ms. Kirk is a 30-year-old female. She is in bed. She is malnourished. Mucosa is pink and moist. Anicteric. Acyanotic. Neck: Supple. Chest: Air entry is bilaterally reduced. There is bilateral diffuse crepitations. Cardiovascular: Tachycardic. There is a 3/6 TR murmur. Extremities: 1+ pedal edema. TOURIST INFORMATION OFFICER: Patient is awake and oriented. No focal neurological deficit. LABORATORY: There is no any lab work since November 04 because patient does not want any labs to be drawn. ASSESSMENT: 1. Tricuspid valve endocarditis. 2. Methicillin-resistant Staphylococcus aureus bacteremia. 3. Cavitary pneumonia secondary to septic emboli from endocarditis. 4. Anemia of chronic disease status post 2 packed red blood cell transfusion. 5. Sepsis secondary to underlying endocarditis. 6. History of intravenous drug abuse. The patient is currently on vancomycin 1 g q.12 and some nebulizations. She continues to spike temperature. I wanted to do the CT scan yesterday to make sure that the pneumonia is not having any complication but she refusing. She also refusing to have any blood test drawn because she says she does not have any line and the one that she has is only for her medications. Will attempt to do blood cultures tomorrow. I have explained this to her and she seems to be willing to do that. cc: Gabo Oliveira MD
--- NOTE | 2016-11-06 16:07 | PROGRESS NOTE ---
DATE: 11/06/2016 PRESENT ILLNESS: The patient has methicillin-resistant Staphylococcal aureus tricuspid valve endocarditis with involvement of her lungs and resulting in a bibasilar pneumonia. MEDICATIONS: The patient is on p.o. rifampin and IV vancomycin. Day 1 of treatment will be the first day that the patient has a sterile blood culture. PHYSICAL EXAMINATION: Vital Signs: Temperature is 99.6 degrees. Earlier it went up to 101.3. Pulse is 110. Respirations 28. Blood pressure 100/61. Generally: This is an ill-appearing, young female who is in no acute distress. In general, she is very thin and looks malnourished but she is not eating well at all. Lungs: Clear to auscultation. Cardiovascular : Regular heart rate. I did not hear a heart murmur. Abdomen: Soft and nontender. Ear, nose and throat: The patient has poor oral hygiene with caries being present. LABORATORY AND X-RAY: [place] [address], hemoglobin 8.5, platelet count 130,000. Creatinine is 0.5. GFR is greater than 60. Vancomycin level is 9.5. ASSESSMENT AND PLAN: The plan is to continue treatment with vancomycin and rifampin. Repeat blood cultures have been drawn today. COMORBIDITIES: Include IV drug abuse and noncompliant with treatment of her endocarditis. cc: Agustín Baldwin MD MTDD
[2016-11-07] MEDS: DUONEB (A & A) INH SCH ×4 (03:40→20:16)
[2016-11-07] MEDS: KLONOPIN PO PRN ×2 (04:06→22:00)
[2016-11-07] MEDS: TYLENOL PO PRN ×2 (04:06→19:59)
[2016-11-07] MEDS: LOVENOX SUBQ SCH (06:26)
[2016-11-07] MEDS: PRILOSEC PO SCH (06:26)
[2016-11-07] MEDS: MUCOMYST 20% INH SCH ×2 (09:06→20:16)
[2016-11-07] MEDS: ICAR-C PLUS PO SCH (10:02)
[2016-11-07] MEDS: RIFAMPIN PO SCH (10:02)
[2016-11-07] MEDS: VANCOMYCIN 1 GM/NS 1 GM/250 ML IVPB IV SCH ×2 (10:02→21:52)
[2016-11-07] MEDS: SUBUTEX SL SCH ×3 (10:02→19:59)
[2016-11-07] MEDS: NS 1,000 ML IV SCH ×2 (10:02→15:32)
[2016-11-07 10:10] LABS: BASO% 0.7 % (0.0-0.8); EOS# 0.15 X1000 (0.0-0.7); EOS% 0.9 % (0.0-10.0); HEMATOCRIT 24.4 % (37.0-47.0); HEMOGLOBIN 7.5 g/dL (12.0-16.0); IMM GRAN# 0.09 X1000 (0.0-0.04); IMM GRAN% 0.5 % (0.0-0.5); LYMPH# 2.11 X1000 (1.2-3.4); LYMPH% 12.8 % (20.5-51.1); MANUAL DIFF NEEDED? YES; MCH 27.7 PG (27-31); MCHC 30.7 g/dL (33-37); MONO# 0.77 X1000 (0.11-0.59); MONO% 4.7 % (1.7-9.3); MPV 12.8 FL (7.4-10.4); NEUT% 80.4 % (42.2-75.2); PLT 222 X1000 (130-400); RBC 2.71 XMIL (4.2-5.4)
[2016-11-07 10:19] LABS: AGAP 14; ALBUMIN 2.1 g/dL (3.5-5.0); ALKALINE PHOSPHATASE 130 U/L (32-104); BUN 6 mg/dL (8-22); CALCIUM 7.7 mg/dL (8.8-10.2); CHLORIDE 97 mmol/L (98-107); COSMO 264; GOT 15 U/L (10-30); GPT 5 U/L (10-36); POTASSIUM 4.7 mmol/L (3.5-5.1); SODIUM 133 mmol/L (136-145); TCO2 22 mmol/L (25-35); TOTAL BILIRUBIN 0.59 mg/dL (0.20-1.00); TOTAL PROTEIN 6.5 g/dL (6.3-8.3)
[2016-11-07 10:28] LABS: BANDS 4 % (0-1); EOS 2 % (1-10); LYMPHS 12 % (21-51); MONO 4 % (1-9)
--- NOTE | 2016-11-07 11:07 | Diag Imaging Result Doc PS360 ---
EXAM: CHEST-PORTABLE HISTORY: decreased O2 sat TECHNIQUE: Portable upright COMPARISON: 11/03/2016 FINDINGS: Dense bilateral infiltrates remain in the mid and lower lungs. Small cavitary lesion in the upper outer right lung persists. There may also be an additional a cavity in the lower right lung within the dense infiltrate. There is a small right-sided pleural effusion. The apices remain clear. Heart is not enlarged. IMPRESSION: No interval improvement in the bilateral infiltrates. Electronically signed by Justin San 11/07/2016 11:04 AM
[2016-11-07] MEDS ORDERED: FERRLECIT 125 MG in NS 100 ML IV ONE (13:51)
--- NOTE | 2016-11-07 14:08 | PROGRESS NOTE ---
DATE: 11/07/2016 OBJECTIVE: Vital Signs: Blood pressure 96/64, heart rate of 104, respiratory rate is 16. Saturations are 98% on 2 liters. Cardiovascular: Regular rate and rhythm. Pulmonary: Bilateral breath sounds. Clear to auscultation. Gastrointestinal: Abdomen is soft, nontender, nondistended. Bowel sounds are positive. LABORATORY DATA: White count 16, hemoglobin and hematocrit of 7 and 24, platelets 222,000. Chemistries look okay. Sodium is 133. PROBLEM LIST: 1. Methicillin-resistant Staphylococcus aureus tricuspid endocarditis. Continue intravenous vancomycin and follow. Apparently, she had been refusing treatment, but she got labs today. She is still having some low-grade temperatures, which may be just related to the endocarditis. Repeat blood cultures have been ordered today. 2. Methicillin-resistant Staphylococcus aureus bacteremia as described. 3. Cavitary pneumonia. We will continue pulmonary toilet, also with Methicillin-resistant Staphylococcus aureus obviously on antibiotic treatment. 4. Anemia has dropped slowly. We may require a future transfusion. We will continue to monitor for now, and I am going to give her some iron and follow. DISPOSITION: She will need to complete her 6 weeks of antibiotics total inpatient because she is an IV drug user. cc: Lake Raymundo MD
[2016-11-07] MEDS: NICODERM PATCH TD PRN (22:00)
[2016-11-08] MEDS: VANCOMYCIN 1 GM/NS 1 GM/250 ML IVPB IV SCH ×2 (01:05→10:35)
[2016-11-08] MEDS: MYCOSTATIN SUSP PO SCH ×5 (01:58→19:49)
[2016-11-08] MEDS: DUONEB (A & A) INH SCH ×4 (03:25→19:40)
[2016-11-08] MEDS: DUONEB (A & A) INH PRN (05:30)
--- NOTE | 2016-11-08 06:54 | EKG Report ---
Test Performed on : 11/08/2016 06:22:42 AM Test Reason : Tachycardia Blood Pressure : / mmHG Vent. Rate : 135 BPM Atrial Rate : 135 BPM P-R Int : 132 ms QRS Dur : 076 ms QT Int : 266 ms P-R-T Axes : 052 113 -16 degrees QTc Int : 399 ms Sinus tachycardia. with fusion complexes Right axis deviation Low voltage QRS Nonspecific T wave abnormality Abnormal ECG When compared with ECG of 14-OCT-2016 00:31, fusion complexes are now present QRS axis shifted right ST no longer depressed in Anterior leads Nonspecific T wave abnormality no longer evident in Anterior leads Confirmed by Johana Rodriguez MD ([id number]) on 11/08/2016 8:21:38 AM
[2016-11-08] MEDS: LOVENOX SUBQ SCH (08:03)
[2016-11-08] MEDS: PRILOSEC PO SCH (08:03)
[2016-11-08] MEDS: MUCINEX PO SCH ×2 (08:03→19:48)
[2016-11-08] MEDS: MUCOMYST 20% INH SCH ×2 (09:27→19:40)
[2016-11-08] MEDS: KLONOPIN PO PRN (10:34)
[2016-11-08] MEDS: SUBUTEX SL SCH ×3 (10:34→19:48)
[2016-11-08] MEDS: ICAR-C PLUS PO SCH (10:35)
[2016-11-08] MEDS: RIFAMPIN PO SCH (10:35)
[2016-11-08] MEDS: NS 1,000 ML IV SCH ×2 (10:48→23:44)
[2016-11-08] MEDS ORDERED: GENTAMICIN IV PER PHARMACY MISC SCH (12:15)
[2016-11-08 14:12] LABS: HEMATOCRIT 22.2 % (37.0-47.0); HEMOGLOBIN 6.6 g/dL (12.0-16.0); MCH 26.9 PG (27-31); MCHC 29.7 g/dL (33-37); MCV 90.6 FL (81-99); MPV 12.1 FL (7.4-10.4); RBC 2.45 XMIL (4.2-5.4)
[2016-11-08 14:34] LABS: AGAP 13; BUN 6 mg/dL (8-22); CALCIUM 7.5 mg/dL (8.8-10.2); CHLORIDE 103 mmol/L (98-107); COSMO 278; POTASSIUM 4.4 mmol/L (3.5-5.1); SODIUM 139 mmol/L (136-145); TCO2 23 mmol/L (25-35)
--- NOTE | 2016-11-08 18:09 | PROGRESS NOTE ---
DATE: 11/08/2016 PRESENT ILLNESS: Patient has methicillin-resistant Staph aureus, tricuspid valve endocarditis with an associated pneumonia. MEDICATIONS: The patient is on p.o. rifampin and vancomycin. Day 1 of the treatment will be when the patient has sterile blood culture. PHYSICAL EXAMINATION: Vital Signs: Temperature is 98.5 degrees, pulse 113, respirations 16, blood pressure 96/55. General: This is an ill-appearing, young female who is dyspneic even at rest. Cardiovascular: Regular and rapid heart rate. Lungs: Bibasilar rales. Abdomen: Soft and nontender. LAB AND X-RAY: [place] [address], hemoglobin 6.6 and platelet count is 208,000. Creatinine is 0.6. GFR is greater than 60. Repeat blood cultures showing 1 of the blood cultures gram positive cocci are growing. ASSESSMENT AND PLAN: I agree with Dr. Raymundo adding gentamicin to the patient's current antibiotics of vancomycin and rifampin. The patient requested that she see Dr. Carpenter because she had an appointment with him which she is missing. I have put in a consult for [facility] to [facility] the patient. COMORBIDITIES: IV drug abuse and noncompliance with treatment. cc: Agustín Baldwin MD
[2016-11-08] MEDS: GENTAMICIN IV SCH (18:56)
[2016-11-08] MEDS: NS IV SCH (18:56)
[2016-11-08] MEDS: TUSSIONEX LIQUID PO SCH (19:46)
[2016-11-08] MEDS: TYLENOL PO PRN (20:01)
[2016-11-08] MEDS: VANCOMYCIN 1,200 MG in NS 250 ML IV SCH (23:44)
[2016-11-09] MEDS: MUCINEX PO SCH ×3 (03:22→22:22)
[2016-11-09] MEDS: DUONEB (A & A) INH SCH ×4 (03:49→20:06)
[2016-11-09] MEDS: MYCOSTATIN SUSP PO SCH ×5 (05:55→22:22)
[2016-11-09] MEDS: SUBUTEX SL SCH ×4 (05:56→22:22)
[2016-11-09 06:27] LABS: BASO% 0.8 % (0.0-0.8); EOS# 0.16 X1000 (0.0-0.7); EOS% 1.3 % (0.0-10.0); HEMATOCRIT 21.5 % (37.0-47.0); HEMOGLOBIN 6.5 g/dL (12.0-16.0); IMM GRAN# 0.05 X1000 (0.0-0.04); IMM GRAN% 0.4 % (0.0-0.5); LYMPH# 1.77 X1000 (1.2-3.4); MANUAL DIFF NEEDED? YES; MCH 27.4 PG (27-31); MCHC 30.2 g/dL (33-37); MCV 90.7 FL (81-99); MONO# 0.71 X1000 (0.11-0.59); MONO% 5.6 % (1.7-9.3); MPV 12.5 FL (7.4-10.4); NEUT% 77.9 % (42.2-75.2); PLT 185 X1000 (130-400); RBC 2.37 XMIL (4.2-5.4)
[2016-11-09] MEDS: TUSSIONEX LIQUID PO SCH ×2 (06:37→18:35)
[2016-11-09] MEDS: PRILOSEC PO SCH (06:39)
[2016-11-09] MEDS: LOVENOX SUBQ SCH (06:39)
[2016-11-09 06:44] LABS: AGAP 12; BUN 5 mg/dL (8-22); CALCIUM 7.5 mg/dL (8.8-10.2); CHLORIDE 100 mmol/L (98-107); COSMO 265; POTASSIUM 4.2 mmol/L (3.5-5.1); SODIUM 133 mmol/L (136-145); TCO2 21 mmol/L (25-35)
[2016-11-09 07:15] LABS: BANDS 2 % (0-1); LYMPHS 6 % (21-51); MONO 2 % (1-9)
[2016-11-09] MEDS: RIFAMPIN PO SCH (09:10)
[2016-11-09] MEDS: ICAR-C PLUS PO SCH (09:10)
[2016-11-09] MEDS: NS 1,000 ML IV SCH ×2 (09:18→22:23)
--- NOTE | 2016-11-09 09:27 | Diag Imaging Result Doc PS360 ---
EXAM: CT THORAX W/O CONTRAST INDICATION: Septic pulmonary emboli TECHNIQUE: Dose reduction protocol was used. COMPARISON: 10/01/2016 FINDINGS: There are multiple cavitary lesions throughout both lungs compatible with a history of septic emboli related to infectious endocarditis. Generally, the lesions have increased in size and number during the interval. More of the lesions exhibit cavitation as compared to the previous study. There are a few lesions that appear to have improved during the interval with less surrounding inflammatory changes, however, mainly at the lung apices. There is a large right pleural effusion and a small left effusion with associated basilar atelectasis. The right effusion is larger than the previous study. Shotty mediastinal lymph nodes, a few of which exhibit calcification suggesting prior granulomatous disease, appear to be stable given the limitations of an unenhanced study. There is a small amount of pericardial fluid that is stable. IMPRESSION: 1.Numerous cavitary lesions throughout both lungs consistent with a history of septic pulmonary emboli with mixed changes as detailed above. 2.Large right pleural effusion and small left effusion with the right effusion having increased in size during the interval. Electronically signed by Olvin Dietrich 11/09/2016 9:25 AM
[2016-11-09] MEDS: MUCOMYST 20% INH SCH ×2 (10:01→20:04)
[2016-11-09] MEDS: VANCOMYCIN 1,200 MG in NS 250 ML IV SCH ×2 (10:44→22:50)
--- NOTE | 2016-11-09 13:10 | CONSULTATION ---
DATE OF CONSULTATION: 11/09/2016 REFERRING PHYSICIAN: Dr. Raymundo. CHIEF COMPLAINT: Evaluation for septic emboli, pleural effusion in a patient with infective endocarditis. HISTORY OF PRESENTING ILLNESS: This is a 30-year-old female with a recent diagnosis of infective endocarditis and antibiotic therapy she mentioned for the last 10 days. Had thoracentesis earlier in October 2016 and now she has reaccumulation on chest CT scan showing septic emboli still. PAST MEDICAL HISTORY: Includes again infective endocarditis, recent delivery end of September 2016, IV drug abuse, the infective endocarditis is related to that practice. PAST SURGICAL HISTORY: C section surgery x4. SOCIAL HISTORY: IV drug abuse and active smoker. Recent baby delivery. She is . FAMILY HISTORY: Hypertension, COPD. REVIEW OF SYSTEMS: As detailed in history of presenting illness, otherwise noncontributory. ALLERGIES: She has no known drug allergies. MEDICATIONS: Medications in the hospital were reviewed and they include nebulized treatment, Subutex, Tussionex, Klonopin, gentamicin, vancomycin, NicoDerm patch, Zofran, Prilosec, rifampin. PHYSICAL EXAMINATION: General Examination: Awake. Communicative. Underweight. Vital Signs: Noted. Head and Neck: Examined. Trachea midline. Chest exam: Few crackles at the bases. Cardiac Examination: S1, S2. Abdomen: Nontender. Limbs: No pedal edema. Neurologic: Awake, communicative. LABS AND INVESTIGATIONS: CBC, CMP reviewed. WBCs 12.62. Creatinine 0.5. Blood cultures showing gram-positive cocci. Chest CT scan reviewed. ASSESSMENT AND PLAN: 30-year-old female, past medical history as above and now has. 1. Septic emboli. 2. Pleural effusion reaccumulating. Had thoracentesis earlier in October. 3. Infective endocarditis related to IV drug abuse. PLAN: 1. Antibiotics per ID. 2. Security Assessor following and appreciated. 3. Thoracentesis is planned. 4. Improvement of septic emboli and pleural effusion will depend on the resolution of infective endocarditis. Thank you for the courtesy of this consultation. Case discussed with Dr. Gage Raymundo. cc: Sarai Wan MD
[2016-11-09] MEDS: TYLENOL PO PRN (13:55)
--- NOTE | 2016-11-09 14:55 | CONSULTATION ---
DATE OF CONSULTATION: 11/09/2016 REQUESTING PHYSICIAN: Hospitalist Service. REASON FOR CONSULTATION: Patient with tricuspid valve endocarditis, septicemia , and MRSA. HISTORY OF PRESENT ILLNESS: Ms. Kirk is an unfortunate 30-year-old female who is known to the cardiology service. She has been seen on 2 separate occasions by the cardiology group; first on 10/03/[address] Quinn Reese and then on 10/14/[address] Carpenter. The patient was admitted at this particular time on 10/29/2016 because of increasing symptoms of dyspnea, cough, malaise, dizziness, and swelling. The patient on initial evaluation demonstrated a chest x-ray that showed bilateral pulmonary infiltrates which at that particular time appeared to be a progression of the initial abnormalities noted on previous admissions. She had multiple blood cultures positive for Staphylococcus aureus. She has demonstrated cavitary lesions in the lungs. Unfortunately the patient had interrupted her treatments. First she was admitted between 09/26/2016 through 10/04/2016 at the time of her delivery; she had a section and delivered a child. At that time they found the bacterial endocarditis involving the tricuspid valve. In fact, the transesophageal echocardiogram was positive for vegetation and disruption of the tricuspid valve. She left against medical advice and was readmitted from through 10/17/2016 and treated again and again she left against medical advice and was readmitted on 10/29/2016 for the same basic condition. PAST MEDICAL HISTORY: Her history is positive for previous pregnancies, a total of 4. She has been a smoker of cigarettes for a long time. HOME MEDICATIONS: Her home medications at the time of the present admission were buprenorphine (Subutex) 1 tablet three times a day. Right now she is getting vancomycin 1200 mg every 12 hours. She is also getting omeprazole, gentamicin 270 mg every 24 hours, and rifampin 600 mg daily. She is also taking an inhalers, omeprazole 20 mg, nicotine patches, and Nystatin. REVIEW OF SYSTEMS: Noncontributory. This is a recurrent admission to the hospital within the past 6 weeks. PHYSICAL EXAMINATION: VITAL SIGNS: Blood pressure is 92/65, pulse 106, respirations 16, and temperature 94. GENERAL: She is awake, alert, and appears to be malnourished. CHEST: Diminished breath sounds bilaterally. CARDIOVASCULAR: Heart sounds are tachycardic and irregular. She does have a right-sided gallop. I do not hear any definite murmur. ABDOMEN: Nontender and soft. EXTREMITIES: The extremities show trace edema. Pulses are diminished. NEUROLOGICAL: She is moves all extremities. LABORATORY DATA: White count is 12,620, hemoglobin 6.5, and hematocrit 21.5. Sodium is 133, potassium 4.2, BUN 5, and creatinine 0.5. C-reactive protein is 257. Sedimentation rate is 190. ProBNP is 2216. IMPRESSION: 1. Patient who has septicemia, Methicillin-resistant Staphylococcal Aureus, 2. tricuspid valve endocarditis, and secondary Congestive heart failure ( diastolic dysfunction,sepsis). 3. multiple septic pulmonary emboli with cavitations. MRSA Pneumonia, possible empyema. My concern is that she may have developed empyema and this may need to be drained. I will discuss this with the primary service. From a cardiology viewpoint this patient is not a surgical candidate. At this point, she is too sick to even dream of putting her under general anesthesia and removing the tricuspid valve. That would have to be a major decision probably best made in [place]. We will contact the surgeons over there and find out if they have any thoughts about this case. Thank you again for the opportunity to participate in her evaluation. cc: Roe Maldonado MD [facility]ITAL[facility]
[2016-11-09] MEDS ORDERED: MEGACE LIQUID PO ONE (16:26)
[2016-11-09] MEDS: NS IV SCH (16:59)
[2016-11-09] MEDS: GENTAMICIN IV SCH (16:59)
[2016-11-09] MEDS: MEGACE LIQUID PO SCH (22:22)
[2016-11-09] MEDS: KLONOPIN PO PRN (22:50)
[2016-11-10] MEDS: TYLENOL PO PRN ×2 (00:58→20:09)
[2016-11-10] MEDS: DUONEB (A & A) INH SCH ×4 (04:10→20:30)
[2016-11-10] MEDS: TUSSIONEX LIQUID PO SCH ×2 (06:39→18:23)
[2016-11-10] MEDS: PRILOSEC PO SCH (06:39)
[2016-11-10] MEDS: MUCOMYST 20% INH SCH ×2 (07:39→20:30)
[2016-11-10 08:12] LABS: HEMATOCRIT 25.7 % (37.0-47.0); HEMOGLOBIN 7.9 g/dL (12.0-16.0); MCH 27.6 PG (27-31); MCHC 30.7 g/dL (33-37); MCV 89.9 FL (81-99); MPV 11.8 FL (7.4-10.4); RBC 2.86 XMIL (4.2-5.4)
[2016-11-10 08:14] LABS: INR 1.26; PROTIME 13.4 Seconds (9.2-11.7); PTT 29.4 Seconds (22.0-36.0)
[2016-11-10 08:32] LABS: AGAP 11; BUN 5 mg/dL (8-22); CALCIUM 7.6 mg/dL (8.8-10.2); CHLORIDE 103 mmol/L (98-107); COSMO 271; POTASSIUM 3.9 mmol/L (3.5-5.1); SODIUM 137 mmol/L (136-145); TCO2 23 mmol/L (25-35)
[2016-11-10] MEDS: RIFAMPIN PO SCH (09:39)
[2016-11-10] MEDS: MEGACE LIQUID PO SCH ×2 (09:39→20:10)
[2016-11-10] MEDS: ICAR-C PLUS PO SCH (09:39)
[2016-11-10] MEDS: SUBUTEX SL SCH ×3 (09:39→20:16)
[2016-11-10] MEDS: MUCINEX PO SCH ×2 (09:39→20:09)
[2016-11-10] MEDS: MYCOSTATIN SUSP PO SCH ×4 (09:40→20:11)
--- NOTE | 2016-11-10 11:28 | Diag Imaging Result Doc PS360 ---
EXAM: CHEST-2 VIEWS HISTORY: TO FOLLOW THORACENTESIS TECHNIQUE: Inspiratory expiratory PA COMMENT: There is no evidence of pneumothorax. The right pleural effusion has diminished following thoracentesis. The lungs are better expanded. There are numerous septic emboli with air-fluid levels bilaterally particularly in the right upper and lower lobes. IMPRESSION: Improved right pleural effusion and improved expansion of both lungs. Electronically signed by Michael Pearson 11/10/2016 11:25 AM
--- NOTE | 2016-11-10 11:33 | Diag Imaging Result Doc PS360 ---
EXAM: THORACENTESIS W/IMAGE GUIDANCE HISTORY: pleural fluid TECHNIQUE: Ultrasound-guided thoracentesis on the right COMMENT: The pleural fluid collection of is again demonstrated on the right side. The risks and benefits of the procedure including the possibility of pneumothorax, bleeding, infection or reaction to lidocaine was discussed with the patient and she agreed to the procedure. Following sterile preparation the skin and administration 1% lidocaine to the skin and deeper soft tissues the thoracentesis catheter was placed inferiorly posteriorly over the right hemithorax and subsequently 1.4 L of grossly blood-tinged fluid was drained. The patient tolerated the procedure well. There are no immediate complications. IMPRESSION: Successful right thoracentesis. Electronically signed by Michael Pearson 11/10/2016 11:30 AM
[2016-11-10 12:04] LABS: SPECIMEN PLEURAL FLUID
[2016-11-10 12:05] LABS: DIFF NEEDED? YES; WBC BF 3112 /cumm
[2016-11-10 12:09] LABS: MONOS 12 %; POLYS 88 %
[2016-11-10 13:01] LABS: TOTAL PROT BODY FLUID 3.9 g/dL
[2016-11-10] MEDS ORDERED: NS 1,000 ML IV SCH (14:01)
[2016-11-10] MEDS: VANCOMYCIN 1,200 MG in NS 250 ML IV SCH ×2 (15:07→22:45)
--- NOTE | 2016-11-10 16:43 | PROGRESS NOTE ---
DATE: 11/10/2016 PRESENT ILLNESS: The patient has a methicillin-resistant Staph aureus tricuspid valve endocarditis with an associated pneumonia. MEDICATIONS: Patient is on p.o. rifampin, IV vancomycin, and IV gentamicin. PHYSICAL EXAMINATION: Vital Signs: Temperature is 98.8 degrees, pulse 106, respirations 20, blood pressure is 103/61. General: This is an ill-appearing, young female who is dyspneic even at rest. Cardiovascular: Regular and rapid heart rate. Lungs: There were bibasilar rales. Abdomen: Soft and nontender. Neurologic: Patient is alert. She can move her extremities. LAB AND RADIOLOGY: The patient's CBC today shows a white count of 13,530, hemoglobin 7.9, and platelet count 258,000. Creatinine is 0.5. GFR is greater than 60. The pleural fluid on the right had 3112 white cells. On Gram stain, no bacteria were seen. Chest x-ray shows a decrease in the right pleural effusion following thoracentesis. ASSESSMENT AND PLAN: Patient has endocarditis. I agree with treating with a combination of vancomycin, gentamicin, and rifampin. I have asked the microbiology laboratory to send off the MRSA isolate to test it against rifampin. COMORBIDITY: She is an IV drug abuser and in the past has been noncompliant with treatment of her endocarditis. cc: Agustín Baldwin MD
[2016-11-10] MEDS: GENTAMICIN IV SCH (18:23)
[2016-11-10] MEDS: NS IV SCH (18:23)
[2016-11-11] MEDS: KLONOPIN PO PRN (00:57)
[2016-11-11] MEDS: NICODERM PATCH TD PRN (00:57)
[2016-11-11] MEDS: DUONEB (A & A) INH SCH ×4 (04:09→21:25)
[2016-11-11] MEDS: TYLENOL PO PRN (04:20)
[2016-11-11] MEDS: PRILOSEC PO SCH (06:40)
[2016-11-11] MEDS: TUSSIONEX LIQUID PO SCH ×3 (08:21→20:30)
[2016-11-11] MEDS: SUBUTEX SL SCH ×3 (08:21→20:30)
[2016-11-11] MEDS: MYCOSTATIN SUSP PO SCH ×4 (08:21→20:30)
[2016-11-11] MEDS: ICAR-C PLUS PO SCH (08:21)
[2016-11-11] MEDS: RIFAMPIN PO SCH (08:21)
[2016-11-11] MEDS: MEGACE LIQUID PO SCH ×2 (08:21→20:30)
[2016-11-11] MEDS: MUCINEX PO SCH ×2 (08:21→20:30)
[2016-11-11] MEDS: MUCOMYST 20% INH SCH (09:30)
[2016-11-11 10:47] LABS: HEMATOCRIT 26.3 % (37.0-47.0); HEMOGLOBIN 7.9 g/dL (12.0-16.0); MCH 27.3 PG (27-31); MPV 11.9 FL (7.4-10.4); RBC 2.89 XMIL (4.2-5.4)
[2016-11-11 11:13] LABS: AGAP 15; BUN 4 mg/dL (8-22); CALCIUM 7.8 mg/dL (8.8-10.2); CHLORIDE 100 mmol/L (98-107); COSMO 275; POTASSIUM 3.7 mmol/L (3.5-5.1); SODIUM 139 mmol/L (136-145); TCO2 24 mmol/L (25-35)
[2016-11-11] MEDS: VANCOMYCIN 1,200 MG in NS 250 ML IV SCH ×2 (11:34→21:09)
[2016-11-11] MEDS ORDERED: ATIVAN IM ONE (15:35)
[2016-11-11] MEDS ORDERED: ATIVAN IV ONE (15:35)
[2016-11-11] MEDS ORDERED: MORPHINE IV ONE (15:36)
[2016-11-11] MEDS ORDERED: MORPHINE IM ONE (15:36)
--- NOTE | 2016-11-11 15:53 | PROGRESS NOTE ---
DATE: 11/11/2016 SUBJECTIVE: The patient is in the process, she has lost her IV access and is upset about trying get other IV access. She asked for oral antibiotics which we discussed multiple times in the past as not an option for her. Other than that, she feels better. OBJECTIVE: Blood pressure 95/59, heart rate 105, respiratory rate 17, temperature 99.1 degrees, 95% on 2 L.Cardiovascular: Regular rate and rhythm. Pulmonary: Bilateral breath sounds. Clear to auscultation. GI: Soft, nontender, nondistended. Bowel sounds are LABS: Blood cultures today are so far no growth. There were drawn this morning. Pleural fluid is negative. White count is 12, hemoglobin and hematocrit 7.9, 26 which is up from yesterday. Platelets 228,000. Basic was negative. PROBLEM LIST: 1. MRSA endocarditis with persistent bacteremia. Hopefully this level of bacteremia will be diminished and we can talk about putting in a more permanent line, at least semi permanently. She cannot go home with IV access due to her high concern over drug use. 2. Anemia that appears to be stable since last transfusion. 3. Cavitary MRSA pneumonia. She is on vancomycin, rifampin and gentamicin and she seems to be stable. DISPOSITION: Pending her persistent bacteremia. cc: Lake Raymundo MD
[2016-11-11] MEDS: NS IV SCH (18:20)
[2016-11-11] MEDS: GENTAMICIN IV SCH (18:20)
[2016-11-12] MEDS: DUONEB (A & A) INH SCH ×4 (04:13→21:10)
[2016-11-12 05:36] LABS: AGAP 19; BUN 5 mg/dL (8-22); CHLORIDE 98 mmol/L (98-107); COSMO 272; POTASSIUM 4.7 mmol/L (3.5-5.1); SODIUM 137 mmol/L (136-145); TCO2 20 mmol/L (25-35)
[2016-11-12] MEDS: PRILOSEC PO SCH (06:28)
[2016-11-12] MEDS: VANCOMYCIN 1,200 MG in NS 250 ML IV SCH ×2 (06:37→16:19)
[2016-11-12] MEDS: ICAR-C PLUS PO SCH (10:41)
[2016-11-12] MEDS: RIFAMPIN PO SCH (10:41)
[2016-11-12] MEDS: SUBUTEX SL SCH ×3 (10:41→22:15)
[2016-11-12] MEDS: MUCINEX PO SCH ×2 (10:42→22:15)
[2016-11-12] MEDS: MEGACE LIQUID PO SCH ×2 (10:42→22:15)
[2016-11-12] MEDS: MYCOSTATIN SUSP PO SCH ×5 (10:42→22:15)
[2016-11-12] MEDS: TUSSIONEX LIQUID PO SCH ×2 (10:57→22:15)
[2016-11-12] MEDS: MUCOMYST 20% INH SCH ×2 (11:33→21:10)
--- NOTE | 2016-11-12 16:02 | PROGRESS NOTE ---
DATE: 11/12/2016 SUBJECTIVE: The patient has no focal complaints. OBJECTIVE: Vital signs: Blood pressure 95/63, heart rate of 100, respiratory rate 20, temperature 98, 90% on room air. Cardiovascular: Regular rate and rhythm, 3/6 holosystolic murmur. GI: Soft, nontender, nondistended. Bowel sounds are positive. Pulmonary: Decreased breath sounds at both bases. LABORATORY DATA: Today, basic is unremarkable. Microbiology today so far seems intact. Her most recent blood cultures are negative, but they were done this yesterday. PROBLEM LIST: 1. Methicillin-resistant Staphylococcus aureus, tricuspid endocarditis. Hopefully, this set of blood cultures is clear. Unfortunately, she has had very difficult time with IV access. We are continuing IV antibiotics as long as we can tolerate them. We will get a PICC line in for treatment as soon as we feel the blood cultures are clear, hopefully as soon as tomorrow. 2. Anemia has been stable. We will check her blood count again tomorrow and decide about transfusion at this point. 3. Staph cavitary pneumonia, status post thoracentesis. It was felt to be an exudative parapneumonic effusion, but there is no growth from the cultures at this point, and I do not think decortication or anything is recommended at this time and we can just pursue treatment with IV antibiotics, which she has been getting for her endocarditis. Further recommendations per Pulmonary. 4. Disposition. Obviously difficult situation. We cannot discharge her home due to high risk of IV drug use with a long-term catheter. At this point, she is continuing to stay as an inpatient. She will need 6 weeks of IV antibiotics once her blood cultures clear. We will continue to follow. cc: Lake Raymundo MD
[2016-11-12] MEDS: GENTAMICIN IV SCH (19:25)
[2016-11-12] MEDS: NS IV SCH (19:25)
[2016-11-13] MEDS: VANCOMYCIN 1,200 MG in NS 250 ML IV SCH ×2 (03:11→15:24)
[2016-11-13] MEDS: DUONEB (A & A) INH SCH ×4 (03:25→19:40)
[2016-11-13] MEDS: ICAR-C PLUS PO SCH (08:37)
[2016-11-13] MEDS: PRILOSEC PO SCH (08:37)
[2016-11-13] MEDS: SUBUTEX SL SCH ×3 (08:38→20:39)
[2016-11-13] MEDS: MEGACE LIQUID PO SCH ×2 (08:38→20:38)
[2016-11-13] MEDS: TUSSIONEX LIQUID PO SCH ×2 (08:38→23:14)
[2016-11-13] MEDS: MUCINEX PO SCH ×2 (08:38→20:39)
[2016-11-13] MEDS: RIFAMPIN PO SCH (08:38)
[2016-11-13] MEDS: MYCOSTATIN SUSP PO SCH ×4 (09:25→20:41)
[2016-11-13] MEDS: MUCOMYST 20% INH SCH ×2 (09:51→19:40)
[2016-11-13 10:23] LABS: AGAP 14; BUN 6 mg/dL (8-22); CHLORIDE 100 mmol/L (98-107); COSMO 271; POTASSIUM 4.7 mmol/L (3.5-5.1); SODIUM 137 mmol/L (136-145); TCO2 23 mmol/L (25-35)
[2016-11-13] MEDS: TYLENOL PO PRN (10:25)
[2016-11-13 11:23] LABS: HEMATOCRIT 26.3 % (37.0-47.0); HEMOGLOBIN 7.9 g/dL (12.0-16.0); MCH 27.7 PG (27-31); MCV 92.3 FL (81-99); MPV 12.5 FL (7.4-10.4); RBC 2.85 XMIL (4.2-5.4)
--- NOTE | 2016-11-13 16:06 | PROGRESS NOTE ---
DATE: 11/13/2016 SUBJECTIVE: The patient is resting comfortably in bed. She has no complaints. She states that she is having regular bowel movements, ambulating. OBJECTIVE: Vital Signs: Temperature 99 degrees, blood pressure 97/56, heart rate 105, respirations 18, O2 saturations 95% on 2 L nasal cannula. General: This is a young female lying in bed in no acute distress. Head: Normocephalic, atraumatic. Heart: S1, S2. Normal. Tachycardic. Lungs: Clear to auscultation bilaterally. Abdomen: Positive bowel sounds. Soft, nontender, nondistended. Extremities: No edema, no cyanosis, no calf tenderness. Neurologic: The patient is alert and oriented x3. LABS: White blood cell count 12, hemoglobin 7.9, hematocrit 26, platelets 269,000, sodium 137, potassium 4.7, chloride 100, CO2 23, BUN 6, creatinine 0.5, glucose 88, calcium 8. ASSESSMENT AND PLAN: 1. 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 Continue on the current IV antibiotic regimen. So far the repeat blood cultures drawn on November [address] Baldwin is following. 2. Anemia. The patient's hemoglobin and hematocrit are low but stable. Will continue to monitor this closely. 3. Cavitary pneumonia. Continue on the current IV antibiotic therapy. 4. History of intravenous drug abuse. Aware. cc: Otilia Whaley MD
[2016-11-13] MEDS: NS IV SCH (18:25)
[2016-11-13] MEDS: GENTAMICIN IV SCH (18:25)
--- NOTE | 2016-11-13 19:25 | PROGRESS NOTE ---
DATE: 11/13/2016 CONCLUSION: The patient has methicillin-resistant Staph aureus tricuspid valve endocarditis with an associated pneumonia and pleural effusion. MEDICATIONS: The patient is receiving p.o. rifampin, IV vancomycin and IV gentamicin. PHYSICAL EXAMINATION: Vital Signs: Temperature is 98.6 degrees, pulse 109, respirations 18, blood pressure 92/64. General: This is a chronically ill-appearing, somewhat malnourished young female who appears to be much better than she was earlier. She does not look dyspneic at rest. Cardiovascular: Heart rate was regular and rapid. Lungs: Clear to auscultation. Abdomen: Soft and nontender. LABORATORY AND X-RAY: The patient's blood cultures from the 8th are negative at 48 hours. CBC shows a white count of 12,000, hemoglobin 7.9 and platelet count of 269,000. Creatinine is 0.5. GFR is greater than 60. A random gentamicin level was 2.4. Pleural fluid culture was negative. The white cell count was 3112. ASSESSMENT AND PLAN: 1. I plan to continue with the patient's current antibiotics. I am waiting for the results from the Microbiology Lab about whether the patient's isolate is susceptible still to rifampin. In the meanwhile, I am going to order a liver profile tomorrow. I talked to the patient about getting her PICC put in. She said she did not want to do it today or tomorrow. The plan will be to do it on Sunday. 2. Comorbidity: She is an IV drug abuser and she has been noncompliant with the treatment of her endocarditis. cc: Agustín Baldwin MD
[2016-11-13] MEDS: KLONOPIN PO PRN (23:14)
[2016-11-14] MEDS: VANCOMYCIN 1,200 MG in NS 250 ML IV SCH (02:43)
[2016-11-14] MEDS: TYLENOL PO PRN ×2 (02:51→20:49)
[2016-11-14] MEDS: DUONEB (A & A) INH SCH ×4 (03:25→22:12)
[2016-11-14] MEDS: PRILOSEC PO SCH (06:26)
[2016-11-14 07:16] LABS: BASO% 0.2 % (0.0-0.8); EOS# 0.34 X1000 (0.0-0.7); EOS% 2.1 % (0.0-10.0); HEMATOCRIT 27.3 % (37.0-47.0); HEMOGLOBIN 8.2 g/dL (12.0-16.0); IMM GRAN# 0.06 X1000 (0.0-0.04); IMM GRAN% 0.4 % (0.0-0.5); LYMPH# 1.53 X1000 (1.2-3.4); LYMPH% 9.2 % (20.5-51.1); MANUAL DIFF NEEDED? YES; MCV 89.8 FL (81-99); MONO# 0.83 X1000 (0.11-0.59); MPV 11.9 FL (7.4-10.4); NEUT% 83.1 % (42.2-75.2); PLT 302 X1000 (130-400); RBC 3.04 XMIL (4.2-5.4)
[2016-11-14 07:21] LABS: AGAP 13; BUN 5 mg/dL (8-22); CALCIUM 8.2 mg/dL (8.8-10.2); CHLORIDE 100 mmol/L (98-107); COSMO 273; POTASSIUM 4.6 mmol/L (3.5-5.1); SODIUM 138 mmol/L (136-145); TCO2 25 mmol/L (25-35)
[2016-11-14 07:38] LABS: LYMPHS 9 % (21-51); MONO 7 % (1-9)
[2016-11-14] MEDS: ICAR-C PLUS PO SCH (10:09)
[2016-11-14] MEDS: RIFAMPIN PO SCH (10:10)
[2016-11-14] MEDS: MUCINEX PO SCH ×2 (10:10→20:45)
[2016-11-14] MEDS: MYCOSTATIN SUSP PO SCH ×4 (10:10→20:46)
[2016-11-14] MEDS: MEGACE LIQUID PO SCH ×2 (10:10→20:45)
[2016-11-14] MEDS: SUBUTEX SL SCH ×3 (10:10→20:45)
[2016-11-14] MEDS: TUSSIONEX LIQUID PO SCH ×2 (10:10→20:44)
[2016-11-14] MEDS: MUCOMYST 20% INH SCH ×2 (10:26→19:52)
--- NOTE | 2016-11-14 16:25 | PROGRESS NOTE ---
DATE: 11/14/2016 SUBJECTIVE: The patient is resting comfortably in bed. No acute events noted overnight. OBJECTIVE: Vital Signs: Temperature 97 degrees, blood pressure 88/62, heart rate 98, respirations 16, O2 saturations 98% on 2 L nasal cannula. General: This is a young female, lying in bed, in no acute distress. Head: Normocephalic, atraumatic. Heart: S1, S2. Normal. Tachycardic. Lungs: Clear to auscultation bilaterally. Abdomen: Positive bowel sounds. Soft, nontender, nondistended. Extremities: No edema. No cyanosis. No calf tenderness. Neurologic: The patient is alert and oriented x3. LABS: White blood cell count 16, hemoglobin 8.2, hematocrit 27, platelets 302,000. Sodium 138, potassium 4.6, chloride 100, CO2 25, BUN 5, creatinine 0.6, glucose 91. ASSESSMENT AND PLAN: 1. Tricuspid valve endocarditis secondary to Methicillin-resistant Staphylococcus aureus. Continue on IV antibiotic therapy. So far the repeat blood cultures remain negative. Dr. Baldwin is following. 2. Leukocytosis. The patient's white blood cell count is elevated again today. Continue on the current antibiotic therapy. 3. Cavitary pneumonia secondary to Methicillin-resistant Staphylococcus aureus. Continue on the current IV antibiotic regimen. 4. DVT prophylaxis. Will start the patient on Lovenox. cc: Otilia Whaley MD
[2016-11-14] MEDS: LOVENOX SUBQ SCH ×2 (16:50→17:00)
[2016-11-14] MEDS ORDERED: VANCOMYCIN 1 GM/NS 1 GM/250 ML IVPB IV SCH ×2 (17:00→18:00)
[2016-11-14] MEDS: NS IV SCH (18:30)
[2016-11-14] MEDS: GENTAMICIN IV SCH (18:30)
[2016-11-14] MEDS: KLONOPIN PO PRN (18:52)
[2016-11-14] MEDS: NICODERM PATCH TD PRN (18:53)
[2016-11-14 21:19] VITALS: BP 95/67
--- NOTE | 2016-11-21 16:35 | DISCHARGE SUMMARY ---
ADMISSION DATE: 10/29/2016 DISCHARGE DATE: 11/15/2016 FINAL DISCHARGE DIAGNOSES: 1. Tricuspid valve endocarditis secondary to Methicillin-resistant Staphylococcus aureus. 2. Septic pulmonary emboli secondary to Methicillin-resistant Staphylococcus aureus. 3. Pneumonia secondary to Methicillin-resistant Staphylococcus aureus. 4. Iron-deficiency anemia. 5. IV drug abuse. CONSULTATIONS REQUESTED DURING THIS HOSPITAL STAY: 1. Infectious Disease consultation with Dr. Baldwin. 2. Cardiology consultation with Dr. Maldonado. 3. Pulmonary consultation with Dr. Wan. IMAGING PERFORMED DURING THIS HOSPITAL STAY: 1. CT of the chest performed on 11/09/2016 that revealed septic pulmonary emboli as well as multiple cavitary lesions in both lungs. 2. 2-dimensional echocardiogram which revealed 2 large vegetations on the anterior tricuspid valve as well as the septal valve with severe tricuspid regurgitation. HOSPITAL COURSE: Ms. Kirk is a 31-year-old female with a history of IV drug abuse who presented to the ER with fever and chills. The patient has known tricuspid about endocarditis secondary to MRSA however the patient left the hospital during her last hospitalization against medical advice. The patient was admitted to the hospitalist service. Cardiology, Pulmonary Medicine and Infectious Disease services were consulted. The patient was also alicia cultured. The blood cultures did come back positive for MRSA. The patient did have a CT of the chest done that revealed multiple cavitary lesions in both lungs as well as septic pulmonary emboli. The patient was started on IV vancomycin. The patient also had an echocardiogram done that did reveal 2 large vegetations on the tricuspid valve. Over the course of the hospitalization, the patient received IV antibiotic therapy. However on November 15, 2016 the patient decided to leave the hospital against medical advice before her treatment was complete. The patient was told that she runs the risk of severe disability and even if she leaves the hospital before her treatment was complete. The patient stated that she was willing to take the risk and decided to leave the hospital against medical advice. cc: Otilia Whaley MD
== END 2016-11-15 02:15 | disposition left against medical advice (07) ==
LOC: ED 02:28 → SUATTDRO 06:29 → 3N 06:29
PROVIDERS: ATTEND Internal Medicine

== ENCOUNTER 2016-12-06 23:26 | Inpatient (IN) ==
--- NOTE | 2016-12-07 00:49 | EKG Report ---
Test Performed on : 12/07/2016 00:45:50 AM Test Reason : sob Blood Pressure : / mmHG Vent. Rate : 094 BPM Atrial Rate : 094 BPM P-R Int : 156 ms QRS Dur : 078 ms QT Int : 370 ms P-R-T Axes : 045 048 056 degrees QTc Int : 462 ms Normal sinus rhythm. Cannot rule out Inferior infarct , age undetermined Abnormal ECG When compared with ECG of 08-NOV-2016 06:22, fusion complexes are no longer present QRS axis shifted left Unconfirmed Result
[2016-12-07 01:19] LABS: AGAP 15; ALBUMIN 2.5 g/dL (3.5-5.0); ALKALINE PHOSPHATASE 143 U/L (32-104); BUN 11 mg/dL (8-22); CALCIUM 8.2 mg/dL (8.8-10.2); CHLORIDE 101 mmol/L (98-107); COSMO 272; GOT 6 U/L (10-30); GPT 8 U/L (10-36); POTASSIUM 3.2 mmol/L (3.5-5.1); SODIUM 136 mmol/L (136-145); TCO2 21 mmol/L (25-35); TOTAL PROTEIN 7.3 g/dL (6.3-8.3)
[2016-12-07 01:59] LABS: MANUAL DIFF NEEDED? NO
[2016-12-07 02:09] LABS: BASO% 0.5 % (0.0-0.8); EOS% 0.7 % (0.0-10.0); HEMATOCRIT 34.1 % (37.0-47.0); HEMOGLOBIN 10.3 g/dL (12.0-16.0); IMM GRAN% 0.3 % (0.0-0.5); LYMPH# 1.85 X1000 (1.2-3.4); LYMPH% 15.5 % (20.5-51.1); MCH 28.4 PG (27-31); MCHC 30.2 g/dL (33-37); MCV 93.9 FL (81-99); MONO% 6.6 % (1.7-9.3); MPV 10.5 FL (7.4-10.4); NEUT% 76.4 % (42.2-75.2); PLT 276 X1000 (130-400); RBC 3.63 XMIL (4.2-5.4)
[2016-12-07 02:10] LABS: EOS# 0.08 X1000 (0.0-0.7); IMM GRAN# 0.03 X1000 (0.0-0.04); MONO# 0.79 X1000 (0.11-0.59)
--- NOTE | 2016-12-07 05:58 | PROVIDER DOCUMENTATION ---
This chart was entered by Lucie Aguayo Scribe, acting as scribe for Manuel Mansfield MD. HPI-General Adult - General Source: patient - History of Present Illness -Gen Adult Nature of Presenting Problems: 31 year old F presents to the Ed with a request for IV medication. PT states that she left AMA November 15 from the hospital due to her sons birthday. PT states that she was being treated for endocarditis. PT states that she was told that she had 40 more days of antibiotics the day she left. PT states that she wakes every morning hurting in her lungs, swelling, and her heart rate is fast. Severity: reports: mild Timing: reports: still present Modifying Factors: improves with: nothing Associated Symptoms: reports: shortness of breath Similar Symptoms Previously?: Yes Recently seen or treated by another doctor?: Yes <Manuel Mansfield - Last Filed: 12/07/16 05:58> - General Source: patient - History of Present Illness -Gen Adult Severity: reports: mild Timing: reports: still present Similar Symptoms Previously?: Yes Recently seen or treated by another doctor?: Yes <Olivier Melendrez - Last Filed: 12/07/16 06:20> - General Chief Complaint: Request RX Stated Complaint: IV MEDICATION REQUEST Time Seen by Provider: 12/06/16 23:41 Allergies/Adverse Reactions: Patient Allergies Allergy/AdvReac Type Severity Reaction Status Date / Time No Known Allergies Allergy Verified 10/29/16 03:58 Home Medications: Home Medication List Medication Instructions Recorded Confirmed Last Taken Type Buprenorphine S.l. [Subutex] 1 tab PO TID 10/14/16 12/06/16 12/05/16 20:00 History 8 MG Review of Systems - Adult - REVIEW OF SYSTEMS - ADULT Constitutional: denies: chills, fever Eyes: reports: no symptoms reported Ears, Nose, Mouth & Throat: reports: no symptoms reported Cardiovascular: reports: edema. denies: chest pain Respiratory: reports: shortness of breath. denies: cough Gastrointestinal: denies: nausea, vomiting Genitourinary: denies: dysuria, hematuria Musculoskeletal: denies: bone pain, muscle aches Integumentary: denies: skin sores/ulcer, skin thickening Neurological: reports: no symptoms reported Psychiatric: reports: no symptoms reported Endocrine: reports: no symptoms reported Hematologic/Lymphatic: reports: no symptoms reported Allergic/Immunologic: reports: no symptoms reported All Other Systems: Reviewed and Negative <Manuel Mansfield - Last Filed: 12/07/16 05:58> - REVIEW OF SYSTEMS - ADULT Constitutional: denies: chills, fever Eyes: denies: discharge, blurred vision Ears, Nose, Mouth & Throat: denies: ear pain, sinus problem Cardiovascular: denies: chest pain, irregular heart rate Respiratory: reports: shortness of breath. denies: cough, excessive sputum production Gastrointestinal: denies: constipation, diarrhea, nausea, vomiting Genitourinary: denies: dysuria, hematuria Musculoskeletal: denies: bone pain, muscle aches Integumentary: denies: skin sores/ulcer, skin thickening Neurological: denies: no symptoms reported, ataxia, loss of balance Psychiatric: denies: no symptoms reported, anti-depressant use, emotional problems Endocrine: denies: goiter, cold intolerance, heat intolerance Hematologic/Lymphatic: denies: low blood count, lymphedema Allergic/Immunologic: denies: allergic rhinitis, eczema, food allergy <Olivier Melendrez - Last Filed: 12/07/16 06:20> Past History - Adult - PAST MEDICAL HISTORY-ADULT Review of Records: reports: Nursing Assessment Review, Medications Reviewed Major Childhood Illnesses: reports: denies history Cardiovascular: reports: other (endocarditis) Respiratory: reports: pneumonia Obstetrical/Gynecological: reports: other (C-S x 4) Neurological: reports: denies history Psychiatric: reports: denies history Endocrine/Immune: reports: denies history Other Conditions: reports: MRSA - PRIOR SURGERIES/PROCEDURES Surgical/Procedure History: reports: (x4) - IMMUNIZATION STATUS Childhood Immunizations: See Nurse Assessment Flu Vaccine: See Nurse Assessment - SOCIAL HISTORY Smoking: cigarettes Provider spent 3-5 mins advising pt. on dangers of tobacco.: Discussed manners to quit use, and f/u contacts for add'l counseling. Substance Use: denies Alcohol Use Frequency: never <Manuel Mansfield - Last Filed: 12/07/16 05:58> - PAST MEDICAL HISTORY-ADULT Review of Records: reports: Nursing Assessment Review, Medications Reviewed Cardiovascular: reports: other <Olivier Melendrez - Last Filed: 12/07/16 06:20> Physical Exam-General - PHYSICAL EXAM-ADULT Initial Vital Signs Reviewed: Yes - CONSTITUTIONAL General Appearance: appears well, alert, no apparent distress - NECK Neck: other (JVD) - RESPIRATORY Respiratory: chest non-tender, lungs clear, normal breath sounds - CARDIOVASCULAR Cardiovascular: tachycardia - GASTROINTESTINAL (ABDOMEN) Abdominal Exam: non tender, other (fullness) - SKIN Integumentary: normal color, normal turgor, warm/dry - PSYCHIATRIC Psych/Mental Status: normal mood/affect, normal thought content, normal thought process, oriented x 3 <Manuel Mansfield - Last Filed: 12/07/16 05:58> - PHYSICAL EXAM-ADULT Initial Vital Signs Reviewed: Yes - CONSTITUTIONAL General Appearance: appears well, alert, no apparent distress - EYES Eyes: PERRL/EOMI, pink conjunctivae - NECK Neck: non-tender, full range of motion, supple - RESPIRATORY Respiratory: chest non-tender, lungs clear, normal breath sounds, no pleuratic chest pain, no respiratory distress, no accessory muscle use - CARDIOVASCULAR Cardiovascular: normal peripheral pulses, regular rate, rhythm, no edema, no gallop, no JVD, no murmur, tachycardia - GASTROINTESTINAL (ABDOMEN) Abdominal Exam: normal bowel sounds, non tender, soft, other - LYMPHATIC Lymphatic: no adenopathy - MUSCULOSKELETAL Back Exam: normal inspection, no CVA tenderness, no vertebral tenderness Extremity: normal range of motion, non-tender, normal gait, normal inspection - NEUROLOGIC Neurologic: knowledge analyst II-XII nml as tested, grossly normal, no motor/sensory deficits - PSYCHIATRIC Psych/Mental Status: normal mood/affect, normal thought content, normal thought process, oriented x 3 <Olivier Melendrez - Last Filed: 12/07/16 06:20> Progress - PLAN OF CARE/RESULTS Progress/Plan/Lab Results: Vital Signs - 8 hr 12/06/16 23:33 Pulse Rate 102 H Respiratory Rate 18 Blood Pressure 132/092 O2 Sat by Pulse Oximetry 98 Result Diagrams: 12/07/16 00:30 12/06/16 00:30 - EKG 1 Time of EKG reading by physician:: 00:45 EKG Read and Signed by:: Manuel Mansfield EKG Interpretation (*Must complete 3 of following elements*): Abnormal Rate: 94 Rhythm: NSR Comments: cannot rule out inferior infarct, age undetermined. - XRAY 1 XRAY Study: Chest Impression: Abnormal (mulitiple infiltrates, no air fluid levels: Dr. Mansfield(ER MD)) - CHANGE OF SHIFT REPORT (ED Provider) Report Given and Care Transferred to:: candace Time of Transfer: 05:57 Items Pending: Physician Consult/Arrival <Manuel Mansfield - Last Filed: 12/07/16 05:58> - PLAN OF CARE/RESULTS Progress/Plan/Lab Results: Vital Signs - 8 hr 12/06/16 23:33 12/07/16 01:42 12/07/16 06:04 Temperature 98.3 F 98.6 F Pulse Rate 102 H 93 H 99 H Respiratory Rate 18 20 22 Blood Pressure 132/092 114/83 135/88 O2 Sat by Pulse Oximetry 98 97 95 Laboratory Results - last 24 hr 12/06/16 12/06/16 12/07/16 00:30 00:30 00:30 WBC 11.93 H RBC 3.63 L Hgb 10.3 L Hct 34.1 L MCV 93.9 MCH 28.4 MCHC 30.2 L RDW Std Deviation 19.4 H Plt Count 276 MPV 10.5 H Immature Gran % (Auto) 0.3 Neut % (Auto) 76.4 H Lymph % (Auto) 15.5 L [place] % (Auto) 6.6 Eos % (Auto) 0.7 Baso % (Auto) 0.5 Immature Gran # (Auto) 0.03 Neut # (Auto) 9.12 H Lymph # (Auto) 1.85 [place] # (Auto) 0.79 H Eos # (Auto) 0.08 Baso # (Auto) 0.06 ESR 39 H Sodium 136 Potassium 3.2 L Chloride 101 Carbon Dioxide 21 L Anion Gap 15 BUN 11 Creatinine 0.5 Estimated GFR/1.73 m2 > 60 BUN/Creatinine Ratio 22 Glucose 102 Calculated Osmolality 272 Calcium 8.2 L Total Bilirubin 0.40 AST 6 L ALT 8 L Alkaline Phosphatase 143 H Total Protein 7.3 Albumin 2.5 L Globulin 5.0 Albumin/Globulin Ratio 1.0 Orders Category Date Time Status Admit Patient To Inpatient Status Routine AdmDCTranf 12/07/16 06:10 Ordered CHEST-2 VIEWS [RAD] Stat Exams 12/07/16 00:00 Taken BLOOD CULTURE [BLDCUL] Stat Lab 12/06/16 23:54 Ordered CBC WITH DIFF [HEME] Stat Lab 12/07/16 00:30 Completed COMPREHENSIVE METABOLIC PANEL [CHEM] Stat Lab 12/06/16 00:30 Completed SED RATE [HEME] Stat Lab 12/06/16 00:30 Completed EKG [EKG] Stat Ther 12/06/16 23:52 Draft Result Diagrams: 12/07/16 00:30 12/06/16 00:30 - CONSULTS/PCP/HOSPITALIST Notification #1 *Consult/PCP/Hospitalist*: Dr Martinez Time Discussed: 06:12 Consult Disposition: Admit (Dr Barahona at [facility] never got back to us so we are transferring to [facility]) <Olivier Melendrez - Last Filed: 12/07/16 06:20> Departure <Manuel Mansfield - Last Filed: 12/07/16 05:58> - Departure Date of Disposition Decision: 12/07/16 Time of Disposition Decision: 06:13 Certified Medical Emergency: Emergent - Critical Care Note This patient required my direct & personal management of CC.: No <Olivier Melendrez - Last Filed: 12/07/16 06:20> - Departure DIAGNOSIS: Endocarditis due to Staphylococcus Disposition: ADMITTED INPATIENT 09 Condition: Stable Referrals and Follow-Ups: None,PCP [Primary Care Provider] - Attestation - Physician/ [facility] Attestation The physician spent face to face time with patient:: Yes Advanced Practice Provider documentation review:: Supervising physician onsite and consulted in the evaluation and care of this patient. The physician did have a face to face encounter with the patient. <Olivier Melendrez - Last Filed: 12/07/16 06:20> This chart was documented by the indicated scribe, (Lucie Aguayo Scribe) and accurately reflects the services I performed and decisions made by me, Manuel Mansfield MD, as attested by the provider's signature.
--- NOTE | 2016-12-07 08:04 | Diag Imaging Result Doc PS360 ---
CHEST-2 VIEWS - 12/07/2016 INDICATION: sob TECHNIQUE: COMPARISON: 11/10/2016 FINDINGS: There is improvement in the dense multifocal alveolar infiltrates in the midlungs and lung bases. There are worsening trace pleural effusions, right greater than left. Stable mild cardiomegaly. Pulmonary vascularity remains normal. IMPRESSION: Mixed changes from prior. Electronically signed by Devante Chew 12/07/2016 8:02 AM
[2016-12-07] MEDS ORDERED: RIFAMPIN PO ONE (12:09)
[2016-12-07] MEDS ORDERED: VANCOMYCIN IV PER PHARMACY MISC SCH (12:15)
[2016-12-07] MEDS ORDERED: GENTAMICIN IV PER PHARMACY MISC SCH (12:15)
[2016-12-07] MEDS ORDERED: TYLENOL PO PRN (13:18)
[2016-12-07] MEDS ORDERED: ZOFRAN IV PRN (13:18)
[2016-12-07] MEDS ORDERED: NS 1,000 ML IV SCH (13:18)
[2016-12-07] MEDS ORDERED: NS IV SCH (14:00)
[2016-12-07] MEDS ORDERED: GENTAMICIN IV SCH (14:00)
[2016-12-07] MEDS: RIFAMPIN PO SCH (14:13)
[2016-12-07] MEDS: SUBUTEX SL SCH ×2 (14:13→17:33)
[2016-12-07] MEDS ORDERED: NS IV ONE (14:45)
[2016-12-07] MEDS ORDERED: GENTAMICIN IV ONE (14:45)
[2016-12-07] MEDS ORDERED: VANCOMYCIN 1,400 MG in NS 250 ML IV ONE (15:00)
[2016-12-07] MEDS ORDERED: RESTORIL PO SCH (21:00)
[2016-12-07 21:52] LABS: URINE CULTURE PL NEEDED? NO
[2016-12-07 22:09] LABS: BILIRUBIN URINE NEGATIVE (NEGATIVE); BLOOD URINE NEGATIVE (NEGATIVE); CLARITY CLEAR (CLEAR); GLUCOSE URINE NEGATIVE (NEGATIVE); LEUKOCYTES URINE NEGATIVE (NEGATIVE); NITRITE URINE NEGATIVE (NEGATIVE); PROTEIN URINE TRACE mg/dL (NEGATIVE)
[2016-12-07 22:10] LABS: COLOR ORANGE; URINE SOURCE CLEAN CATCH
[2016-12-07 22:11] LABS: URINE WBC <10 /HPF (<10)
[2016-12-07 22:12] LABS: URINE EPITHELIAL CELLS <10 /HPF (<10); URINE RBC <10 /HPF (<10); UROBILINOGEN URINE 3+(8 mg/dL)
[2016-12-08] MEDS ORDERED: VANCOMYCIN 1 GM/NS 1 GM/250 ML IVPB IV SCH (03:00)
[2016-12-08] MEDS ORDERED: PRILOSEC PO SCH (07:00)
[2016-12-08 07:47] LABS: BASO% 0.5 % (0.0-0.8); EOS# 0.07 X1000 (0.0-0.7); EOS% 0.8 % (0.0-10.0); HEMATOCRIT 32.3 % (37.0-47.0); HEMOGLOBIN 9.6 g/dL (12.0-16.0); IMM GRAN# 0.02 X1000 (0.0-0.04); IMM GRAN% 0.2 % (0.0-0.5); LYMPH# 2.29 X1000 (1.2-3.4); MANUAL DIFF NEEDED? NO; MCH 27.7 PG (27-31); MCHC 29.7 g/dL (33-37); MCV 93.1 FL (81-99); MONO% 8.2 % (1.7-9.3); MPV 10.5 FL (7.4-10.4); NEUT% 63.3 % (42.2-75.2); PLT 264 X1000 (130-400); RBC 3.47 XMIL (4.2-5.4)
[2016-12-08 07:51] LABS: INR 1.19 (0.86-1.15); PROTIME 16.1 Seconds (12.1-15.5)
[2016-12-08 07:52] LABS: AGAP 14; ALBUMIN 2.4 g/dL (3.5-5.0); ALKALINE PHOSPHATASE 138 U/L (32-104); BUN 11 mg/dL (8-22); CALCIUM 8.2 mg/dL (8.8-10.2); CHLORIDE 103 mmol/L (98-107); COSMO 275; GOT 6 U/L (10-30); GPT 5 U/L (10-36); MAGNESIUM 1.8 mg/dL (1.5-2.7); POTASSIUM 4.2 mmol/L (3.5-5.1); SODIUM 138 mmol/L (136-145); TCO2 21 mmol/L (25-35); TOTAL PROTEIN 6.4 g/dL (6.3-8.3)
[2016-12-08 07:52] LABS: PTT PL 33.3 Seconds (22.6-43.9)
[2016-12-08] MEDS ORDERED: LOVENOX SUBQ SCH (08:00)
[2016-12-08] MEDS ORDERED: MAXIPIME 1 GM/NS 1 GM/50 ML IVPB IV SCH (08:00)
--- NOTE | 2016-12-08 08:39 | EKG Report ---
Test Performed on : 12/08/2016 07:44:25 AM Test Reason : chest pain Blood Pressure : / mmHG Vent. Rate : 095 BPM Atrial Rate : 095 BPM P-R Int : 152 ms QRS Dur : 070 ms QT Int : 352 ms P-R-T Axes : 062 091 083 degrees QTc Int : 442 ms Normal sinus rhythm. Possible Left atrial enlargement Rightward axis Low voltage QRS Borderline ECG When compared with ECG of 07-DEC-2016 00:45, (Unconfirmed) Minimal criteria for Inferior infarct are no longer present Confirmed by Manuel Mansfield MD ([id number]) on 01/10/2017 7:26:58 PM
[2016-12-08] MEDS ORDERED: RIFAMPIN PO SCH ×2 (09:00)
[2016-12-08] MEDS ORDERED: NS IV SCH (09:00)
[2016-12-08] MEDS ORDERED: GENTAMICIN IV SCH (09:00)
[2016-12-08] MEDS: SUBUTEX SL SCH ×3 (09:02→16:46)
[2016-12-08] MEDS: RIFAMPIN PO SCH (09:02)
[2016-12-08] MEDS ORDERED: NICODERM PATCH TD SCH (10:30)
[2016-12-08] MEDS: NS IV SCH ×2 (11:27→18:40)
[2016-12-08] MEDS: GENTAMICIN IV SCH ×2 (11:27→18:40)
[2016-12-08 15:03] VITALS: BP 134/92
[2016-12-08] MEDS ORDERED: NS 1,000 ML IV SCH (18:47)
--- NOTE | 2016-12-08 19:23 | PROGRESS NOTE ---
DATE: 12/08/2016 PRESENT ILLNESS: The patient has a Methicillin-resistant Staph aureus tricuspid valve endocarditis with associated pneumonia most likely due to septic emboli. The patient is totally noncompliant. She has signed out of the hospital against medical advice 3-4 times. MEDICATIONS: The patient is on a combination of vancomycin, rifampin and gentamicin. PHYSICAL EXAMINATION: Vital Signs: Temperature was earlier 101.3, now it is 98. Pulse 90, respirations 16, blood pressure 100/79. Patient's weight is 102 pounds. General: This is a cachectic-appearing young female. She is in no acute distress. Ear, nose, throat: Patient has multiple caries. Neck: No meningismus. Lungs: Clear to auscultation. Cardiovascular: Regular heart rate. I did not hear a murmur tonight. Abdomen: Soft and nontender. Neurologic: Patient is awake. She can move her extremities. There is no tremor. LAB AND X-RAY: Chest x-ray shows cardiomegaly and improved infiltrates with worse left pleural effusion. The patient's CBC shows a white count of 8490, hemoglobin 9.6, and platelet count 264,000. Creatinine is 0.5. GFR is greater than 60. Liver function studies are normal except for an alkaline phosphatase of 138. Urinalysis shows no white cells and 1+ bacteria. ASSESSMENT AND PLAN: Patient has endocarditis. We are going to continue her current antimicrobial agents. COMORBIDITIES: She is an IV drug abuser. She has been totally noncompliant with treatment of her endocarditis. cc: Agustín Baldwin MD
[2016-12-08] MEDS ORDERED: MUCINEX PO SCH (20:00)
--- NOTE | 2016-12-08 20:35 | PROGRESS NOTE ---
DATE: 12/08/2016 SUBJECTIVE: Patient without any new complaints. States that she feels okay. Denies any chest pain, palpitations. Denies any fevers, chills. OBJECTIVE: Vital Signs: Reviewed. She is afebrile. Blood pressure is stable. Heart rate 98. General: Patient is awake, alert, oriented. She is currently in no real respiratory distress. Pleasant to talk with. Neck: Supple. CV: Regular rate. Chest: Clear. Abdomen: Soft. Extremities: Moves all extremities. Neurologic: No focal changes. Skin: Warm and dry. No rashes. LABS: Reviewed. ASSESSMENT: 1. Methicillin-resistant Staphylococcus aureus endocarditis. 2. Chronic medical noncompliance. 3. Known recent intravenous drug use. 4. Chronic tobacco abuse. PLAN: Again discussed with the patient the perils of not treating her endocarditis could lead to . The patient states she understands and at least at the moment states she is willing to stay in the hospital. We will continue nicotine patch. Further orders as needed. cc: Tom Carlos MD
--- NOTE | 2016-12-08 20:47 | HISTORY AND PHYSICAL ---
DATE: 12/08/2016 CHIEF COMPLAINT: Infection. HISTORY OF PRESENT ILLNESS: The patient is a 31-year-old female who unfortunately has been quite noncompliant with her medical history as of late. She has known endocarditis and has left the hospital multiple times despite knowing that she could easily from her current infection. This time she left November 15 which she states was due to her son's birthday although interestingly she did not return to the hospital until December 07. Patient unfortunately cannot go home with IV access to treat her endocarditis given her known history of IV drug use. ALLERGIES: No known drug allergies. MEDICATIONS: Subutex 1 tab b.i.d. which patient is compliant with. REVIEW OF SYSTEMS: As noted above. Patient currently denies any fever although does state that she has been tired, fatigued and short of breath. Denies any chest pain. Denies any true palpitations. States she has been eating and drinking well. Denies any diarrhea, constipation, melena, hematochezia. Denies any other GI or issues. FAMILY HISTORY: Noncontributory. SOCIAL HISTORY: Patient lives at home. She has a live-in boyfriend. She does have children. She does smoke. She has a known long-term history of IV drug use for which she is on Subutex, however, she has left the hospital once already and gone home and used IV drugs. PAST MEDICAL HISTORY: Methicillin-resistant Staph aureus endocarditis, recurrent pneumonia, C- section x4, recurrent IV drug use. PHYSICAL EXAMINATION: Vital Signs: Reviewed. Temperature 99 degrees, pulse 102, respiratory 18, BP 132/92, sat 98% on room air. General: Patient is awake, alert. She is currently in no respiratory distress. HEENT: Normocephalic, atraumatic. KRISSY. She has very poor dentition presumably secondary to drug use. Neck: Supple. Cardiovascular: Regular rate. Chest: Clear. Abdomen: Soft. Extremities: Moves all extremities. Neurologic: No changes. DIAGNOSTIC DATA: WBC is 11.9, hemoglobin and hematocrit 10 and 30, potassium 3.2. Otherwise CMP normal. ASSESSMENT: 1. Endocarditis presumed secondary to Methicillin-resistant Staphylococcus aureus. 2. Leukocytosis. 3. Chronic drug abuse with recent IV drug use. 4. Medical noncompliance. 5. Chronic tobacco abuse. PLAN: I again discussed with patient in very concise terms that she has an infection on her heart valves and if untreated could lead to need to replace her heart valves, could lead to cardiac arrest. I did discuss with her also this could lead to septic emboli to her brain which would cause a stroke. I discussed with her very bluntly that any of these events could cause her to and she would no longer be able to see any of her children's birthdays. I discussed with her that it is imperative that she stay in the hospital, that she complete treatment. Patient acknowledged understanding. cc: Tom Carlos MD
--- NOTE | 2016-12-09 16:59 | DISCHARGE SUMMARY ---
ADMISSION DATE: 12/07/2016 DISCHARGE DATE: 12/08/2016 DISCHARGE DIAGNOSES: 1. Patient again left against medical advice. 2. Endocarditis secondary to methicillin-resistant Staphylococcus aureus. 3. Leukocytosis. 4. Chronic drug abuse with recent IV drug use. 5. Medical noncompliance. 6. Chronic tobacco abuse. 7. Chronic opiate abuse currently on Subutex. CONSULTATIONS: Anesthesiology. PROCEDURES: IV access. BRIEF HOSPITAL COURSE: Patient is a 31-year-old female, who unfortunately as noted in the HPI again has left against medical advice. Discussed with her in very specific terms on admission that she has an infection that can lead to heart attack, stroke, and even . Discussed with patient that she certainly needs to remain in the hospital to be treated. However late on the evening of the , Ms. Kirk once again decided that she was leaving the hospital. Unfortunately given her chronic history and very recent history of IV drug use she is not a candidate to have a PICC line placed and be discharged home. As patient was awake, alert and oriented she was allowed to leave AMA. She acknowledged that she was risking with leaving. cc: Tom Carlos MD
== END 2016-12-08 20:14 | disposition left against medical advice (07) ==
LOC: P.ED 23:26 → SUATTDRO 12-07 08:38 → EDIPHOLD 12-07 08:38 → P.MEDSURG 12-07 13:17
PROVIDERS: ATTEND Family Medicine